=== PATIENT | male | born 1960 | race Caucasian/White ===

== ENCOUNTER 2016-10-07 15:48 | Inpatient (IN) | payer BC ==
[2016-10-07] MEDS ORDERED: METOCLOPRAMIDE 5 MG/ML 2 ML VIAL IVP STA (16:37)
[2016-10-07] MEDS ORDERED: SODIUM CHLORIDE 0.9% 500 ML IV STA (16:38)
[2016-10-07] MEDS ORDERED: PHENYTOIN SODIUM INJ 1,000 MG in SODIUM CHLORIDE 0.9% 100 ML IVPB STA (16:45)
[2016-10-07 16:52] LABS: Basophils # (A) 0.1 k/uL (0-0.2); Basophils % (A) 1 %; CH 36.2; CHCM 33.7; Eosinophils # (A) 0.1 k/uL (0-0.7); Eosinophils % (A) 1 %; HCT 44.4 % (39.0-53.0); HDW 2.35; HGB 14.6 gm/dL (13.0-17.5); Luc # (Auto) 0.15; Luc % (Auto) 2; Lymphocytes % (A) 13 %; MCH 35.4 pg (25.0-35.0); MCHC 32.9 g/dL (31.0-37.0); MCV 107.6 fL (80.0-100.0); Macrocytosis Moderate; Mean Platelet Volume 7.7; Monocytes # (A) 0.6 k/uL (0-1.0); Monocytes % (A) 7 %; Neutrophils # (A) 5.9 k/uL (1.3-7.7); Neutrophils % (A) 77 %; RBC 4.13 m/uL (4.30-5.90); RDW 12.4 % (11.5-15.5); WBC 7.7 k/uL (3.8-10.6); WBC (Perox) 7.94
[2016-10-07] MEDS ORDERED: DILTIAZEM 125 MG in SODIUM CHLORIDE 0.9% 100 ML IV SCH (17:00)
[2016-10-07 17:01] LABS: ALT 160 U/L (21-72); AST 192 U/L (17-59); Alkaline Phosphatase 75 U/L (38-126); Anion Gap 21 mmol/L; Blood Urea Nitrogen 8 mg/dL (9-20); Calcium 10.1 mg/dL (8.4-10.2); Carbon Dioxide 18 mmol/L (22-30); Chloride 105 mmol/L (98-107); Glucose 182 mg/dL (74-99); Non-African American GFR(MDRD) >60 (>60 ml/min/1.73 sqM); Potassium 4.2 mmol/L (3.5-5.1); Sodium 144 mmol/L (137-145); Total Bilirubin 1.2 mg/dL (0.2-1.3); Total Protein 7.5 g/dL (6.3-8.2)
[2016-10-07 17:17] LABS: INR 1.5 (<1.1); Prothrombin Time 14.5 sec (9.0-12.0)
--- NOTE | 2016-10-07 17:35 | ED ---
General Adult HPI - General Chief complaint: Seizure Stated complaint: seizure Time Seen by Provider: 10/07/16 16:23 Source: patient, family, EMS, RN notes reviewed Mode of arrival: EMS Limitations: no limitations - History of Present Illness Initial comments: Chief complaint and history of present illness a 55-year-old male here with his . The patient was brought emergency room by EMS. He this patient had a witnessed seizure last approximate 1 minute tonic-clonic. Followed by 5 minutes of postictal phase. Afterwards she was more alert and back to his normal self. The patient did bite his tongue. The bleeding is under control. The patient was brought emergency room by EMS and was noted that heart rate was fast new diagnosis today aside from his seizure which also occurred 2 years ago would be new-onset A. fib with RVR rate 150. The patient otherwise at this time denying chest pain shortness of breath or headache. He is answering questions appropriately. Past history includes having had 2 seizures while on vacation in [place] 2 years ago. He was transferred back to the Hospital and had a workup for seizure disorder. For the past 2 years she's been on Keppra decreasing dose until last month when it was stopped. He is only taking approximately 60 mg daily. It was decided he should stop. - Related Data Home Medications Medication Instructions Recorded Confirmed Esomeprazole Magnesium [Nexium] 40 mg PO DAILY 05/25/14 10/07/16 Fenofibric Acid (Choline) 135 mg PO DAILY 05/25/14 10/07/16 [Trilipix] Fluticasone Propionate [Flonase] 1 spray EA NOSTRIL DAILY 05/25/14 10/07/16 Lisinopril [Prinivil] 20 mg PO DAILY 05/25/14 10/07/16 Rivaroxaban [Xarelto] 20 mg PO DAILY 05/25/14 10/07/16 Cholecalciferol [Vitamin D3] 1,000 unit PO DAILY 10/07/16 10/07/16 Niacin 1,000 mg PO DAILY 10/07/16 10/07/16 [place]-3 Fatty Acids/Fish Oil [Fish 1 cap PO DAILY 10/07/16 10/07/16 Oil 1,000 mg Softgel] Vitamin B Complex 1 cap PO DAILY 10/07/16 10/07/16 Allergies Allergy/AdvReac Type Severity Reaction Status Date / Time Iodinated Contrast Media - Allergy throat Verified 10/07/16 16:24 Oral and swelling [Iodinated Contrast Media - IV Dye] lorazepam [From Ativan] Allergy Unknown Verified 10/07/16 16:24 shellfish derived Allergy throat Verified 10/07/16 16:24 swelling dimenhydrinate AdvReac SEIZURES Verified 10/07/16 16:24 [From Dramamine] diphenhydramine AdvReac SEIZURES Verified 10/07/16 16:24 [From Benadryl] steri strips AdvReac Rash/Hives Uncoded 05/25/14 08:44 Review of Systems ROS Statement: Those systems with pertinent positive or pertinent negative responses have been documented in the HPI. Review of systems at this time the patient is not complaining of a headache no visual acuity changes she does have a wound to his left side of his tongue where he bit it. Not bleeding now no chest pain shows breath GI/ problems. He does have an intentional tremor which is no worse today than it has been in the past. All systems are otherwise reviewed. Past medical problems significant for prostate cancer. DVT 5 years ago on Xarelto has not missed any doses. GERD, hyperlipidemia, hypertension, seizures disorder as noted in the chief complaint. In the benign hand tremor. The patient's surgeries include prostate surgery, knee surgery. Family history family member had multiple myeloma. The patient has ALLERGIES to iodine, and Ativan, diphenhydramine, Steri-Strips. She reports she smoked a little while in high school but not since then. He does drink several glasses of wine daily. We did discuss the possibility of seizure secondary to not having had any alcohol for the past 24 hours. ROS Other: All systems not noted in ROS Statement are negative. Past Medical History Past Medical History: Cancer, Deep Vein Thrombosis (DVT), GERD/Reflux, Hyperlipidemia, Hypertension, Seizure Disorder Additional Past Medical History / Comment(s): benign hand tremors, DVT leg 18 months ago, hx prostate cancer History of Any Multi-Drug Resistant Organisms: None Reported Past Surgical History: Orthopedic Surgery, Prostate Surgery Additional Past Surgical History / Comment(s): knee surg., robotic prostatectomy Past Anesthesia/Blood Transfusion Reactions: No Reported Reaction Past Psychological History: No Psychological Hx Reported Smoking Status: Never smoker Past Alcohol Use History: Occasional Past Drug Use History: None Reported General Exam - General Exam Comments Initial Comments: General: The patient is awake and alert, in no distress, and does not appear acutely ill. Vital signs show temperature 97.6 pulse 140, new onset A. fib, respiratory rate 18 pulse ox 90% in room air blood pressure 133/72. Mildly elevated systolic noted patient will be admitted to the hospital for further evaluation. Eye: Pupils are equal, round and reactive to light, extra-ocular movements are intact ; there is normal conjunctiva bilaterally. No signs of icterus. Ears, nose, mouth and throat: There are moist mucous membranes , patient bit the left side of his tongue leading control. Neck: The neck is supple, there is no tenderness . Cardiovascular: Lungs are clear to auscultation heart rate 150-160. EKG shows no onset A. fib. No murmur appreciated this time. Respiratory: Lungs are clear to auscultation, respirations are non-labored, breath sounds are equal. No wheezes, stridor, rales, or rhonchi. Gastrointestinal: Soft, non-distended, non-tender abdomen without masses or organomegaly noted. There is no rebound or guarding present. No CVA tenderness. Bowel sounds are unremarkable. Back: There is no tenderness to palpation in the midline. There is no obvious deformity. No rashes noted. Musculoskeletal: Normal ROM, no tenderness, There is no pedal edema. There is no calf tenderness or swelling. Sensation intact. Pulses equal bilaterally 2+. Neurological: CN II-XII intact, There are no obvious motor or sensory deficits. Coordination appears grossly intact. Speech is normal. No focal or lateralizing findings. Skin: Skin is warm and dry and no rashes or lesions are noted. Limitations: no limitations Course Vital Signs 10/07/16 10/07/16 15:56 17:19 Temperature 97.6 F Pulse Rate 89 168 H Respiratory 18 18 Rate Blood Pressure 133/72 115/81 O2 Sat by Pulse 93 L 92 L Oximetry Medical Decision Making - Medical Decision Making Medical decision-making. The patient will be given Dilantin 1 g consultation from neurology. The patient will also be given a banana bag for possibility of alcohol related seizure from withdrawal. The patient is at this time receiving Cardizem drip after 5 mg of Cardizem was administered. New-onset A. fib. The patient is already on Xarelto murmur previous DVT. Labs show white count 7.7 hemoglobin 14 hematocrit 44 with an INR 1.5. AST ALT elevated. Potassium 4.2 BUN 8 creatinine 0.88 GFR greater than 60. Case discussed with Dr. Jo, patient be admitted to his service with cardiac ALLERGY consultation as well as neurology consult. - Lab Data Result diagrams: 10/07/16 16:04 10/07/16 16:04 Lab Results 10/07/16 10/07/16 10/07/16 Range/Units 16:04 16:04 16:04 WBC 7.7 (3.8-10.6) k/uL RBC 4.13 L (4.30-5.90) m/uL Hgb 14.6 (13.0-17.5) gm/dL Hct 44.4 (39.0-53.0) % MCV 107.6 H (80.0-100.0) fL MCH 35.4 H (25.0-35.0) pg MCHC 32.9 (31.0-37.0) g/dL RDW 12.4 (11.5-15.5) % Plt Count 231 (150-450) k/uL Neutrophils % 77 % Lymphocytes % 13 % Monocytes % 7 % Eosinophils % 1 % Basophils % 1 % Neutrophils # 5.9 (1.3-7.7) k/uL Lymphocytes # 1.0 (1.0-4.8) k/uL Monocytes # 0.6 (0-1.0) k/uL Eosinophils # 0.1 (0-0.7) k/uL Basophils # 0.1 (0-0.2) k/uL Macrocytosis Moderate PT 14.5 H (9.0-12.0) sec INR 1.5 (<1.1) Sodium 144 (137-145) mmol/L Potassium 4.2 (3.5-5.1) mmol/L Chloride 105 (98-107) mmol/L Carbon Dioxide 18 L (22-30) mmol/L Anion Gap 21 mmol/L BUN 8 L (9-20) mg/dL Creatinine 0.88 (0.66-1.25) mg/dL Est GFR (MDRD) Af Amer >60 (>60 ml/min/1.73 sqM) Est GFR (MDRD) Non-Af >60 (>60 ml/min/1.73 sqM) Glucose 182 H (74-99) mg/dL Calcium 10.1 (8.4-10.2) mg/dL Total Bilirubin 1.2 (0.2-1.3) mg/dL AST 192 H (17-59) U/L ALT 160 H (21-72) U/L Alkaline Phosphatase 75 (38-126) U/L Total Protein 7.5 (6.3-8.2) g/dL Albumin 4.7 (3.5-5.0) g/dL Disposition Clinical Impression: Seizure disorder, Atrial fibrillation with RVR Disposition: ADMITTED IP TO THIS HOSP Condition: Serious
[2016-10-07] MEDS ORDERED: IBUPROFEN 400 MG TAB PO PRN (17:36)
[2016-10-07] MEDS ORDERED: NALOXONE 0.4 MG/ML 1 ML VIAL IV PRN (17:36)
[2016-10-07] MEDS ORDERED: SODIUM CHLORIDE 0.9% 1,000 ML with MVI, ADULT NO.4 WITH VIT K 10 ML, THIAMINE 100 MG, F... IV ONE ×4 (18:00)
[2016-10-07] MEDS ORDERED: DILTIAZEM 5 MG/ML 5 ML VIAL IVP STA (19:38)
[2016-10-07] MEDS ORDERED: levETIRAcetam IV 1,000 MG in SALINE 1 100ML.BAG IVPB STA (20:56)
[2016-10-07 21:00] LABS: Creatine Kinase 564 U/L (55-170)
[2016-10-07] MEDS ORDERED: AMIODARONE 450 MG in DEXTROSE 5% IN WATER 250 ML IV SCH ×4 (21:00→21:40)
[2016-10-07 21:13] LABS: Creatine Kinase MB 0.7 ng/mL (0.0-2.4); Troponin I <0.012 ng/mL (0.000-0.034)
[2016-10-07] MEDS ORDERED: DIAZEPAM 5 MG/ML 2 ML SYRINGE IVP STA ×2 (21:26→21:27)
[2016-10-07] MEDS ORDERED: DEXTROSE 5% IN WATER 100 ML with AMIODARONE 150 MG IV ONE (21:30)
--- NOTE | 2016-10-07 21:33 | CT ---
EXAMINATION TYPE: CT brain wo con DATE OF EXAM: 10/07/2016 9:25 PM COMPARISON: NONE HISTORY: Seizure today after stopping seizure medications x [address] DLP: 1047.10 mGycm Automated exposure control for dose reduction was used. FINDINGS: There is mild cerebral cortical atrophy. There is no mass effect nor midline shift. There is no sign of intracranial hemorrhage. The calvarium is intact. IMPRESSION: Mild atrophy. Otherwise negative exam.
--- NOTE | 2016-10-07 22:23 | ED ---
Medical Decision Making - Lab Data Result diagrams: 10/07/16 16:04 10/07/16 16:04 Lab Results 10/07/16 10/07/16 10/07/16 Range/Units 16:04 16:04 16:04 WBC 7.7 (3.8-10.6) k/uL RBC 4.13 L (4.30-5.90) m/uL Hgb 14.6 (13.0-17.5) gm/dL Hct 44.4 (39.0-53.0) % MCV 107.6 H (80.0-100.0) fL MCH 35.4 H (25.0-35.0) pg MCHC 32.9 (31.0-37.0) g/dL RDW 12.4 (11.5-15.5) % Plt Count 231 (150-450) k/uL Neutrophils % 77 % Lymphocytes % 13 % Monocytes % 7 % Eosinophils % 1 % Basophils % 1 % Neutrophils # 5.9 (1.3-7.7) k/uL Lymphocytes # 1.0 (1.0-4.8) k/uL Monocytes # 0.6 (0-1.0) k/uL Eosinophils # 0.1 (0-0.7) k/uL Basophils # 0.1 (0-0.2) k/uL Macrocytosis Moderate PT 14.5 H (9.0-12.0) sec INR 1.5 (<1.1) Sodium 144 (137-145) mmol/L Potassium 4.2 (3.5-5.1) mmol/L Chloride 105 (98-107) mmol/L Carbon Dioxide 18 L (22-30) mmol/L Anion Gap 21 mmol/L BUN 8 L (9-20) mg/dL Creatinine 0.88 (0.66-1.25) mg/dL Est GFR (MDRD) Af Amer >60 (>60 ml/min/1.73 sqM) Est GFR (MDRD) Non-Af >60 (>60 ml/min/1.73 sqM) Glucose 182 H (74-99) mg/dL Calcium 10.1 (8.4-10.2) mg/dL Total Bilirubin 1.2 (0.2-1.3) mg/dL AST 192 H (17-59) U/L ALT 160 H (21-72) U/L Alkaline Phosphatase 75 (38-126) U/L Total Creatine Kinase (55-170) U/L CK-MB (CK-2) (0.0-2.4) ng/mL CK-MB (CK-2) Rel Index Troponin I (0.000-0.034) ng/mL Total Protein 7.5 (6.3-8.2) g/dL Albumin 4.7 (3.5-5.0) g/dL Serum Alcohol mg/dL 10/07/16 10/07/16 Range/Units 16:04 16:04 WBC (3.8-10.6) k/uL RBC (4.30-5.90) m/uL Hgb (13.0-17.5) gm/dL Hct (39.0-53.0) % MCV (80.0-100.0) fL MCH (25.0-35.0) pg MCHC (31.0-37.0) g/dL RDW (11.5-15.5) % Plt Count (150-450) k/uL Neutrophils % % Lymphocytes % % Monocytes % % Eosinophils % % Basophils % % Neutrophils # (1.3-7.7) k/uL Lymphocytes # (1.0-4.8) k/uL Monocytes # (0-1.0) k/uL Eosinophils # (0-0.7) k/uL Basophils # (0-0.2) k/uL Macrocytosis PT (9.0-12.0) sec INR (<1.1) Sodium (137-145) mmol/L Potassium (3.5-5.1) mmol/L Chloride (98-107) mmol/L Carbon Dioxide (22-30) mmol/L Anion Gap mmol/L BUN (9-20) mg/dL Creatinine (0.66-1.25) mg/dL Est GFR (MDRD) Af Amer (>60 ml/min/1.73 sqM) Est GFR (MDRD) Non-Af (>60 ml/min/1.73 sqM) Glucose (74-99) mg/dL Calcium (8.4-10.2) mg/dL Total Bilirubin (0.2-1.3) mg/dL AST (17-59) U/L ALT (21-72) U/L Alkaline Phosphatase (38-126) U/L Total Creatine Kinase 564 H (55-170) U/L CK-MB (CK-2) 0.7 (0.0-2.4) ng/mL CK-MB (CK-2) Rel Index 0.1 Troponin I <0.012 (0.000-0.034) ng/mL Total Protein (6.3-8.2) g/dL Albumin (3.5-5.0) g/dL Serum Alcohol <10 mg/dL Critical Care Time Critical Care Time: Yes (Examination multiple reexaminations. The patient presented with various ar) Total Critical Care Time: 50 (As above) Disposition Clinical Impression: Seizure disorder, Atrial fibrillation with RVR Disposition: ADMITTED IP TO THIS [facility] Condition: Serious
[2016-10-07 23:54] VITALS: BMI 26.4
[2016-10-08] MEDS: DIAZEPAM 5 MG TAB PO SCH ×5 (00:08→22:11)
[2016-10-08] MEDS: FAMOTIDINE 20 MG TAB PO SCH ×2 (00:08→09:15)
[2016-10-08] MEDS: METOPROLOL TARTRATE 25 MG TAB PO SCH ×2 (00:12→09:17)
--- NOTE | 2016-10-08 05:25 | HP ---
DATE OF ADMISSION: 10/07/2016 PRESENTING COMPLAINT: Seizure. HISTORY OF PRESENTING COMPLAINT: A pleasant 55-year-old patient of my ( ) Dr. Thompson. Patient 2 years ago was in [place] when he had a seizure activity , was started on Keppra. Patient was [place] the [place] and over a period of time until about a month ago the patient's Keppra was slowly weaned off. Patient had a generalized tonic-clonic seizure activity at home then some small episodes in the ambulance and then one in the ER. Notes that patient has been drinking 2 bottles of alcohol for several years. Patient also on Xarelto for DVT 18 months ago. Patient when came in was found to be in atrial fibrillation with rapid ventricular rate, put on IV Cardizem and IV amiodarone in the ER. Patient's is at the bedside. REVIEW OF SYSTEMS: CONSTITUTIONAL: Tired. HEENT: None. RESPIRATORY: None. CARDIOVASCULAR: Palpitation. GASTROINTESTINAL: None. GENITOURINARY: None. MUSCULOSKELETAL: None. DERMATOLOGICAL: None. HEMATOLOGICAL: None. LYMPHATICS: None. PSYCHIATRY: Anxious. NEUROLOGICAL: Tremors. Past history of left leg DVT 18 months ago, GERD, hyperlipidemia, hypertension, seizure disorder. PAST SURGICAL HISTORY: Prostate surgery, knee surgery, robotic prostatectomy. SOCIAL HISTORY: No smoking. Alcohol 2 bottles of wine a day for many years. ( ) factory with the . FAMILY HISTORY: Reviewed; noncontributory to presentation. HOME MEDICATIONS: 1. Vitamin B complex 1 capsule p.o. daily. 2. Fish oil 1 capsule p.o. daily. 3. Flonase one spray each nostril daily. 4. Choline 135 mg p.o. daily. 5. Vitamin D3, 1000 units p.o. daily. 6. Xarelto 20 mg p.o. daily. 7. Niacin 1000 mg p.o. daily. 8. Prinivil 20 mg daily. 9. Nexium 40 mg daily. Allergies to IV CONTRAST DYE, SHELLFISH, BENADRYL. ON EXAMINATION: VITAL SIGNS ON PRESENTATION: Temperature 98.4, pulse 146, respiration 18, blood pressure 123/85, pulse ox 94% on 2 L. GENERAL APPEARANCE: Average built, lying in bed, jittery. EYES: Pupils are equal. Conjunctiva slightly blood shot. HENT: External appearance of nose and ears normal. Oral cavity normal. NECK: JVD not raised. Mass not palpable. RESPIRATORY: Effort normal. LUNGS: Fair air entry. CARDIOVASCULAR: Heart sounds irregular. No edema. ABDOMEN: Soft, nontender. Liver and spleen not palpable. LYMPHATIC: No lymph nodes palpable in neck or axillae. PSYCHIATRY: Alert and oriented x3. Mood and affect anxious appearing. NEUROLOGICAL: Pupils equal. No facial asymmetry. Fine tremors present. DERMATOLOGIC: Spider nevi in the upper chest and Dupuytren's contracture in both the hands. INVESTIGATIONS: White count 7.7, hemoglobin 14.6, MCV 107.6. Pro time 14.5. Potassium 4.2. BUN 8. AST 192, ALT 160. Troponin negative. Serum alcohol less than 10. EKG atrial fibrillation with rapid ventricular rate. ASSESSMENT: 1. New onset atrial fibrillation with rapid ventricular rate, that could be underlying dilated cardiomyopathy from long-standing use of alcohol or this could be alcohol-induced by itself. 2. Alcohol withdrawal symptoms also manifesting as increased heart rate and tremors. 3. Chronic alcohol dependence. 4. Alcoholic hepatitis. 5. Prolonged pro time from alcoholic liver disease. 6. Probably alcohol related seizures. 7. History of deep venous thrombosis for which patient had been on Xarelto. PLAN: Patient and were counseled extensively against use of alcohol. Currently for alcohol withdrawal will start the patient on Valium 10 mg q.6 to be held for respiration less than 12, to cut back on the sympathetic drive will use beta raffy 25 mg 3 times a day of Lopressor. Given patient's abnormal liver function test, will stop patient's amiodarone. Patient was put on a Cardizem drip in the ER that can be slowly weaned off. Patient also will be put on a Thiamine supplement. Seizure precautions are in place. Additionally, a 2-D echocardiogram is being ordered.
[2016-10-08] MEDS ORDERED: LISINOPRIL 20 MG TAB PO SCH (09:00)
[2016-10-08] MEDS: CHOLECALCIFEROL 1,000 UNIT TAB PO SCH (09:15)
[2016-10-08] MEDS: FENOFIBRATE 160 MG TAB PO SCH (09:15)
[2016-10-08] MEDS: PANTOPRAZOLE 40 MG TABLET PO SCH (09:15)
[2016-10-08] MEDS: RIVAROXABAN 10 MG TAB PO SCH (09:15)
[2016-10-08] MEDS: NIACIN TR 500 MG CAPSULE.ER PO SCH (09:15)
[2016-10-08] MEDS: FLUTICASONE 50MCG/SPRAY NASAL 16GM EA NOSTRIL SCH (09:29)
--- NOTE | 2016-10-08 10:05 | ECHOF ---
Referral Reason:af MEASUREMENTS -------- HEIGHT: 177.8 cm WEIGHT: 89.8 kg BP: 112/67 RVIDd: 3.5 cm (< 3.3) IVSd: 1.1 cm (0.6 - 1.1) LVIDd: 3.9 cm (3.9 - 5.3) LVPWd: 1.1 cm (0.6 - 1.1) IVSs: 1.7 cm LVIDs: 2.6 cm LVPWs: 1.8 cm LA Diam: 3.4 cm (2.7 - 3.8) LAESV Index (A-L): 29.05 ml/m Ao Diam: 3.6 cm (2.0 - 3.7) AV Cusp: 2.8 cm (1.5 - 2.6) MV EXCURSION: 18.048 mm (> 18.000) MV EF SLOPE: 103 mm/s (70 - 150) EPSS: 0.8 cm MV E Tru: 0.71 m/s MV DecT: 235 ms MV A Tru: 0.52 m/s MV E/A Ratio: 1.35 FINDINGS -------- Sinus rhythm. This was a technically good study. The left ventricular size is normal. There is borderline concentric left ventricular hypertrophy. Overall left ventricular systolic function is normal with, an EF between 60 - 65 %. The right ventricle is mildly enlarged. LA is midly dilated 29-33ml/m2. The right atrium is normal in size. The aortic valve is trileaflet and appears structurally normal. The mitral valve is normal. Trace tricuspid regurgitation present. Trace/mild (physiologic) pulmonic regurgitation. The aortic root size is normal. There is no pericardial effusion. CONCLUSIONS -------- 1. Sinus rhythm. 2. The mitral valve is normal. 3. Trace tricuspid regurgitation present. 4. Trace/mild (physiologic) pulmonic regurgitation. 5. The aortic root size is normal. 6. There is no pericardial effusion. 7. This was a technically good study. 8. The left ventricular size is normal. 9. There is borderline concentric left ventricular hypertrophy. 10. Overall left ventricular systolic function is normal with, an EF between 60 - 65 %. 11. The right ventricle is mildly enlarged. 12. LA is midly dilated 29-33ml/m2. 13. The right atrium is normal in size. 14. The aortic valve is trileaflet and appears structurally normal. TRAVEL REGISTERED NURSE PACU: Dary Dumas RDCS
--- NOTE | 2016-10-08 12:03 | CONS ---
DATE OF CONSULTATION: CHIEF COMPLAINT: Atrial fibrillation. Maxx is a 55-year-old gentleman with history of ETOH abuse, who presented to the hospital having had an episode of seizures yesterday. The patient has history of seizure and had an episode of seizure about 2 years ago while he was on [place] with his son. Yesterday this happened while he was sitting and watching TV and was witness by his . There was no bladder or bowel incontinence, no focal neurological deficits. It came on suddenly and gradually subsided on its own. There is history of ETOH abuse. He drinks at least two bottles of wine every day. At the time of his initial presentation, he was in atrial fibrillation with rapid ventricular rate subsequently converted to sinus rhythm on his own. Patient takes Xarelto for DVT in the past. At the time of my evaluation, he is in sinus rhythm and is free of any cardiac symptoms. He had an echocardiogram done today showed normal LV systolic function and there is no significant valvular heart disease. Past medical history is significant for DVT, hypertension, gastroesophageal reflux disease, dyslipidemia. His current medications include: 1. Fish oil. 2. Flonase. 3. ( ). 4. Xarelto. 5. Prinivil. 6. Nexium. THE PATIENT IS ALLERGIC TO BENADRYL, DRAMAMINE, IV DYE AND SHELLFISH. FAMILY HISTORY: Significant for valvular heart disease in his mother. One of the uncles had premature coronary artery disease. SOCIAL HISTORY: Significant for ETOH abuse. Denies smoking. REVIEW OF SYSTEMS: HEENT: Unremarkable. CARDIAC: As described above. RESPIRATORY: Negative. GI: Negative. GENITOURINARY: Negative. Allergy/immunology: Negative. SKIN: Negative. ENDOCRINE: Negative. DERM: Negative. CONSTITUTIONAL: Negative. [employer]: Significant for seizures. The rest of the system review is not relevant. On exam, afebrile. Heart rate is 73, blood pressure 110/57 respiratory rate is 18. There is no jugular venous distention. Carotid upstroke is normal. There is no bruit. Chest exam reveals good air entry bilaterally. Heart exam reveals first and second heart sounds. No gallop. No murmur. Abdomen soft, nontender. Exam of the extremities did not reveal edema. Peripheral pulses are felt. EKG this morning shows sinus rhythm. Initial EKG showed atrial fibrillation with rapid ventricular rate. Echocardiogram shows normal LV function. Labs show a hemoglobin of 14.6, platelet count is 231, INR is elevated at 1.5. Potassium is 4.2. Creatinine is 0.8. Troponin is normal. ASSESSMENT: 1. Paroxysmal atrial fibrillation with rapid ventricular rate. 2. History of ETOH abuse. 3. Seizure disorder. 4. History of deep venous thrombosis. PLAN: I am going to start the patient on Tenormin 25 mg daily. Stop the amiodarone, Cardizem. Reviewed the echo results. From my standpoint he can be discharged home and he will have outpatient follow-up through my office. May need a Holter and stress test down the road.
[2016-10-08] MEDS: THIAMINE 100 MG TAB PO SCH (12:34)
--- NOTE | 2016-10-08 18:17 | PN ---
DATE OF SERVICE: 10/08/2016 PRESENTING COMPLAINT: Alcohol withdrawal seizures, A. fib. INTERVAL HISTORY: This is a patient who presented with A. fib., alcohol withdrawal and seizures. Patient is back in sinus rhythm. No further seizures, has been on Keppra and Valium. is at the bedside. Patient appears to be less jittery. Review of systems done for constitutional cardiovascular, GI, pulmonary; relevant findings as above. Current medications include: 1. Tenormin 25 mg a day. 2. Valium 10 mg every 6 hours. 3. Keppra 750 q.12. On examination, temperature 98.7, pulse 73, respirations 16, blood pressure 110/57, pulse ox 93% on 2L. GENERAL APPEARANCE: Lying in bed, looks more stable. EYES: Pupils equal. Conjunctivae normal. NECK: JVD not raised. Mass not palpable. RESPIRATORY: Effort normal. LUNGS: Fair air entry. CARDIOVASCULAR: First and second sounds normal. No edema. ABDOMEN: Soft. Liver is palpable. PSYCHIATRY: Less anxious. NEUROLOGICAL: Decreased tremors. INVESTIGATIONS: No blood work from today. Telemetry: Sinus rhythm. 1. Paroxysmal atrial fibrillation with rapid ventricular rate, now back in sinus rhythm, probably alcohol induced. 2. Alcohol withdrawal symptoms, doing better with Valium. 3. Chronic alcohol dependence. 4. Alcoholic hepatitis. 5. Prolonged pro time from alcoholic liver disease. 6. Probably alcohol-related seizures. 7. History of deep venous thrombosis for which patient has been on Xarelto. PLAN: Care was again discussed with patient and at the bedside. We will cut back on the Valium to 7.5 every 6 hours. Patient is being switched over to Tenormin. Continue with Keppra. 2-D echo results are noted. vitamin K will not be added. Patient and again discussed about risk of bleeding because of alcohol and blood thinners.
[2016-10-09 00:32] VITALS: RESP 18
[2016-10-09 07:44] VITALS: BP 142/97; PULSE 67; TEMP 96.9
--- NOTE | 2016-10-09 08:28 | CONS ---
DATE OF CONSULTATION: 10/08/16 CHIEF COMPLAINT: Seizures. HISTORY OF PRESENT ILLNESS: Mr. St is a pleasant 55-year-old male who is being evaluated by the neurology service per the request of Dr. Jo for seizures. The patient was brought into [facility] emergency room after he had a generalized tonic seizure at home that was witnessed by his . The seizure lasted approximately one minute and was followed by postictal confusion and drowsiness. No sphincter incontinence occurred, but the patient did bite his tongue. EMS was called and the patient was transferred to the emergency room where he had another tonic seizure witnessed by the emergency room staff. The patient did have 2 previous seizures approximately 2 years ago while he was vacationing with his in [place]. At that time, he was started on Keppra. Over the past few months, he has been weaning off of Keppra due to the side effects. He reports side effects of gait instability and episodes amnesia while on Keppra. He was completely weaned off of Keppra approximately one month ago. At this time, I did restart him on Keppra due to his two witnessed seizures. The patient has an extensive history of daily alcohol use and his liver enzymes are elevated with an AST of 192 and an ALT of 160. A CT scan of the brain was done, which showed mild generalized atrophy with no acute intracranial abnormalities. His CBC was normal. His cardiac enzymes were normal except for mildly elevated CPK at 564. At the time of my evaluation, the patient is sitting up in his bed and appears to be in no acute distress. He is on seizure precautions and he has not had any further seizures since his admission. PAST MEDICAL HISTORY: Seizure disorder, gastroesophageal reflux disease, dyslipidemia, hypertension, history of deep venous thrombosis, history of prostate surgery, knee surgery. SOCIAL HISTORY: The patient drinks approximately 2 bottles of wine per day. He denies any tobacco or drug use. FAMILY HISTORY: Noncontributory. HOME MEDICATIONS: Reviewed in the chart. ALLERGIES: IV DYE, BENADRYL, SHELLFISH. REVIEW OF SYSTEMS: CONSTITUTIONAL: Negative. EYES: Negative. ENT: Negative. CARDIOVASCULAR: Negative. RESPIRATORY: Negative. NEUROLOGICAL: As mentioned above. GASTROINTESTINAL: Positive for occasional heartburn. GENITOURINARY: Negative. PSYCHIATRIC: Negative. Dermatological: Negative. MUSCULOSKELETAL: Negative. ENDOCRINE: Negative. PHYSICAL EXAM: Vital signs show a temperature of 98.4, pulse 70, respirations 12, blood pressure 103/66. GENERAL APPEARANCE: The patient is a well-developed male who appears to be in no acute distress. HEENT: Normocephalic, atraumatic, no facial asymmetry is seen. There is a tongue laceration on the left side. Neck is supple with no masses felt. CARDIOVASCULAR: Regular rate and rhythm. ABDOMEN: Nontender, nondistended. EXTREMITIES: No edema or clubbing. NEUROLOGICAL EXAM: The patient is alert, aware, and oriented x3. Speech and language are normal. Strength is full in all 4 extremities. Sensory exam was normal to light touch in all 4 extremities. No tremors or seizure-like activity is seen. No facial asymmetry is noticed on cranial nerve testing. IMPRESSION: 1. Seizure disorder, generalized tonic-clonic type. 2. Alcohol abuse. 3. Hepatic insufficiency. RECOMMENDATIONS: The patient did have 2 witnessed generalized tonic seizure and he did have 2 previous seizures a couple of years ago. The patient will need to continue on antiepileptic medications. Given his alcohol abuse and hepatic insufficiency, Keppra is only antiepileptic medications recommended. Regarding his previously mentioned side effects on Keppra, I do believe that this was due to the combination of Keppra and alcohol. The patient was counseled extensively on alcohol cessation. I will keep him on Keppra 750 mg b.i.d. An EEG has been ordered. The patient was told that he is not to drive or operate any heavy machinery for a period of 6 months. Continue seizure precautions and neuro checks. I will continue to follow with you. Further recommendations to follow. Thank you for allowing me to participate in the care of your patient. If you have any questions, please feel free to contact me. MARLON
[2016-10-09] MEDS: CHOLECALCIFEROL 1,000 UNIT TAB PO SCH (08:54)
[2016-10-09] MEDS ORDERED: ATENOLOL 25 MG TAB PO SCH (09:00)
[2016-10-09] MEDS: FLUTICASONE 50MCG/SPRAY NASAL 16GM EA NOSTRIL SCH (09:01)
[2016-10-09] MEDS: FENOFIBRATE 160 MG TAB PO SCH (09:04)
[2016-10-09] MEDS: PANTOPRAZOLE 40 MG TABLET PO SCH (09:04)
[2016-10-09] MEDS: NIACIN TR 500 MG CAPSULE.ER PO SCH (09:04)
[2016-10-09] MEDS: RIVAROXABAN 10 MG TAB PO SCH (09:05)
[2016-10-09] MEDS: DIAZEPAM 5 MG TAB PO SCH (09:11)
[2016-10-09 09:18] LABS: ALT 125 U/L (21-72); AST 159 U/L (17-59); Alkaline Phosphatase 59 U/L (38-126); Anion Gap 19 mmol/L; Blood Urea Nitrogen 11 mg/dL (9-20); Calcium 9.4 mg/dL (8.4-10.2); Carbon Dioxide 19 mmol/L (22-30); Chloride 106 mmol/L (98-107); Glucose 97 mg/dL (74-99); Magnesium 1.8 mg/dL (1.6-2.3); Non-African American GFR(MDRD) >60 (>60 ml/min/1.73 sqM); Potassium 3.4 mmol/L (3.5-5.1); Sodium 144 mmol/L (137-145); Total Bilirubin 1.5 mg/dL (0.2-1.3)
[2016-10-09] MEDS: THIAMINE 100 MG TAB PO SCH (11:10)
--- NOTE | 2016-10-09 13:03 | P.PN ---
Progress Note - Text This is a pleasant 55-year-old gentleman with a past medical history significant for hypertension and dyslipidemia who was admitted to the hospital with a seizure. The patient was found to be in A. fib and he was converted to normal sinus mechanism. From the cardiovascular standpoint of view, he denies having any chest pain or discomfort or difficulty breathing or heart racing or fluttering. He continues to be in normal sinus mechanism and he was started on anticoagulation with one of the new or agents. From the cardiovascular standpoint overview, the patient can be discharged home.
--- NOTE | 2016-10-09 14:42 | P.PN ---
Subjective Principal diagnosis: Seizures This 55-year-old male continue be evaluated by the neurology service for seizures. His brought to the emergency room status post generalized tonic- clonic seizure at home. His last seizures were about 2 years ago when he was vacationing in [place]. At that time he was started on Keppra. He had been weaning off Keppra recently due to some side effects. He has been off Keppra for about one month. We have restarted him on Keppra 750 mg twice a day and he denies any significant side effects. There is been no seizure activity since his admission. Computed tomography scan of the brain showed mild generalized atrophy and no acute intracranial abnormalities. At time my evaluation is sitting up at his bedside eating lunch in no acute distress. Objective - Vital Signs Vital signs: Vital Signs Temp 96.9 F L 10/09/16 07:00 Pulse 67 10/09/16 07:00 Resp 18 10/09/16 07:00 BP 142/97 10/09/16 07:00 Pulse Ox 98 10/09/16 07:00 Intake & Output 10/08/16 10/09/16 10/09/16 18:59 06:59 18:59 Intake Total 1167 Balance 1167 Weight 81 kg Intake: Intake, IV Titration 15 Amount Diltiazem 125 mg In 15 Sodium Chloride 0.9% 100 ml @ 5 MG/HR 5 mls/hr IV .Q24H [facility] Rx#:[id number] Oral 1152 Other: Voiding Method Urinal Toilet Urinal # Voids 2 2 - Constitutional General appearance: Present: average body habitus, cooperative, no acute distress - EENT Eyes: Present: EOMI, PERRLA. Absent: abnormal pupil, ptosis ENT: Present: hearing grossly normal - Respiratory Respiratory: negative: prolonged expiration, prolonged inspiration - Cardiovascular Rhythm: regular - Gastrointestinal General gastrointestinal: Absent: distended - Neurologic Neurologic Comment(s): Patient is alert awake and oriented 3. Speech-language are normal. There is no lateralizing weakness. No tremors or seizure-like activities are seen. Strength is full in bilateral upper and lower extremities. - Labs CBC & Chem 7: 10/07/16 16:04 10/09/16 08:23 Labs: Abnormal Lab Results - Last 24 Hours (Table) 10/09/16 Range/Units 08:23 Potassium 3.4 L (3.5-5.1) mmol/L Carbon Dioxide 19 L (22-30) mmol/L Total Bilirubin 1.5 H (0.2-1.3) mg/dL AST 159 H (17-59) U/L ALT 125 H (21-72) U/L Assessment and Plan (1) Atrial fibrillation with RVR Status: Acute (2) Seizure disorder Status: Acute Plan: Patient has had no further seizure activities. Recommending continuation of Keppra 750 mg twice a day. We will follow him up in an outpatient setting. He is again reminded that he is not to drive for a period of 6 months since his last seizure. Otherwise he is cleared from neurological standpoint. I have performed a history and physical on the above patient. I have reviewed the above note, and agree.
--- NOTE | 2016-10-10 10:37 | DS ---
DATE OF ADMISSION: 10/07/2016 DATE OF DISCHARGE: 10/09/2016 FINAL DIAGNOSES: 1. Paroxysmal atrial fibrillation with rapid ventricular rate, probably alcohol-induced. 2. Alcohol withdrawal symptoms, present at admission. 3. Chronic alcohol dependence. 4. Alcoholic hepatitis. 5. Prolonged pro time from alcoholic liver disease. 6. Alcohol-related seizures. 7. History of deep venous thrombosis for which patient has been on Xarelto. HOSPITAL COURSE: This patient drinks a fair amount of alcohol presented with atrial fibrillation with rapid ventricular rate that had converted to sinus rhythm. Also had seizures. Patient's Keppra had just been stopped after having a seizure episode 2 years ago. Patient has also had alcohol withdrawal responded well to beta blockers and Valium. Patient did not want to have an EEG done, wanted to have this as outpatient. A 2-D echocardiogram was unremarkable. On the day of discharge, patient was counseled extensively about cessation of alcohol. On exam, lungs are clear. CARDIOVASCULAR: First and second seconds are normal. Patient counseled against not to drive until further notice. Discharge planning more than 35 minutes. DISCHARGE MEDICATIONS: 1. Nexium 40 mg a day. 2. Choline 135 mg p.o. daily. 3. Xarelto 20 mg p.o. daily. 4. Vitamin D3, 1000 units p.o. daily. 5. Niacin 1000 mg p.o. daily. 6. Fish oil 1 capsule p.o. daily. 7. Vitamin B complex 1 capsule p.o. daily. 8. Tenormin 25 mg p.o. daily. 9. Valium taper. 10. Disulfiram 500 mg a day for 1 week then 250 mg a day. 11. Thiamine 100 mg a day. 12. Keppra 750 mg q.12. Follow up with Dr. Thompson on 10/16/16. Follow up with Dr. Bri Rodriguez on 10/26/16 for alcoholic hepatitis. Follow up with Dr. Yeni Bennett on 10/23/16. No driving until further notice. No alcohol. Discharge planning more than 35 minutes.
== END 2016-10-09 14:14 | disposition home or self-care (01) | DRG 897 ==
LOC: EC 15:48 → 6SEL 17:37 → 4MS4W 10-08 19:22
PROVIDERS: ADMIT Hospitalist; ATTEND Hospitalist
DX: F10.239 Alcohol dependence with withdrawal, unspecified (principal); G40.409 Other generalized epilepsy and epileptic syndromes, not intractable, without status epilepticus; K70.10 Alcoholic hepatitis without ascites; I48.0 Paroxysmal atrial fibrillation; E78.5 Hyperlipidemia, unspecified; I10 Essential (primary) hypertension; K21.9 Gastro-esophageal reflux disease without esophagitis; Y90.0 Blood alcohol level of less than 20 mg/100 ml; Z85.46 Personal history of malignant neoplasm of prostate; Z86.718 Personal history of other venous thrombosis and embolism; Z88.8 Allergy status to other drugs, medicaments and biological substances; Z91.041 Radiographic dye allergy status; Z91.013 Allergy to seafood; Z79.01 Long term (current) use of anticoagulants; Z79.899 Other long term (current) drug therapy
CPT/HCPCS: 36415; 70450; 80053; 80320; 82550; 82553; 83735; 84484; 85025; 85610; 93005; 93306; 96365; 96368; 96375; 96376; 99291

== ENCOUNTER → 2018-02-11 | Outpatient (CLI) | payer BC ==
--- NOTE | 2018-02-11 08:15 | US ---
EXAMINATION TYPE: US abdomen complete DATE OF EXAM: 02/11/2018 COMPARISON: NONE CLINICAL HISTORY: R74.8 Abnormal levels of other serum enzymes. Elevated liver enzymes. EXAM MEASUREMENTS: Liver Length: 20.0 cm Gallbladder Wall: 0.3 cm CBD: 0.4 cm Spleen: 8.6 cm Right Kidney: 11.9 x 4.7 x 4.7 cm Left Kidney: 11.9 x 6.0 x 5.0 cm Technical limitations due to large amount of overlying bowel content. Patient not NPO, ate breakfas t Pancreas: Obscured by bowel gas Liver: enlarged, attenuating Gallbladder: no evidence of stones Evidence for sonographic Dunham's sign: no CBD: limited evaluation Spleen: appears wnl as visualized Right Kidney: no evidence of hydronephrosis Left Kidney: no evidence of hydronephrosis Upper IVC: appears wnl Abd Aorta: visualized portions show no evidence of AAA, limited evaluation IMPRESSION: 1. Hepatomegaly with mild fatty infiltration.
== END | disposition home or self-care (01) ==
LOC: RADUSWWP 07:18
PROVIDERS: ATTEND Family Medicine
DX: K76.0 Fatty (change of) liver, not elsewhere classified (principal); R16.0 Hepatomegaly, not elsewhere classified
CPT/HCPCS: 76700

== ENCOUNTER → 2019-05-02 | Outpatient (CLI) | payer BC | END | disposition home or self-care (01) | LOC: LABWHC1 07:59 | PROVIDERS: ATTEND Otolaryngology | DX: J30.89 Other allergic rhinitis (principal) | CPT/HCPCS: 36415 ==

== ENCOUNTER → 2019-06-08 | Outpatient (CLI) | payer BC ==
--- NOTE | 2019-06-08 10:04 | XR ---
EXAMINATION TYPE: XR Hip RT and AP Pelvis DATE OF EXAM: 06/08/2019 COMPARISON: NONE HISTORY: Right hip pain TECHNIQUE: A single AP view of the pelvis is obtained. Two views of the right hip are obtained. FINDINGS: There is no acute fracture/dislocation evident in the pelvis. Hypertrophic change and narr owing of the joint space noted. Correlate for femoral acetabular impingement. Calcifications the pelv is appear to be vascular. SI joints symmetric. IMPRESSION: 1. No acute fracture. 2. Arthropathy correlate for femoral acetabular impingement. 3. There is some heterogeneity to the proximal diaphysis of the right femur. Bone scan is recommended to assess for bone lesion.
== END | disposition home or self-care (01) ==
LOC: RADXRMAIN 09:42
PROVIDERS: ATTEND Physician Assistant
DX: M16.11 Unilateral primary osteoarthritis, right hip (principal); R93.7 Abnormal findings on diagnostic imaging of other parts of musculoskeletal system
CPT/HCPCS: 73502

== ENCOUNTER → 2019-06-19 | Outpatient (CLI) | payer BC ==
--- NOTE | 2019-06-19 15:52 | NM ---
EXAMINATION TYPE: NM bone/joint limited DATE OF EXAM: 06/19/2019 COMPARISON: Pelvis dated 06/08/2019 HISTORY: Pain in right hip, history of prostate cancer TECHNIQUE: After the intravenous administration of 24.3 mCi Tc 99m MDP. Images acquired 3 hours pos t injection. Multiple views of the pelvis, lower chest are submitted. Result mildly increased uptake in the posterior proximal femur which corresponds to the abnormality s een on plain film. Mild uptake within the knees, shoulders, sternoclavicular joints is likely degener ative as well as costophrenic angles at the left 10th rib, right ninth rib proximally. Soft tissue up take is normal. Mild uptake noted lumbar lumbar spine. IMPRESSION: Mild heterogeneity on plain film show some mild uptake on bone scan. Right hip MRI may be of benefit. Additional probable degenerative changes.
== END | disposition home or self-care (01) ==
LOC: RADNMMAIN 10:16
PROVIDERS: ATTEND Family Medicine
DX: R93.7 Abnormal findings on diagnostic imaging of other parts of musculoskeletal system (principal); M25.551 Pain in right hip
CPT/HCPCS: 78300; A9503

== ENCOUNTER 2020-05-09 13:24 | Inpatient (IN) | payer BC ==
[2020-05-09 14:50] LABS: Lactic Acid, Venous 1.8 mmol/L (0.7-2.0)
[2020-05-09 14:51] LABS: Albumin 3.4 g/dL (3.5-5.0); Bilirubin, Conjugated 18.4 mg/dL (0.0-0.3); Bilirubin,Unconjugated 2.9 mg/dL (0.0-1.1); Calcium 8.7 mg/dL (8.4-10.2); Potassium 4.3 mmol/L (3.5-5.1); Total Protein 6.3 g/dL (6.3-8.2)
[2020-05-09 15:13] LABS: INR 1.6 (<1.2); Partial Thromboplastin Time 27.4 sec (22.0-30.0); Prothrombin Time 15.9 sec (9.0-12.0)
[2020-05-09 15:16] LABS: Basophils % (A) 0 %; Eosinophils # (A) 0.1 k/uL (0-0.7); Eosinophils % (A) 0 %; HGB 11.3 gm/dL (13.0-17.5); Lymphocytes % (A) 9 %; MCH 37.7 pg (25.0-35.0); MCHC 32.3 g/dL (31.0-37.0); MCV 116.7 fL (80.0-100.0); Macrocytosis Marked; Mean Platelet Volume 8.4; Monocytes # (A) 0.9 k/uL (0-1.0); Monocytes % (A) 7 %; Neutrophils # (A) 9.5 k/uL (1.3-7.7); Neutrophils % (A) 83 %; Platelet Count 162 k/uL (150-450); RDW 13.9 % (11.5-15.5); WBC 11.4 k/uL (3.8-10.6)
[2020-05-09 15:22] LABS: Hypochromasia (M) Present; Target Cells Present
[2020-05-09 15:23] LABS: Polychromasia Present
--- NOTE | 2020-05-09 16:01 | ED ---
General Adult HPI - General Chief complaint: Recheck/Abnormal Lab/Rx Stated complaint: Sent by PCP - liver issues/fall Time Seen by Provider: 05/09/20 13:59 Source: patient Mode of arrival: wheelchair Limitations: no limitations - History of Present Illness Initial comments: 59-year-old male who presents to the emergency department from Dr. Thompson's of [facility]. states the patient has appeared jaundice for the past week and a half. On Wednesday he began having hematuria. He does take Sarot, therefore he stopped taking this medication. On Wednesday he was hanging out with a friend attempting to look at bowl when he fell through the [place]. He fell and twisted his right knee and has been having some pain. Reports that he woke up at 3 AM on Wednesday with pain in the right knee. He attempted to go down the basement stairs to get some Tylenol and ended up falling down 13 [address]ed steps. He did hit his head. Unsure if he lost consciousness. reports that he was immediately responsive so she does not think that he lost consciousness. had an appointment yesterday with Dr. Thompson. Patient went with her and Dr. Thompson was concerned about his jaundice. He did order laboratory studies. He followed up today for his laboratory studies. They noted that his bilirubins were 25 and had an increase in his AST. He has a history of alcohol abuse. Patient reports to drinking 2 glasses of wine per day. Dr. Thompson is concerned about abdominal trauma with this fall. He has a large ecchymotic area across his anterior abdomen. He then recommended that he come into the emergency department for evaluation. - Related Data Home Medications Medication Instructions Recorded Confirmed Fenofibric Acid (Choline) 135 mg PO DAILY 05/25/14 05/09/20 [Trilipix] Rivaroxaban [Xarelto] 20 mg PO DAILY 05/25/14 05/09/20 Cholecalciferol [Vitamin D3 (25 2,000 unit PO DAILY 10/07/16 05/09/20 Mcg = 1000 Iu)] Vitamin B Complex 1 cap PO DAILY 10/07/16 05/09/20 Fish Oil/Dha/Epa [Fish Oil 1,200 1 cap PO DAILY 05/09/20 05/09/20 mg Fish Oil] Niacin [Niacin ER] 1,000 mg PO DAILY 05/09/20 05/09/20 Omeprazole 40 mg PO DAILY 05/09/20 05/09/20 levETIRAcetam [Keppra] 250 mg PO TID 05/09/20 05/09/20 Previous Rx's Medication Instructions Recorded atenoloL [Tenormin] 25 mg PO DAILY #30 tab 10/09/16 Allergies Allergy/AdvReac Type Severity Reaction Status Date / Time Iodinated Contrast Media Allergy throat Verified 05/09/20 14:13 [Iodinated Contrast Media - swelling IV Dye] Milk Containing Products Allergy Unknown Verified 05/10/20 20:06 [Dairy] shellfish derived Allergy throat Verified 05/09/20 14:13 swelling dimenhydrinate AdvReac SEIZURES Verified 05/09/20 14:13 [From Dramamine] diphenhydramine AdvReac SEIZURES Verified 05/09/20 14:13 [From Benadryl] lorazepam [From Ativan] AdvReac Unknown Verified 05/09/20 14:13 steri strips Allergy Rash/Hives Uncoded 05/09/20 14:13 Review of Systems ROS Statement: Those systems with pertinent positive or pertinent negative responses have been documented in the HPI. ROS Other: All systems not noted in ROS Statement are negative. Past Medical History Past Medical History: Cancer, Deep Vein Thrombosis (DVT), GERD/Reflux, Hyperlipidemia, Hypertension, Seizure Disorder Additional Past Medical History / Comment(s): benign hand tremors, DVT leg 18 months ago, hx prostate cancer History of Any Multi-Drug Resistant Organisms: None Reported Past Surgical History: Orthopedic Surgery, Prostate Surgery Additional Past Surgical History / Comment(s): knee surg., robotic prostatectomy Past Anesthesia/Blood Transfusion Reactions: No Reported Reaction Past Psychological History: No Psychological Hx Reported Smoking Status: Never smoker Past Alcohol Use History: Daily Past Drug Use History: None Reported General Exam Limitations: no limitations General appearance: alert Eye exam: Present: scleral icterus ENT exam: Present: normal exam, mucous membranes moist Respiratory exam: Present: normal lung sounds bilaterally. Absent: respiratory distress, wheezes, rales, rhonchi, stridor Cardiovascular Exam: Present: regular rate, normal rhythm, normal heart sounds. Absent: systolic murmur, diastolic murmur, rubs, gallop, clicks GI/Abdominal exam: Present: soft, distended, other (positive fluid wave) Psychiatric exam: Present: normal affect, normal mood Skin exam: Present: other (ecchymosis lower abdomen, abrasions posterior b/l shoulders. severly jaundiced) Course Vital Signs 05/09/20 05/09/20 05/09/20 13:28 14:24 14:30 Temperature 98 F Pulse Rate 87 81 Respiratory 18 Rate Blood Pressure 114/75 127/90 O2 Sat by Pulse 99 98 98 Oximetry 05/09/20 05/09/20 05/09/20 14:40 14:50 15:00 Temperature Pulse Rate 77 79 78 Respiratory Rate Blood Pressure 99/72 104/68 104/68 O2 Sat by Pulse 98 98 97 Oximetry 05/09/20 05/09/20 05/09/20 15:10 15:20 15:30 Temperature Pulse Rate 76 75 74 Respiratory Rate Blood Pressure 98/68 103/64 103/64 O2 Sat by Pulse 99 97 97 Oximetry 05/09/20 05/09/20 05/09/20 15:40 15:50 16:00 Temperature Pulse Rate 82 Respiratory Rate Blood Pressure 101/64 111/77 111/77 O2 Sat by Pulse 98 98 98 Oximetry 05/09/20 05/09/20 05/09/20 16:10 16:20 16:30 Temperature Pulse Rate 81 80 82 Respiratory Rate Blood Pressure 109/70 106/68 106/68 O2 Sat by Pulse 97 98 98 Oximetry 05/09/20 05/09/20 05/09/20 16:40 16:50 17:00 Temperature Pulse Rate 86 Respiratory Rate Blood Pressure 102/66 102/66 102/66 O2 Sat by Pulse 98 Oximetry 05/09/20 05/09/20 17:10 19:02 Temperature 98.0 F Pulse Rate 90 97 Respiratory 16 Rate Blood Pressure 115/70 115/87 O2 Sat by Pulse 98 Oximetry EKG Findings - EKG Comments: EKG Findings:: EKG demonstrates normal sinus rhythm with a ventricular rate of 77. MA interval 152. QRS 96. QTC of 475. No acute ST segment elevations or depressions concerning for ischemic changes Medical Decision Making - Medical Decision Making Upon arrival the patient was placed into room 15. A thorough history and physical exam was performed. 12-lead EKG was obtained. PIV is established. Laboratory studies were conducted. They do demonstrates an INR 1.6. Creatinine 2.4. Total bilirubin 25.6. Conjugated bilirubin 18.4. Lipase 667. Urinalysis is positive for rare bacteria and few white blood cell clumps. Patient was sent for a CT was done and pelvis because of his multiple repetitive traumas dem onstrate no signs of dramatic injury. Moderate abdominal ascites fluid. Gallbladder ultrasound is performed which demonstrated no dilated ducts. Gallbladder was not seen. Some fluid in the right upper quadrant. CT of the patient's head demonstrates mild cerebral atrophy with no acute intracranial abnormality. The patient has no traumatic injuries he will be admitted to Dr. Yañez. Discussed the case with Dr. yañez who accepted admission. GI will be consulted. Patient was transferred to floor in stable condition - Lab Data Result diagrams: 05/10/20 05:27 05/10/20 11:44 Lab Results 05/09/20 05/09/20 05/09/20 Range/Units 14:28 14:28 14:28 WBC 11.4 H (3.8-10.6) k/uL RBC 3.00 L (4.30-5.90) m/uL Hgb 11.3 L (13.0-17.5) gm/dL Hct 35.0 L (39.0-53.0) % MCV 116.7 H (80.0-100.0) fL MCH 37.7 H (25.0-35.0) pg MCHC 32.3 (31.0-37.0) g/dL RDW 13.9 (11.5-15.5) % Plt Count 162 (150-450) k/uL Neutrophils % 83 % Lymphocytes % 9 % Monocytes % 7 % Eosinophils % 0 % Basophils % 0 % Neutrophils # 9.5 H (1.3-7.7) k/uL Lymphocytes # 1.0 (1.0-4.8) k/uL Monocytes # 0.9 (0-1.0) k/uL Eosinophils # 0.1 (0-0.7) k/uL Basophils # 0.0 (0-0.2) k/uL Manual Slide Review Performed Polychromasia Present Hypochromasia (manual) Present Macrocytosis Marked A Target Cells Present PT 15.9 H (9.0-12.0) sec INR 1.6 H (<1.2) APTT 27.4 (22.0-30.0) sec Sodium 136 L (137-145) mmol/L Potassium 4.3 (3.5-5.1) mmol/L Chloride 102 (98-107) mmol/L Carbon Dioxide 16 L (22-30) mmol/L Anion Gap 18 mmol/L BUN 18 (9-20) mg/dL Creatinine 2.40 H (0.66-1.25) mg/dL Est GFR (CKD-EPI)AfAm 33 (>60 ml/min/1.73 sqM) Est GFR (CKD-EPI)NonAf 29 (>60 ml/min/1.73 sqM) Glucose 100 H (74-99) mg/dL Plasma Lactic Acid Horace (0.7-2.0) mmol/L Calcium 8.7 (8.4-10.2) mg/dL Total Bilirubin 25.6 H* (0.2-1.3) mg/dL Conjugated Bilirubin 18.4 H (0.0-0.3) mg/dL Unconjugated Bilirubin 2.9 H (0.0-1.1) mg/dL Delta Bilirubin 4.3 H (0.0-0.2) mg/dL AST 123 H (17-59) U/L ALT 49 (4-49) U/L Alkaline Phosphatase 267 H (38-126) U/L Ammonia (<30) umol/L Creatine Kinase 131 (55-170) U/L Total Protein 6.3 (6.3-8.2) g/dL Albumin 3.4 L (3.5-5.0) g/dL Lipase 667 H (23-300) U/L Urine Color Urine Appearance (Clear) Urine pH (5.0-8.0) Ur Specific [place] (1.001-1.035) Urine Protein (Negative) Urine Glucose (UA) (Negative) Urine Ketones (Negative) Urine Blood (Negative) Urine Nitrite (Negative) Urine Bilirubin (Negative) Urine Urobilinogen (<2.0) mg/dL Ur Leukocyte Esterase (Negative) Urine RBC (0-5) /hpf Urine WBC (0-5) /hpf Urine WBC Clumps (None) /hpf Ur Squamous Epith Cells (0-4) /hpf Urine Bacteria (None) /hpf Hyaline Casts (0-2) /lpf Urine Mucus (None) /hpf Acetaminophen ug/mL 05/09/20 05/09/2020 Range/Units 14:28 14:28 17:10 WBC (3.8-10.6) k/uL RBC (4.30-5.90) m/uL Hgb (13.0-17.5) gm/dL Hct (39.0-53.0) % MCV (80.0-100.0) fL MCH (25.0-35.0) pg MCHC (31.0-37.0) g/dL RDW (11.5-15.5) % Plt Count (150-450) k/uL Neutrophils % % Lymphocytes % % Monocytes % % Eosinophils % % Basophils % % Neutrophils # (1.3-7.7) k/uL Lymphocytes # (1.0-4.8) k/uL Monocytes # (0-1.0) k/uL Eosinophils # (0-0.7) k/uL Basophils # (0-0.2) k/uL Manual Slide Review Polychromasia Hypochromasia (manual) Macrocytosis Target Cells PT (9.0-12.0) sec INR (<1.2) APTT (22.0-30.0) sec Sodium (137-145) mmol/L Potassium (3.5-5.1) mmol/L Chloride (98-107) mmol/L Carbon Dioxide (22-30) mmol/L Anion Gap mmol/L BUN (9-20) mg/dL Creatinine (0.66-1.25) mg/dL Est GFR (CKD-EPI)AfAm (>60 ml/min/1.73 sqM) Est GFR (CKD-EPI)NonAf (>60 ml/min/1.73 sqM) Glucose (74-99) mg/dL Plasma Lactic Acid Horace 1.8 (0.7-2.0) mmol/L Calcium (8.4-10.2) mg/dL Total Bilirubin (0.2-1.3) mg/dL Conjugated Bilirubin (0.0-0.3) mg/dL Unconjugated Bilirubin (0.0-1.1) mg/dL Delta Bilirubin (0.0-0.2) mg/dL AST (17-59) U/L ALT (4-49) U/L Alkaline Phosphatase (38-126) U/L Ammonia 17 (<30) umol/L Creatine Kinase (55-170) U/L Total Protein (6.3-8.2) g/dL Albumin (3.5-5.0) g/dL Lipase (23-300) U/L Urine Color Dark Brown Urine Appearance Cloudy (Clear) Urine pH 5.0 (5.0-8.0) Ur Specific [place] 1.019 (1.001-1.035) Urine Protein Trace H (Negative) Urine Glucose (UA) Trace H (Negative) Urine Ketones 1+ H (Negative) Urine Blood Trace H (Negative) Urine Nitrite Negative (Negative) Urine Bilirubin 4+ H (Negative) Urine Urobilinogen 3.0 (<2.0) mg/dL Ur Leukocyte Esterase Negative (Negative) Urine RBC 1 (0-5) /hpf Urine WBC 28 H (0-5) /hpf Urine WBC Clumps Few H (None) /hpf Ur Squamous Epith Cells 2 (0-4) /hpf Urine Bacteria Rare H (None) /hpf Hyaline Casts 44 H (0-2) /lpf Urine Mucus Rare H (None) /hpf Acetaminophen 12.7 ug/mL Disposition Clinical Impression: Jaundice, Fall, Hyperbilirubinemia Disposition: ADMITTED IP TO THIS [facility] Condition: Serious Is patient prescribed a controlled substance at d/c from ED?: No Decision to Admit Reason: Admit from EC Decision Date: 05/09/20 Decision Time: 18:01
[2020-05-09 16:05] LABS: Bilirubin, Delta 4.3 mg/dL (0.0-0.2); Total Bilirubin 25.6 mg/dL (0.2-1.3)
--- NOTE | 2020-05-09 17:14 | CT ---
EXAMINATION TYPE: CT brain cathryn camargo con DATE OF EXAM: 05/09/2020 COMPARISON: CT brain 10/07/2016 HISTORY: Multiple falls in the past week with possible injuries CT DLP: 1342.8 mGycm Automated exposure control for dose reduction was used. There is some cerebral cortical atrophy. There is no mass effect nor midline shift. There is no sign of intracranial hemorrhage. The calvarium is intact. Skull base is intact. There is normal aeration o f the mastoid sinuses. Cervical vertebra have normal alignment. Posterior elements are intact. There is spurring of the endp lates at C5-6 and C6-7. Facet joints are intact. There is no sign of any significant spinal stenosis. There is multilevel uncovertebral spurring and mild neural foraminal impingement. IMPRESSION: Spondylotic changes and uncovertebral spurring in the mid and lower cervical spine. No fracture. Mild cerebral atrophy. No acute intracranial abnormality. No change.
[2020-05-09 17:23] LABS: Appearance,Urine Cloudy (Clear); Bacteria,Urine Rare /hpf; Bilirubin,Urine 4+ (Negative); Blood,Urine Trace (Negative); Color,Urine Dark Brown; Glucose,Urine (UA) Trace (Negative); Hyaline Casts,Urine 44 /lpf (0-2); Ketones,Urine 1+ (Negative); Leukocyte Esterase,Urine Negative (Negative); Mucus,Urine Rare /hpf; Nitrite,Urine Negative (Negative); Protein,Urine Trace (Negative); RBC,Urine 1 /hpf (0-5); Specific Gravity,Urine 1.019 (1.001-1.035); Squamous Epithelial Cell,Urine 2 /hpf (0-4); WBC,Urine 28 /hpf (0-5)
--- NOTE | 2020-05-09 17:29 | CT ---
EXAMINATION TYPE: CT ChestAbdPelvis wo con DATE OF EXAM: 05/09/2020 COMPARISON: None HISTORY: Multiple falls in the past week with possible injuries CT DLP: 635.1 mGycm Automated exposure control for dose reduction was used. Images were obtained from the thoracic inlet to the floor the pelvis without contrast. There is some mild subsegmental atelectasis in the right lower lobe. Heart size is normal. There is c oronary artery calcification. There are no hilar masses. There is no mediastinal adenopathy. Thoracic aorta is intact. There is no evidence of aneurysm. There is fatty infiltration of the liver. Spleen is intact. Stomach is intact. There is no evidence o f pancreatic mass. There is mild to moderate abdominal ascites. Bladder distends smoothly. Kidneys chen ve normal size and contour. There is no hydronephrosis. There is no adrenal mass. There is no retrope ritoneal adenopathy. There is no evidence of free air. There is no inguinal hernia. I see no sign of a pelvic mass. There is no evidence of a bowel obstruction. Thoracic and lumbar vertebra have normal alignment. Posterior elements are intact. The bony pelvis is intact. Hip joints are intact. There is no evidence of hip dysplasia. Sternum is intact. The ribs ap pear intact. Shoulder joints appear intact. IMPRESSION: Fatty infiltration of the liver. Moderate abdominal ascites fluid. Fluid has density of 9 consistent with nonhemorrhagic ascites fluid. I do not see evidence for traumatic injury of the chest abdomen pe lvis.
[2020-05-09] MEDS ORDERED: cefTRIAXone IN SWFI 1,000 MG/10 ML SYRINGE IVP STA (17:46)
[2020-05-09] MEDS ORDERED: NALOXONE 0.4 MG/ML 1 ML VIAL IV PRN (18:01)
--- NOTE | 2020-05-09 18:17 | US ---
EXAMINATION TYPE: US gallbladder DATE OF EXAM: 05/09/2020 COMPARISON: CT, US CLINICAL HISTORY: elevated bili. Elevated bilirubin. EXAM MEASUREMENTS: Liver Length: 20.0 cm Gallbladder Wall: 0.46 cm CBD: Not seen Right Kidney: 13.1 x 6.1 x 6.2 cm Limited due to body habitus and gas. Pancreas: Not well seen. Liver: Limited. Increased attenuation. Appears coarse and to have an increased echogenicity. Measure s enlarged. Gallbladder: Limited visibility. Appears to be partially contracted, unable to clearly evaluate. Pos sible internal echoes. Wall measures thick, although gallbladder does appear to be contracted. Evidence for sonographic Dunham's sign: No CBD: Not seen. Right Kidney: Measures enlarged. Anechoic areas seen anterior to the liver measuring 7.0 x 3.5 x 1.2 cm and within the RUQ measuring : 3.1 x 2.1 x 1.9 cm. IMPRESSION: No dilated ducts. Gallbladder is not clearly seen. There is some fluid in the right upper quadrant. Could be ascites fluid. Gallbladder may be absent and should be correlated with the surgic al history. ascites fluid. Fatty infiltration of the liver.
[2020-05-09] MEDS: PANTOPRAZOLE 40 MG TABLET PO SCH (19:51)
[2020-05-09] MEDS: atenoloL 25 MG TAB PO SCH (19:51)
[2020-05-09] MEDS: levETIRAcetam 250 MG TAB PO SCH (19:52)
[2020-05-09] MEDS: SODIUM CHLORIDE 0.9% 1,000 ML IV SCH (19:52)
[2020-05-09] MEDS: RIVAROXABAN 20 MG TAB PO SCH (19:52)
[2020-05-10] MEDS: levETIRAcetam 250 MG TAB PO SCH ×4 (01:28→22:02)
[2020-05-10 06:22] LABS: Basophils % (A) 0 %; Eosinophils % (A) 0 %; HGB 9.5 gm/dL (13.0-17.5); Lymphocytes # (A) 0.9 k/uL (1.0-4.8); Lymphocytes % (A) 7 %; MCH 37.9 pg (25.0-35.0); MCHC 31.8 g/dL (31.0-37.0); Macrocytosis Marked; Mean Platelet Volume 8.8; Monocytes # (A) 0.8 k/uL (0-1.0); Monocytes % (A) 6 %; Neutrophils # (A) 11.5 k/uL (1.3-7.7); Neutrophils % (A) 87 %; Platelet Count 167 k/uL (150-450); RBC 2.52 m/uL (4.30-5.90); RDW 14.7 % (11.5-15.5); WBC 13.3 k/uL (3.8-10.6)
[2020-05-10 07:04] LABS: Target Cells Present
[2020-05-10 07:05] LABS: Anisocytosis (M) Present
[2020-05-10 07:06] LABS: Large Platelets Present
[2020-05-10] MEDS: PANTOPRAZOLE 40 MG TABLET PO SCH (09:00)
[2020-05-10] MEDS: atenoloL 25 MG TAB PO SCH (09:00)
[2020-05-10] MEDS: RIVAROXABAN 20 MG TAB PO SCH (09:00)
[2020-05-10] MEDS: SODIUM CHLORIDE 0.9% 1,000 ML IV SCH (09:01)
[2020-05-10 09:06] LABS: African American GFR (CKD) 33.5 (60.0-200.0); BUN/Creat Ratio 9.58 Ratio (12.00-20.00); Calcium 7.8 mg/dL (8.7-10.3); Non-African American GFR(CKD) 28.9 (60.0-200.0); Potassium 4.3 mmol/L (3.5-5.5)
[2020-05-10] MEDS ORDERED: SPIRONOLACTONE 25 MG TAB PO SCH (10:15)
[2020-05-10] MEDS: PRIMIDONE 25 MG TAB PO SCH ×3 (11:04→22:03)
[2020-05-10] MEDS: NIACIN TR 500 MG CAPLET PO SCH (11:04)
[2020-05-10] MEDS: diazePAM 5 MG TAB PO SCH ×3 (11:04→23:54)
[2020-05-10] MEDS: FENOFIBRATE 160 MG TAB PO SCH (11:04)
[2020-05-10 12:40] LABS: ALT 39 U/L (4-49); AST 100 U/L (17-59); African American GFR (CKD) 35 (>60 ml/min/1.73 sqM); Albumin 2.7 g/dL (3.5-5.0); Alkaline Phosphatase 221 U/L (38-126); Amylase 61 U/L (30-110); Anion Gap 16 mmol/L; Blood Urea Nitrogen 23 mg/dL (9-20); Calcium 8.3 mg/dL (8.4-10.2); Carbon Dioxide 15 mmol/L (22-30); Chloride 104 mmol/L (98-107); Globulin 2.7 g/dL; Glucose 88 mg/dL (74-99); Lipase 1119 U/L (23-300); Non-African American GFR(CKD) 30 (>60 ml/min/1.73 sqM); Potassium 4.1 mmol/L (3.5-5.1); Sodium 135 mmol/L (137-145); Total Protein 5.4 g/dL (6.3-8.2)
[2020-05-10 12:57] LABS: Total Bilirubin 26.5 mg/dL (0.2-1.3)
[2020-05-10 19:42] LABS: Hepatitis A Antibody IgM Non-Reactive (Non-Reactive); Hepatitis B Core IgM Non-Reactive (Non-Reactive); Hepatitis B Surface Antigen Non-Reactive (Non-Reactive); Hepatitis C IgG Antibody Non-Reactive (Non-Reactive)
--- NOTE | 2020-05-10 21:03 | CONS ---
CONSULTATION DATE OF DICTATION: 05/10/2020 The patient is a 59-year-old pleasant white male admitted to the hospital because of progressive jaundice and yellowish discoloration of skin for the last 2 weeks' duration. He also developed abdominal distention, was feeling weak and tired, then noticed some dark-colored urine. He was worried that he had some hematuria. While at home he was having some weakness and had a fall, injuring his right knee. He went to see Dr. Thompson yesterday, and because of the jaundice he was advised to go to the emergency room. Subsequently he was admitted to the hospital for further evaluation. In the hospital, labs revealed a bilirubin of 25 with mild elevation of ALT and AST. The patient has been drinking wine on a regular basis for several years; usually drinks one bottle of wine every day for the last several years. However, recently he has cut it down to 2 or 3 glasses on a daily basis. He does complain of some abdominal distention. He reports no nausea or vomiting. No rectal bleeding or melena. No recent weight loss. However, he continues to have some nausea and poor appetite. He denies any fever, chills or night sweats. PAST MEDICAL HISTORY: Past medical history is significant for alcohol abuse, gastroesophageal reflux disease, hypertension, hyperlipidemia, seizure disorder, DVT in the past, atrial fibrillation. PAST SURGICAL HISTORY: Prostate surgery, knee surgery. MEDICATIONS: Medications at home include Xarelto, vitamin B complex, niacin, omeprazole, Keppra, fish oil, vitamin D3. ALLERGIES: IV DYE, SHELLFISH, BENADRYL, ATIVAN. REVIEW OF SYSTEMS: CARDIOPULMONARY: No chest pain or shortness of breath. GENITOURINARY: No dysuria or hematuria. MUSCULOSKELETAL: Left knee pain after he sustained a fall. NEUROLOGY: Unremarkable. PSYCHIATRY: Unremarkable. ENT/VISION: Unremarkable. CONSTITUTIONAL: No recent weight loss. No fever, chills, night sweats. HEMATOLOGY: Unremarkable. PHYSICAL EXAMINATION: He appears comfortable. No apparent distress. Vital signs are stable. Blood pressure is 114/75, pulse rate 87, temperature 98. HEENT examination unremarkable. Conjunctivae pink. Sclerae deeply icteric. Oral cavity no lesions. NECK: No JVD or lymph node enlargement. CHEST: Clear to auscultation. HEART: Regular rate and rhythm. ABDOMEN: Slightly distended. Liver was palpable 3 cm below the right costal margin. Spleen was not palpable. There was some free fluid noted in the abdomen. EXTREMITIES: No pedal edema. There was injury to the left knee noted. NEUROLOGIC: Alert and oriented x3. No focal deficits. LABS: Labs done at the time of admission to the hospital showed WBC 11.4, hemoglobin 11.3, platelets 162. PT/INR 1.6. BUN 18, creatinine 2.40. T-bilirubin 25.6. AST and ALT are 123 and 49, respectively, alkaline phosphatase 267. Ammonia level was 17. Lipase 667. Today lipase is 1119. Bilirubin went up to 26.5. He did have a CT of the chest, abdomen and pelvis done that showed evidence of moderate amount of ascites, enlarged liver with fatty infiltration; no evidence of biliary ductal dilation. IMPRESSION: 1. This is a patient with history of moderate to heavy alcohol abuse for several years' duration who presented to the hospital with progressive jaundice, weakness, abdominal distention for the last 2 weeks' duration. Liver enzymes show bilirubin of 25 with mild elevation of AST over ALT, all of this consistent with acute alcoholic hepatitis superimposed on possible underlying chronic liver cirrhosis. 2. Mild ascites. 3. Moderate to heavy alcohol use of 20 years' duration. RECOMMENDATIONS: 1. Obtain hepatitis serologies for A, B and C. 2. Gentle diuresis. 3. Monitor BUN and creatinine closely. 4. Nephrology consultation. 5. Abstinence from alcohol. 6. I had a lengthy discussion with the patient as well as his regarding acute alcoholic hepatitis and guarded prognosis. He understands the importance of being abstinent from alcohol at this time. Will follow with you closely. Thank you for this consultation. MMODL / IJN: [id number] /
--- NOTE | 2020-05-10 21:09 | P.HPIM ---
History of Present Illness H&P Date: 05/10/20 Chief Complaint: Bloody urine History of presenting complaint: This is a pleasant 59-year-old patient who follows with Dr. Benjamin Thompson. Chronic stable medical conditions include prostate cancer with surgery, DVT 18 months ago which patient is on xarelto, seizure disorder, hypertension, hyperlipidemia, GERD. Patient's had tremors since the age of 42 and is predominantly present more when he is cautious about the same. On in the presence of other people. Several family members including his father grandfather uncle have had the same. Patient has history of alcoholism in the past. Has not been drinking close to three quarter bottle of wine per day. Over 2 weeks ago he was helping a friend in the boathouse and they couldn't open the dorsum the target into the window and he fell down hurting his knee at that time. 5 days ago he was started coming down the stairs awaiting some broken glass and fell down about 13 [address] He got some bruising in the suprapubic area. And has been noticing some blood in the urine. Decided to go down to his family doctor. Who decided to send him down to the ER. Denied any loss of consciousness with these episodes. Computed tomography scan workup in the ER did not show any trauma. Patient also notices basically jaundiced with a bilirubin about 25. Patient also been noticing abdominal distention. For last few weeks. No edema. Appetite has been okay. 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 . Drinks about three quarter bottle of wine a day. No smoking Physical examination: VITAL SIGNS: 98, 87, 18, 114/75, 99% room air GENERAL: [27.8, laying in bed, awake. EYES: Pupils equal. Conjunctiva pink tendernessl. HEENT: External appearance of nose and ears normal, oral cavity grossly normal. NECK: JVD not raised; masses not palpable. HEART: First and second heart sounds are normal; no edema. LUNGS: Respiratory rate normal; clear to auscultation. ABDOMEN: Soft, distended, with some bruising of the suprapubic area nontender, liver spleen not palpable, dullness to percussion in the flanks, no masses palpable. PSYCH: Alert and oriented x3; mood and affect anxious. NEUROLOGICAL: Cranial nerves grossly intact; no facial asymmetry, power and sensation grossly intact tremors noted. LYMPHATICS: No lymph nodes palpable in the axilla and neck INVESTIGATIONS, reviewed in the clinical context: White count 13.3 hemoglobin 9.5 platelets 167 potassium 4.3 bun 23 creatinine 2.4 total bilirubin 26.5 AST 100 ALT 39 albumin 2.7 lipase 1119 Hepatitis A IgM antibody negative, hepatitis B surface antigen, or IgM antibody, hepatitis C IgG antibody all nonreactive EKG tracing personally reviewed by me-normal sinus rhythm Gallbladder ultrasound-gallbladder not clearly seen. Acetic fluid. Fatty infiltration of liver. Computed tomography scan of the chest abdomen pelvis-some coronary artery calcification, fatty infiltration of the liver, moderate abdominal ascites, kidneys of normal size and contour, nonhemorrhagic ascites suspected. Assessment: And plan -Severe hyperbilirubinemia. Patient seems to underlying alcoholic liver disease. This extreme degree of hyperbilirubinemia not explained the present time. It is predominantly conjugated bilirubin. Suggestive of intrahepatic cholestasis. Hepatitis screen is negative. For A, B, and C. -Familiar tremor given that several family members have had the same.. Has had since age of 42. We'll start the patient on primidone. -Alcohol use disorder -Chronic DVT for which patient is on xarelto -GERD -Hyperlipidemia -Essential hypertension -Seizure disorder -Hematuria in the setting of liver disorder and patient being on xarelto. Stop xarelto probably is enough for this patient who is probably order anticoagulant because of liver disease. -Renal failure-acute versus chronic. Patient renal size appears to be non-of the computed tomography scan. Urine is showing some protein. Nephrology consulted. -Ascites likely from portal hypertension Additionally: Care was discussed with the patient. Questions answered. Past Medical History Past Medical History: Cancer, Deep Vein Thrombosis (DVT), GERD/Reflux, Hyperlipidemia, Hypertension, Seizure Disorder Additional Past Medical History / Comment(s): benign hand tremors, DVT leg 18 months ago, hx prostate cancer History of Any Multi-Drug Resistant Organisms: None Reported Past Surgical History: Orthopedic Surgery, Prostate Surgery Additional Past Surgical History / Comment(s): knee surg., robotic prostatectomy Past Anesthesia/Blood Transfusion Reactions: No Reported Reaction Past Psychological History: No Psychological Hx Reported Smoking Status: Never smoker Past Alcohol Use History: Daily Past Drug Use History: None Reported Medications and Allergies Home Medications Medication Instructions Recorded Confirmed Type Fenofibric Acid (Choline) 135 mg PO DAILY 05/25/14 05/09/20 History [Trilipix] Rivaroxaban [Xarelto] 20 mg PO DAILY 05/25/14 05/09/20 History Cholecalciferol [Vitamin D3 (25 2,000 unit PO DAILY 10/07/16 05/09/20 History Mcg = 1000 Iu)] Vitamin B Complex 1 cap PO DAILY 10/07/16 05/09/20 History atenoloL [Tenormin] 25 mg PO DAILY #30 tab 10/09/16 05/09/20 Rx Fish Oil/Dha/Epa [Fish Oil 1,200 1 cap PO DAILY 05/09/20 05/09/20 History mg Fish Oil] Niacin [Niacin ER] 1,000 mg PO DAILY 05/09/20 05/09/20 History Omeprazole 40 mg PO DAILY 05/09/20 05/09/20 History levETIRAcetam [Keppra] 250 mg PO TID 05/09/20 05/09/20 History Allergies Allergy/AdvReac Type Severity Reaction Status Date / Time Iodinated Contrast Media Allergy throat Verified 05/09/20 14:13 [Iodinated Contrast Media - swelling IV Dye] Milk Containing Products Allergy Unknown Verified 05/10/20 20:06 [Dairy] shellfish derived Allergy throat Verified 05/09/20 14:13 swelling dimenhydrinate AdvReac SEIZURES Verified 05/09/20 14:13 [From Dramamine] diphenhydramine AdvReac SEIZURES Verified 05/09/20 14:13 [From Benadryl] lorazepam [From Ativan] AdvReac Unknown Verified 05/09/20 14:13 steri strips Allergy Rash/Hives Uncoded 05/09/20 14:13 Physical Exam Vitals: Vital Signs Temp Pulse Pulse Resp BP BP Pulse Ox 05/10/20 04:53 98.9 F 87 16 102/66 96 05/10/20 00:00 96 18 05/09/20 19:40 98.4 F 98 18 102/63 98 05/09/20 19:02 98.0 F 97 16 115/87 98 05/09/20 17:10 90 115/70 05/09/20 17:00 86 102/66 98 05/09/20 16:50 102/66 05/09/20 16:40 102/66 05/09/20 16:30 82 106/68 98 05/09/20 16:20 80 106/68 98 05/09/20 16:10 81 109/70 97 05/09/20 16:00 111/77 98 05/09/20 15:50 82 111/77 98 05/09/20 15:40 101/64 98 05/09/20 15:30 74 103/64 97 05/09/20 15:20 75 103/64 97 05/09/20 15:10 76 98/68 99 05/09/20 15:00 78 104/68 97 05/09/20 14:50 79 104/68 98 05/09/20 14:40 77 99/72 98 05/09/20 14:30 81 127/90 98 05/09/20 14:24 98 05/09/20 13:28 98 F 87 18 114/75 99 Intake and Output 05/09/20 05/10/20 05/10/20 22:59 06:59 14:59 Intake Total 1020 Output Total 2 2 Balance 1020 -2 -2 Intake: Intake, IV Titration 300 Amount Sodium Chloride 0.9% 1, 300 000 ml @ 75 mls/hr IV . [id number] [facility] Rx#:[id number] Oral 720 Output: Stool 2 2 Other: Voiding Method Toilet # Voids 1 2 Weight 85.275 kg Results CBC & Chem 7: 05/10/20 05:27 05/10/20 11:44 Labs: Abnormal Lab Results - Last 24 Hours (Table) 05/09/20 05/09/20 05/09/20 Range/Units 14:28 14:28 14:28 WBC 11.4 H (3.8-10.6) k/uL RBC 3.00 L (4.30-5.90) m/uL Hgb 11.3 L (13.0-17.5) gm/dL Hct 35.0 L (39.0-53.0) % MCV 116.7 H (80.0-100.0) fL MCH 37.7 H (25.0-35.0) pg Neutrophils # 9.5 H (1.3-7.7) k/uL Lymphocytes # (1.0-4.8) k/uL Macrocytosis Marked A PT 15.9 H (9.0-12.0) sec INR 1.6 H (<1.2) Sodium 136 L (137-145) mmol/L Carbon Dioxide 16 L (22-30) mmol/L Anion Gap (4.00-12.00) mmol/L Creatinine 2.40 H (0.66-1.25) mg/dL Est GFR (CKD-EPI)AfAm (60.0-200.0) Est GFR (CKD-EPI)NonAf (60.0-200.0) BUN/Creatinine Ratio (12.00-20.00) Ratio Glucose 100 H (74-99) mg/dL Calcium (8.7-10.3) mg/dL Total Bilirubin 25.6 H* (0.2-1.3) mg/dL Conjugated Bilirubin 18.4 H (0.0-0.3) mg/dL Unconjugated Bilirubin 2.9 H (0.0-1.1) mg/dL Delta Bilirubin 4.3 H (0.0-0.2) mg/dL AST 123 H (17-59) U/L Alkaline Phosphatase 267 H (38-126) U/L Albumin 3.4 L (3.5-5.0) g/dL Lipase 667 H (23-300) U/L Urine Protein (Negative) Urine Glucose (UA) (Negative) Urine Ketones (Negative) Urine Blood (Negative) Urine Bilirubin (Negative) Urine WBC (0-5) /hpf Urine WBC Clumps (None) /hpf Urine Bacteria (None) /hpf Hyaline Casts (0-2) /lpf Urine Mucus (None) /hpf 05/09/20 05/10/20 05/10/20 Range/Units 17:10 05:27 05:27 WBC 13.3 H (3.8-10.6) k/uL RBC 2.52 L (4.30-5.90) m/uL Hgb 9.5 L D (13.0-17.5) gm/dL Hct 30.0 L (39.0-53.0) % MCV 119.0 H (80.0-100.0) fL MCH 37.9 H (25.0-35.0) pg Neutrophils # 11.5 H (1.3-7.7) k/uL Lymphocytes # 0.9 L (1.0-4.8) k/uL Macrocytosis Marked A PT (9.0-12.0) sec INR (<1.2) Sodium (137-145) mmol/L Carbon Dioxide 14.0 L (22-30) mmol/L Anion Gap 21.00 H (4.00-12.00) mmol/L Creatinine 2.4 H (0.66-1.25) mg/dL Est GFR (CKD-EPI)AfAm 33.5 L (60.0-200.0) Est GFR (CKD-EPI)NonAf 28.9 L (60.0-200.0) BUN/Creatinine Ratio 9.58 L (12.00-20.00) Ratio Glucose (74-99) mg/dL Calcium 7.8 L (8.7-10.3) mg/dL Total Bilirubin (0.2-1.3) mg/dL Conjugated Bilirubin (0.0-0.3) mg/dL Unconjugated Bilirubin (0.0-1.1) mg/dL Delta Bilirubin (0.0-0.2) mg/dL AST (17-59) U/L Alkaline Phosphatase (38-126) U/L Albumin (3.5-5.0) g/dL Lipase (23-300) U/L Urine Protein Trace H (Negative) Urine Glucose (UA) Trace H (Negative) Urine Ketones 1+ H (Negative) Urine Blood Trace H (Negative) Urine Bilirubin 4+ H (Negative) Urine WBC 28 H (0-5) /hpf Urine WBC Clumps Few H (None) /hpf Urine Bacteria Rare H (None) /hpf Hyaline Casts 44 H (0-2) /lpf Urine Mucus Rare H (None) /hpf Microbiology - Last 24 Hours (Table) 05/09/20 17:10 Urine Culture - Preliminary Urine,Voided Thrombosis Risk Factor Assmnt - Choose All That Apply Any of the Below Risk Factors Present?: Yes Each Factor Represents 1 point: Age 41-60 years, Obesity (BMI >25) Each Risk Factor Represents 3 Points: History of DVT/PE Thrombosis Risk Factor Assessment Total Risk Factor Score: 5 Thrombosis Risk Factor Assessment Level: High Risk
[2020-05-10] MEDS: METOPROLOL TARTRATE 25 MG TAB PO SCH (22:02)
[2020-05-11 05:00] LABS: Basophils % (A) 0 %; Eosinophils # (A) 0.2 k/uL (0-0.7); Eosinophils % (A) 1 %; HCT 32.7 % (39.0-53.0); HGB 10.7 gm/dL (13.0-17.5); Lymphocytes # (A) 0.9 k/uL (1.0-4.8); Lymphocytes % (A) 7 %; MCH 39.3 pg (25.0-35.0); MCHC 32.8 g/dL (31.0-37.0); Macrocytosis Marked; Mean Platelet Volume 8.6; Monocytes # (A) 0.7 k/uL (0-1.0); Monocytes % (A) 5 %; Neutrophils # (A) 10.7 k/uL (1.3-7.7); Neutrophils % (A) 85 %; Platelet Count 183 k/uL (150-450); RBC 2.73 m/uL (4.30-5.90); RDW 14.9 % (11.5-15.5); WBC 12.6 k/uL (3.8-10.6)
[2020-05-11 05:29] LABS: MCV 119.7 fL (80.0-100.0)
[2020-05-11] MEDS: diazePAM 5 MG TAB PO SCH ×2 (08:23→17:53)
[2020-05-11] MEDS: METOPROLOL TARTRATE 25 MG TAB PO SCH ×2 (08:24→21:55)
[2020-05-11] MEDS: levETIRAcetam 250 MG TAB PO SCH ×3 (08:24→21:55)
[2020-05-11] MEDS: NIACIN TR 500 MG CAPLET PO SCH (08:24)
[2020-05-11] MEDS: FENOFIBRATE 160 MG TAB PO SCH (08:24)
[2020-05-11] MEDS: PANTOPRAZOLE 40 MG TABLET PO SCH (08:25)
[2020-05-11] MEDS: PRIMIDONE 25 MG TAB PO SCH ×3 (08:25→21:55)
[2020-05-11 09:33] LABS: Alpha Fetoprotein, Tumor Mkr 4.6 ng/mL (0.0-7.9)
[2020-05-11 09:59] LABS: Ceruloplasmin 23.9 mg/dL (20.0-60.0)
[2020-05-11 10:01] LABS: Protein, Total 4.8 g/dL (6.2-8.2)
[2020-05-11 10:13] LABS: % Iron Saturation 56.61 (15.00-50.00); African American GFR (CKD) 50.8 (60.0-200.0); Albumin 2.9 g/dL (3.80-4.90); Albumin/Globulin Ratio 1.53 (1.60-3.17); Anion Gap 16.7 mmol/L (4.00-12.00); BUN/Creat Ratio 18.24 Ratio (12.00-20.00); Calcium 8.6 mg/dL (8.7-10.3); Carbon Dioxide 16.3 mmol/L (21.6-31.8); Globulin 1.9 g/dL (1.6-3.3); Potassium 3.8 mmol/L (3.5-5.5); Total Protein 4.8 g/dL (6.2-8.2)
[2020-05-11 11:08] LABS: Non-African American GFR(CKD) 43.8 (60.0-200.0)
--- NOTE | 2020-05-11 11:46 | CONS ---
CONSULTATION DATE OF DICTATION: May 11, 2020 Patient is a 59-year-old pleasant white male admitted to the hospital with acute alcoholic hepatitis superimposed on alcoholic cirrhosis of the liver and mild ascites. He is feeling better today. No abdominal pain. Appetite is still poor. No nausea, no vomiting. No rectal bleeding or melena. PHYSICAL EXAMINATION: Blood pressure 107/69, pulse is 78, temperature 97.9. HEENT examination unremarkable. Conjunctivae pink. Sclerae deeply icteric. Oral cavity no lesions. NECK: No JVD. No lymph node enlargement. CHEST: Clear to auscultation. HEART: Regular rate and rhythm. ABDOMEN: Soft, slightly distended. It was tympanic. Free fluid noted. EXTREMITIES: No pedal edema. NEURO: He is alert and oriented x3. No focal deficits. LABS: From today WBC 12.6, hemoglobin 10.7, platelets normal. Basic metabolic panel is within normal limits. BUN is 31, creatinine 1.7. Total bilirubin is 31.8, AST 102, ALT 43, alkaline phosphatase 240. Hepatitis serologies for A, B and C are negative. TATO is negative. IMPRESSION: 1. Severe acute alcoholic hepatitis superimposed on alcoholic cirrhosis of the liver with portal hypertension. Bilirubin today is 31. 2. Macrocytic anemia secondary to underlying liver disease. 3. Mild coagulopathy from underlying liver disease. 4. Mild ascites. 5. Elevated BUN and creatinine, probably acute kidney injury, rule out Hepatorenal syndrome. RECOMMENDATIONS: 1. Continue with symptomatic and supportive care. 2. Gentle diuresis. 3. Monitor LFTs closely. 4. Avoid hepatotoxic medications. 5. Abstinence from alcohol. 6. Await recommendations from Nephrology. 7. We will continue to follow him closely. Thank you for this consultation. MMODL / IJN: [id number] /
--- NOTE | 2020-05-11 16:38 | P.GSCN ---
History of Present Illness Consult date: 05/11/20 Reason for Consult: Gross Hematuria History of present illness: Mr St is a 59-year-old male admitted to the hospital for jaundice and g ross hematuria. Urology is counsulted for gross hematuria. He indicated his hematuria has resolved since admission. Denies any previous hx of gross hematuria. Denies any hx of dysuria or kidney stones. He underwent a CT abdomen and pelvis that showed no upper tract pathology. Denies any voiding issues at baseline, no family hx of malignancy He does take [place], therefore he stopped taking this medication. On Wednesday he was hanging out with a friend attempting to look at bowl when he fell through the [place]. He fell and twisted his right knee and has been having some pain. Reports that he woke up at 3 AM on Wednesday with pain in the right knee. He attempted to go down the basement stairs to get some Tylenol and ended up falling down 13 [address]ed steps. He did hit his head. Unsure if he lost consciousness. reports that he was immediately responsive so she does not think that he lost consciousness. had an appointment yesterday with Dr. Thompson. Patient went with her and Dr. Thompson was concerned about his jaundice. He did order laboratory studies. He followed up today for his laboratory studies. They noted that his bilirubins were 25 and had an increase in his AST. He has a history of alcohol abuse. Patient reports to drinking 2 glasses of wine per day. Dr. Thompson is concerned about abdominal trauma with this fall. He has a large ecchymotic area across his anterior abdomen. He then recommended that he come into the emergency department for evaluatio Review of Systems - Constitutional Denies chills, Denies fever - Respiratory Denies cough - Genitourinary Reports hematuria, Denies dysuria, Denies flank pain, Denies kidney stones - Neurological Denies headaches, Denies syncope Past Medical History Past Medical History: Cancer, Deep Vein Thrombosis (DVT), GERD/Reflux, Hyperlipidemia, Hypertension, Seizure Disorder Additional Past Medical History / Comment(s): benign hand tremors, DVT leg 18 months ago, hx prostate cancer History of Any Multi-Drug Resistant Organisms: None Reported Past Surgical History: Orthopedic Surgery, Prostate Surgery Additional Past Surgical History / Comment(s): knee surg., robotic prostatectomy Past Anesthesia/Blood Transfusion Reactions: No Reported Reaction Past Psychological History: No Psychological Hx Reported Smoking Status: Never smoker Past Alcohol Use History: Daily Past Drug Use History: None Reported Medications and Allergies Home Medications Medication Instructions Recorded Confirmed Type Fenofibric Acid (Choline) 135 mg PO DAILY 05/25/14 05/09/20 History [Trilipix] Rivaroxaban [Xarelto] 20 mg PO DAILY 05/25/14 05/09/20 History Cholecalciferol [Vitamin D3 (25 2,000 unit PO DAILY 10/07/16 05/09/20 History Mcg = 1000 Iu)] Vitamin B Complex 1 cap PO DAILY 10/07/16 05/09/20 History atenoloL [Tenormin] 25 mg PO DAILY #30 tab 10/09/16 05/09/20 Rx Fish Oil/Dha/Epa [Fish Oil 1,200 1 cap PO DAILY 05/09/20 05/09/20 History mg Fish Oil] Niacin [Niacin ER] 1,000 mg PO DAILY 05/09/20 05/09/20 History Omeprazole 40 mg PO DAILY 05/09/20 05/09/20 History levETIRAcetam [Keppra] 250 mg PO TID 05/09/20 05/09/20 History Allergies Allergy/AdvReac Type Severity Reaction Status Date / Time Iodinated Contrast Media Allergy throat Verified 05/09/20 14:13 [Iodinated Contrast Media - swelling IV Dye] Milk Containing Products Allergy Unknown Verified 05/10/20 20:06 [Dairy] shellfish derived Allergy throat Verified 05/09/20 14:13 swelling dimenhydrinate AdvReac SEIZURES Verified 05/09/20 14:13 [From Dramamine] diphenhydramine AdvReac SEIZURES Verified 05/09/20 14:13 [From Benadryl] lorazepam [From Ativan] AdvReac Unknown Verified 05/09/20 14:13 steri strips Allergy Rash/Hives Uncoded 05/09/20 14:13 Surgical - Exam Vital Signs Temp Pulse Resp BP Pulse Ox 98 F 87 18 114/75 99 05/09/20 13:28 05/09/20 13:28 05/09/20 13:28 05/09/20 13:28 05/09/20 13:28 - General no distress, no pain - Respiratory normal expansion, normal respiratory effort - Abdomen Abdomen: soft, non tender - Neurologic normal sensation, no confused - Psychiatric oriented to time, oriented to person, oriented to place Results - Labs 05/11/20 04:28 05/11/20 04:28 Abnormal Lab Results - Last 24 Hours (Table) 05/11/20 05/11/20 05/11/20 Range/Units 04:28 04:28 04:28 WBC 12.6 H (3.8-10.6) k/uL RBC 2.73 L (4.30-5.90) m/uL Hgb 10.7 L (13.0-17.5) gm/dL Hct 32.7 L (39.0-53.0) % MCV 119.7 H (80.0-100.0) fL MCH 39.3 H (25.0-35.0) pg Neutrophils # 10.7 H (1.3-7.7) k/uL Lymphocytes # 0.9 L (1.0-4.8) k/uL Macrocytosis Marked A Carbon Dioxide 16.3 L (21.6-31.8) mmol/L Anion Gap 16.70 H (4.00-12.00) mmol/L BUN 31.0 H (9.0-27.0) mg/dL Creatinine 1.7 H (0.6-1.5) mg/dL Est GFR (CKD-EPI)AfAm 50.8 L (60.0-200.0) Est GFR (CKD-EPI)NonAf 43.8 L (60.0-200.0) Calcium 8.6 L (8.7-10.3) mg/dL TIBC 189 L (228-460) ug/dL % Saturation 56.61 H (15.00-50.00) Ferritin 1740.0 H (22.0-322.0) ng/mL Total Bilirubin 31.8 H* (0.2-1.2) mg/dL AST 102 H (14-35) U/L Alkaline Phosphatase 240 H (41-126) U/L Ammonia (<30) umol/L Total Protein 4.8 L (6.2-8.2) g/dL Total Protein (PEP) 4.8 L (6.2-8.2) g/dL Albumin 2.90 L (3.80-4.90) g/dL Albumin/Globulin Ratio 1.53 L (1.60-3.17) g/dL Lipase 238 H (14-60) U/L 05/11/20 Range/Units 04:28 WBC (3.8-10.6) k/uL RBC (4.30-5.90) m/uL Hgb (13.0-17.5) gm/dL Hct (39.0-53.0) % MCV (80.0-100.0) fL MCH (25.0-35.0) pg Neutrophils # (1.3-7.7) k/uL Lymphocytes # (1.0-4.8) k/uL Macrocytosis Carbon Dioxide (21.6-31.8) mmol/L Anion Gap (4.00-12.00) mmol/L BUN (9.0-27.0) mg/dL Creatinine (0.6-1.5) mg/dL Est GFR (CKD-EPI)AfAm (60.0-200.0) Est GFR (CKD-EPI)NonAf (60.0-200.0) Calcium (8.7-10.3) mg/dL TIBC (228-460) ug/dL % Saturation (15.00-50.00) Ferritin (22.0-322.0) ng/mL Total Bilirubin (0.2-1.2) mg/dL AST (14-35) U/L Alkaline Phosphatase (41-126) U/L Ammonia 33 H (<30) umol/L Total Protein (6.2-8.2) g/dL Total Protein (PEP) (6.2-8.2) g/dL Albumin (3.80-4.90) g/dL Albumin/Globulin Ratio (1.60-3.17) g/dL Lipase (14-60) U/L Microbiology - Last 24 Hours (Table) 05/09/20 17:10 Urine Culture - Final Urine,Voided Diabetes panel 05/11/20 Range/Units 04:28 Sodium 135 (135-145) mmol/L Potassium 3.8 (3.5-5.5) mmol/L Chloride 102 (96-109) mmol/L Carbon Dioxide 16.3 L (21.6-31.8) mmol/L BUN 31.0 H (9.0-27.0) mg/dL Creatinine 1.7 H (0.6-1.5) mg/dL Glucose 95 (70-110) mg/dL Calcium 8.6 L (8.7-10.3) mg/dL AST 102 H (14-35) U/L ALT 43 (10-49) U/L Alkaline Phosphatase 240 H (41-126) U/L Total Protein 4.8 L (6.2-8.2) g/dL Albumin 2.90 L (3.80-4.90) g/dL Calcium panel 05/11/20 Range/Units 04:28 Calcium 8.6 L (8.7-10.3) mg/dL Albumin 2.90 L (3.80-4.90) g/dL Pituitary panel 05/11/20 Range/Units 04:28 Sodium 135 (135-145) mmol/L Potassium 3.8 (3.5-5.5) mmol/L Chloride 102 (96-109) mmol/L Carbon Dioxide 16.3 L (21.6-31.8) mmol/L BUN 31.0 H (9.0-27.0) mg/dL Creatinine 1.7 H (0.6-1.5) mg/dL Glucose 95 (70-110) mg/dL Calcium 8.6 L (8.7-10.3) mg/dL Adrenal panel 05/11/20 Range/Units 04:28 Sodium 135 (135-145) mmol/L Potassium 3.8 (3.5-5.5) mmol/L Chloride 102 (96-109) mmol/L Carbon Dioxide 16.3 L (21.6-31.8) mmol/L BUN 31.0 H (9.0-27.0) mg/dL Creatinine 1.7 H (0.6-1.5) mg/dL Glucose 95 (70-110) mg/dL Calcium 8.6 L (8.7-10.3) mg/dL Total Bilirubin 31.8 H* (0.2-1.2) mg/dL AST 102 H (14-35) U/L ALT 43 (10-49) U/L Alkaline Phosphatase 240 H (41-126) U/L Total Protein 4.8 L (6.2-8.2) g/dL Albumin 2.90 L (3.80-4.90) g/dL Assessment and Plan Assessment: 59 yo male admitted to the hospital with Jaundice and gross hematuria. Hematuria resolved now. CT abdomen and pelvis showed no upper tract pathology -Will need cystoscopy as an outpatient to complete hemturia workup
--- NOTE | 2020-05-11 17:13 | XR ---
EXAMINATION TYPE: XR chest 1V DATE OF EXAM: 05/11/2020 CLINICAL HISTORY: Difficulty breathing, possible CHF. TECHNIQUE: Single AP portable upright view of the chest is obtained. COMPARISON: Chest x-ray from November 11, 2012. CT chest 2 days ago. FINDINGS: Persistent low lung volumes. Lungs remain clear without new focal airspace opacity or pleu ral effusion. Cardiac silhouette size stable and within normal limits. Osseous structures are intact. IMPRESSION: Overall stable findings, low lung volumes without new suspicious acute pulmonary proces s.
--- NOTE | 2020-05-11 19:46 | CONS ---
CONSULTATION REASON FOR CONSULT: Renal failure. HISTORY OF PRESENT ILLNESS: Patient is a 59-year-old male who was admitted to the hospital with complaints of increasing abdominal distention, increased weakness and he was told that his urine was quite dark and the patient was also told that his skin was discolored. The patient had recently sustained a fall as well on admission. Patient was noted to have a bilirubin of 25. He denies any prior history of kidney disease. The patient's serum creatinine was 2.4 and it is down to 1.7 today. Previous creatinine on in September of 2016 was 0.79. Blood pressure is on the lower side with systolic around 107-104 mmHg. The patient is voiding on his own. He is currently not on any IV fluids, although patient did receive IV fluids after initial admission. PAST MEDICAL HISTORY: History of DVT, gastroesophageal reflux disease, hyperlipidemia, seizure disorder, hypertension, history of prostatic cancer status post prostatectomy. SOCIAL HISTORY: Negative for smoking, drug abuse or alcohol abuse. MEDICATIONS: Medications prior to admission included Trilipix, Xarelto, Tenormin, fish oil, niacin, Keppra. ALLERGIES: IV DYE, SHELLFISH DRAMAMINE, BENADRYL, ATIVAN, STERI-STRIPS CAUSE RASH AND HIVES. EXAMINATION: Patient is comfortable, awake. He is not in any acute distress. He is deeply jaundiced. Blood pressure is 104/70, heart rate 81 per minute, he is afebrile. Examination of the heart S1, S2. Examination of the lungs, bilateral breath sounds are heard. Abdomen is soft, nontender. Examination of lower extremities shows no significant edema. FUR DRUMMER exam grossly intact. LAB: Show sodium of 135, potassium 3.8, chloride 102, BUN 31, creatinine 1.7, CO2 is 16.3, calcium 8.6, iron saturation about 56, total bilirubin 31.8. UA shows 4+ bilirubin, 1+ ketones, protein, trace blood, trace WBCs 28. ASSESSMENT: 1. Acute kidney injury, appears to be prerenal, improved post IV fluids which were given on initial admission. There is also a component of acute tubular necrosis from the severe hyperbilirubinemia. The patient is currently nonoliguric. CT scan done on admission does not show any evidence of hydronephrosis. 2. Severe hyperbilirubinemia associated with chronic liver disease, being followed by GI. Tumor markers are negative. 3. Metabolic acidosis associated with renal failure. No diarrhea noted at this time, mostly anion gap. PLAN: Continue off IV fluids. Add oral sodium bicarb. Encourage increased oral intake. Avoid use of NSAIDs. Repeat labs in a.m. Monitor urine output to rule out urine retention. We can check a bladder scan, however, this may be inaccurate secondary to ascites. Add oral sodium bicarb. Close followup with GI. Thank you for this consultation. We will continue to follow the patient with you during his hospitalization. MMODL / IJN: [id number] /
[2020-05-11] MEDS ORDERED: diazePAM 5 MG TAB PO STA (21:47)
--- NOTE | 2020-05-11 21:53 | P.PN ---
Progress Note - Text Progress Note Date: 05/11/20 Chief Complaint: Bloody urine History of presenting complaint: This is a pleasant 59-year-old patient who follows with Dr. Benjamin Thompson. Chronic stable medical conditions include prostate cancer with surgery, DVT 18 months ago which patient is on xarelto, seizure disorder, hypertension, hyperlipidemia, GERD. Patient's had tremors since the age of 42 and is predominantly present more when he is cautious about the same. On in the presence of other people. Several family members including his father grandfather uncle have had the same. Patient has history of alcoholism in the past. Has not been drinking close to three quarter bottle of wine per day. Over 2 weeks ago he was helping a friend in the boathouse and they couldn't open the dorsum the target into the window and he fell down hurting his knee at that time. 5 days ago he was started coming down the stairs awaiting some broken glass and fell down about 13 [address]. He got some bruising in the suprapubic area. And has been noticing some blood in the urine. Decided to go down to his family doctor. Who decided to send him down to the ER. Denied any loss of consciousness with these episodes. Computed tomography scan workup in the ER did not show any trauma. Patient also notices basically jaundiced with a bilirubin about 25. Patient also been noticing abdominal distention. For last few weeks. No edema. Appetite has been okay. Patient admitted with severe hyperbilirubinemia, acute kidney injury versus chronic, uncontrolled familiar tremors. Started on primidone. [place] to have acute alcoholic hepatitis on alcoholic cirrhosis. Today-tremors are much improved. Feeling better. Late in the evening patient started having hallucinations. Extra dose of Valium was given. Patient's is present in the morning. Review of systems: Was done for constitutional, cardiovascular, GI, pulmonary. relevant finding as above Active Medications Diazepam (Diazepam 5 Mg Tab) 2.[address] [facility] Last Admin: 05/11/20 17:53 Dose: 2.5 mg Documented by: Diazepam (Diazepam 5 Mg Tab) 5 mg PO ONCE STA Stop: 05/11/20 21:48 Fenofibrate (Fenofibrate 160 Mg Tab) [address] [facility] Last Admin: 05/11/20 08:24 Dose: 160 mg Documented by: Levetiracetam (Levetiracetam 250 Mg Tab) [address] [facility] Last Admin: 05/11/20 17:53 Dose: 250 mg Documented by: Metoprolol Tartrate (Metoprolol Tartrate 25 Mg Tab) [address] [facility] Last Admin: 05/11/20 08:24 Dose: 25 mg Documented by: Naloxone HCl (Naloxone 0.4 Mg/Ml 1 Ml Vial) 0.2 mg IV Q2M PRN PRN Reason: Opioid Reversal Niacin (Niacin Tr 500 Mg Caplet) 1,[address] [facility] Last Admin: 05/11/20 08:24 Dose: 1,000 mg Documented by: Pantoprazole Sodium (Pantoprazole 40 Mg Tablet) [address] [facility] Last Admin: 05/11/20 08:25 Dose: 40 mg Documented by: Primidone (Primidone 25 Mg Tab) [address] [facility] Last Admin: 05/11/20 17:54 Dose: 25 mg Documented by: Sodium Bicarbonate (Sodium Bicarbonate Tab 650 Mg Tab) [address] [facility] Physical examination: VITAL SIGNS: 98.1, 81, 18, 104/70, 97% room air GENERAL: Sitting up, comfortable EYES: Pupils equal. Conjunctiva pink tendernessl. HEENT: External appearance of nose and ears normal, oral cavity grossly normal. NECK: JVD not raised; masses not palpable. HEART: First and second heart sounds are normal; no edema. LUNGS: Respiratory rate normal; clear to auscultation. ABDOMEN: Soft, distended, with some bruising of the suprapubic area nontender, liver spleen not palpable, dullness to percussion in the flanks, no masses palpable. PSYCH: Alert and oriented x3; mood and affect anxious. NEUROLOGICAL: Cranial nerves grossly intact; no facial asymmetry, power and sensation grossly intact-tremors improved. INVESTIGATIONS, reviewed in the clinical context: White count 12.6 hemoglobin 10.7 potassium 3.8 creatinine 1.7 White count 13.3 hemoglobin 9.5 platelets 167 potassium 4.3 bun 23 creatinine 2.4 total bilirubin 26.5 AST 100 ALT 39 albumin 2.7 lipase 1119 Hepatitis A IgM antibody negative, hepatitis B surface antigen, or IgM antibody, hepatitis C IgG antibody all nonreactive EKG tracing personally reviewed by me-normal sinus rhythm Gallbladder ultrasound-gallbladder not clearly seen. Acetic fluid. Fatty infiltration of liver. Computed tomography scan of the chest abdomen pelvis-some coronary artery calcification, fatty infiltration of the liver, moderate abdominal ascites, kidneys of normal size and contour, nonhemorrhagic ascites suspected. Assessment: And plan -Severe hyperbilirubinemia. Patient seems to underlying alcoholic liver disease. This extreme degree of hyperbilirubinemia not explained the present time. It is predominantly conjugated bilirubin. Suggestive of intrahepatic cholestasis. Hepatitis screen is negative. For A, B, and C. -Delirium tremors patient started hallucinating this evening. -Alcoholic cirrhosis -Familiar tremor given that several family members have had the same.. Has had since age of 42. Responded well to primidone. -Alcohol use disorder -Chronic DVT for which patient is on xarelto -GERD -Hyperlipidemia -Essential hypertension -Seizure disorder -Hematuria in the setting of liver disorder and patient being on xarelto. Stop xarelto probably is enough for this patient who is probably order anticoagulant because of liver disease. -Renal failure-acute versus chronic. Patient renal size appears to be non-of the computed tomography scan. Urine is showing some protein. Nephrology consulted. -Ascites likely from portal hypertension Plan: Patient this evening given an extra dose of Valium 5 mg. Increase to 7.5 every 8. Continue with primidone. It was discussed at length with the patient and . Alcohol abstinence was again discussed. Aldactone be started when liver function is better.
[2020-05-11] MEDS: SODIUM BICARBONATE TAB 650 MG TAB PO SCH (21:55)
[2020-05-12] MEDS ORDERED: diazePAM 5 MG TAB PO SCH ×2 (06:00→14:00)
[2020-05-12] MEDS: PANTOPRAZOLE 40 MG TABLET PO SCH (08:21)
[2020-05-12] MEDS: FENOFIBRATE 160 MG TAB PO SCH (08:21)
[2020-05-12] MEDS: SODIUM BICARBONATE TAB 650 MG TAB PO SCH ×2 (08:21→21:12)
[2020-05-12] MEDS: METOPROLOL TARTRATE 25 MG TAB PO SCH ×2 (08:21→21:11)
[2020-05-12] MEDS: levETIRAcetam 250 MG TAB PO SCH ×3 (08:22→21:12)
[2020-05-12] MEDS: NIACIN TR 500 MG CAPLET PO SCH (08:22)
[2020-05-12] MEDS: PRIMIDONE 25 MG TAB PO SCH ×3 (08:22→21:12)
[2020-05-12 10:14] LABS: African American GFR (CKD) 54.6 (60.0-200.0); Albumin 3.3 g/dL (3.80-4.90); Albumin/Globulin Ratio 1.65 (1.60-3.17); Anion Gap 13.6 mmol/L (4.00-12.00); BUN/Creat Ratio 21.25 Ratio (12.00-20.00); Carbon Dioxide 19.4 mmol/L (21.6-31.8); Potassium 3.4 mmol/L (3.5-5.5); Total Protein 5.3 g/dL (6.2-8.2)
[2020-05-12 10:57] LABS: Non-African American GFR(CKD) 47.1 (60.0-200.0)
--- NOTE | 2020-05-12 12:19 | PN ---
PROGRESS NOTE DATE OF SERVICE: May 12, 2020 The patient is a 59-year-old pleasant white male admitted to hospital with severe acute alcoholic hepatitis. He apparently became extremely agitated last night with possible alcohol withdrawal and was given some Valium and this morning he is sleeping. His is at the bedside. According to his , no acute events this morning. He has been quite sleepy. He had breakfast this morning and tolerated well. He was not complaining of any abdominal pain. No nausea, no vomiting. PHYSICAL EXAMINATION: He is sleeping. Vital signs show blood pressure of 132/66, pulse rate is 78. Temperature 99. HEENT examination unremarkable. Conjunctivae pink. Sclerae deeply icteric. Oral cavity no lesions. NECK no JVD or lymph node enlargement. CHEST was clear to auscultation. HEART: Regular rate and rhythm. ABDOMEN is slightly distended but it was nontender. Some free fluid noted. EXTREMITIES: No pedal edema. NEURO: He is very sleepy. LABS: From today are still pending at the time of this dictation. IMPRESSION: 1. Severe acute alcoholic hepatitis superimposed on alcoholic cirrhosis of the liver with gradually worsening total bilirubin. Bilirubin yesterday was 31 and today is still pending. Serum transaminases are slightly elevated. is more than 32 indicating guarded prognosis. 2. Mild ascites. 3. Alcohol withdrawal for which patient has received Valium this morning and quite sedated. 4. History of heavy alcohol use. 5. Mild elevation of BUN, creatinine, possible acute kidney injury, rule out hepatorenal syndrome. RECOMMENDATIONS: 1. Monitor labs closely. 2. Continue treatment for acute alcohol withdrawal. 3. Abstinence from alcohol. 4. Avoid hepatotoxic medications. 5. Monitor electrolytes closely. 6. I had a lengthy discussion with the patient's who is at the bedside regarding guarded prognosis and at this time we will continue with symptomatic and supportive care and monitor labs on a close basis. 7. Obtain ammonia level tomorrow morning. Thank you for this consultation. MMODL / IJN: [id number] /
--- NOTE | 2020-05-12 13:04 | PN ---
PROGRESS NOTE Patient is seen for followup for acute kidney injury mostly ATN associated with some degree of hypoperfusion hypotension. The patient's renal function has improved. He is currently not on any IV fluids. He was started on sodium bicarb yesterday for metabolic acidosis. Blood pressure remains around 105-106 mmHg systolic. Serum creatinine is down to 1.6 from peak of 2.4 on initial admission. Previous creatinine 0.79 in 2017. The patient's bilirubin has been significantly elevated. Today it is at 40.1. Therefore there is definitely a component of acute tubular necrosis from hyperbilirubinemia. EXAMINATION: Today patient is comfortable, awake. He is sitting out of bed. He is eating. Blood pressure is 107/69, heart rate 80 per minute. He is afebrile. Examination of the heart S1, S2. Examination of the lungs, bilateral breath sounds are heard. ABDOMEN: Soft, distended with ascites. Exam of lower extremities shows edema 2+ bilaterally. CATTLE FARMER exam grossly intact. LABS: Show sodium 134, potassium 3.4, chloride 101. CO2 is 19.4, BUN 34, serum creatinine 1.6. Bilirubin is 40.1. ASSESSMENT: 1. Acute kidney injury, nonoliguric secondary to hypotension hypoperfusion as well as component of acute tubular necrosis from severe hyperbilirubinemia. Renal function is improving. Continue off IV fluids. We can add Aldactone and if renal function continues to improve, we can add low-dose loop diuretics down the road. 2. Anion gap metabolic acidosis associated with renal failure, maintained on sodium bicarb. No significant diarrhea noted as GI fluid loss will also contribute to the metabolic acidosis. 3. Chronic liver disease with severe hyperbilirubinemia, portal hypertension, recurrent ascites, being followed by GI. PLAN: Continue off IV fluids. Add Aldactone. If renal function continues to improve, we can add low-dose loop diuretics. Increase oral intake. MMODL / IJN: [id number] /
[2020-05-12] MEDS: diazePAM 5 MG TAB PO SCH ×2 (15:51→23:46)
--- NOTE | 2020-05-12 20:38 | P.PN ---
Progress Note - Text Progress Note Date: 05/12/20 Chief Complaint: Bloody urine History of presenting complaint: This is a pleasant 59-year-old patient who follows with Dr. Benjamin Thompson. Chronic stable medical conditions include prostate cancer with surgery, DVT 18 months ago which patient is on xarelto, seizure disorder, hypertension, hyperlipidemia, GERD. Patient's had tremors since the age of 42 and is predominantly present more when he is cautious about the same. On in the presence of other people. Several family members including his father grandfather uncle have had the same. Patient has history of alcoholism in the past. Has not been drinking close to three quarter bottle of wine per day. Over 2 weeks ago he was helping a friend in the boathouse and they couldn't open the dorsum the target into the window and he fell down hurting his knee at that time. 5 days ago he was started coming down the stairs awaiting some broken glass and fell down about 13 [address] He got some bruising in the suprapubic area. And has been noticing some blood in the urine. Decided to go down to his family doctor. Who decided to send him down to the ER. Denied any loss of consciousness with these episodes. Computed tomography scan workup in the ER did not show any trauma. Patient also notices basically jaundiced with a bilirubin about 25. Patient also been noticing abdominal distention. For last few weeks. No edema. Appetite has been okay. Patient admitted with severe hyperbilirubinemia, acute kidney injury versus chronic, uncontrolled familiar tremors. Started on primidone. [place] to have acute alcoholic hepatitis on alcoholic cirrhosis. Tremors did respond well to primidone. Patient developed DTs with hallucinations. Dose of Valium increased. Today-hallucinations improved this morning. Though tired. On Valium. Review of systems: Was done for constitutional, cardiovascular, GI, pulmonary. relevant finding as above Active Medications Diazepam (Diazepam 5 Mg Tab) 5 mg PO Q8HR [facility] Last Admin: 05/12/20 15:51 Dose: 5 mg Documented by: Fenofibrate (Fenofibrate 160 Mg Tab) 160 mg PO DAILY [facility] Last Admin: 05/12/20 08:21 Dose: 160 mg Documented by: Levetiracetam (Levetiracetam 250 Mg Tab) 250 mg PO TID [facility] Last Admin: 05/12/20 15:51 Dose: 250 mg Documented by: Metoprolol Tartrate (Metoprolol Tartrate 25 Mg Tab) 25 mg PO BID [facility] Last Admin: 05/12/20 08:21 Dose: 25 mg Documented by: Naloxone HCl (Naloxone 0.4 Mg/Ml 1 Ml Vial) 0.2 mg IV Q2M PRN PRN Reason: Opioid Reversal Niacin (Niacin Tr 500 Mg Caplet) 1,000 mg PO DAILY [facility] Last Admin: 05/12/20 08:22 Dose: 1,000 mg Documented by: Pantoprazole Sodium (Pantoprazole 40 Mg Tablet) 40 mg PO DAILY [facility] Last Admin: 05/12/20 08:21 Dose: 40 mg Documented by: Primidone (Primidone 25 Mg Tab) 25 mg PO TID [facility] Last Admin: 05/12/20 15:51 Dose: 25 mg Documented by: Sodium Bicarbonate (Sodium Bicarbonate Tab 650 Mg Tab) 650 mg PO BID [facility] Last Admin: 05/12/20 08:21 Dose: 650 mg Documented by: Spironolactone (Spironolactone 25 Mg Tab) 25 mg PO DAILY [facility] Physical examination: VITAL SIGNS: 98.3, 80, 18, 100 [id number], 99% room air GENERAL: Laying in bed, sleepy but arousable EYES: Pupils equal. Conjunctiva yellow HEENT: External appearance of nose and ears normal, oral cavity grossly normal. NECK: JVD not raised; masses not palpable. HEART: First and second heart sounds are normal; no edema. LUNGS: Respiratory rate normal; clear to auscultation. ABDOMEN: Soft, distended, with some bruising of the suprapubic area nontender, liver spleen not palpable, dullness to percussion in the flanks, no masses palpable. PSYCH: Sleepy but arousable. NEUROLOGICAL: Cranial nerves grossly intact; no facial asymmetry, power and sensation grossly intact-tremors improved. INVESTIGATIONS, reviewed in the clinical context: Potassium 3.4 creatinine 1.6 Previous testing White count 13.3 hemoglobin 9.5 platelets 167 potassium 4.3 bun 23 creatinine 2.4 total bilirubin 26.5 AST 100 ALT 39 albumin 2.7 lipase 1119 Hepatitis A IgM antibody negative, hepatitis B surface antigen, or IgM antibody, hepatitis C IgG antibody all nonreactive EKG tracing personally reviewed by me-normal sinus rhythm Gallbladder ultrasound-gallbladder not clearly seen. Acetic fluid. Fatty infiltration of liver. Computed tomography scan of the chest abdomen pelvis-some coronary artery calcification, fatty infiltration of the liver, moderate abdominal ascites, kidneys of normal size and contour, nonhemorrhagic ascites suspected. Assessment: And plan -Severe hyperbilirubinemia. Patient seems to underlying alcoholic liver disease. This extreme degree of hyperbilirubinemia not explained the present time. It is predominantly conjugated bilirubin. Suggestive of intrahepatic cholestasis. Hepatitis screen is negative. For A, B, and C. 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 Has had since age of 42. Responded well to primidone. -Alcohol use disorder -Chronic DVT for which patient is on xarelto -GERD -Hyperlipidemia -Essential hypertension -Seizure disorder -Hematuria in the setting of liver disorder and patient being on xarelto. Stop xarelto probably is enough for this patient who is probably order anticoagulant because of liver disease. Outpatient cystoscopy by Dr. lombardo -Acute kidney injury likely hepatorenal with ATN from hypotension. Patient renal size appears to be non-of the computed tomography scan. Urine is showing some protein. -Ascites likely from portal hypertension Plan: We'll cut back the dose of Valium to 5 mg every 8. Aldactone is being started by nephrology. SHAI freeman
[2020-05-13 03:56] LABS: Basophils # (A) 0.1 k/uL (0-0.2); Basophils % (A) 0 %; Eosinophils # (A) 0.5 k/uL (0-0.7); Eosinophils % (A) 3 %; HCT 35.5 % (39.0-53.0); HGB 11.4 gm/dL (13.0-17.5); Lymphocytes # (A) 1.2 k/uL (1.0-4.8); Lymphocytes % (A) 7 %; MCH 38.4 pg (25.0-35.0); MCHC 32.2 g/dL (31.0-37.0); Macrocytosis Marked; Mean Platelet Volume 8.7; Monocytes # (A) 1.2 k/uL (0-1.0); Monocytes % (A) 6 %; Neutrophils # (A) 15.5 k/uL (1.3-7.7); Neutrophils % (A) 84 %; Platelet Count 203 k/uL (150-450); RBC 2.97 m/uL (4.30-5.90); RDW 15.4 % (11.5-15.5); WBC 18.6 k/uL (3.8-10.6)
[2020-05-13 04:03] LABS: MCV 119.4 fL (80.0-100.0)
[2020-05-13 04:18] LABS: INR 2.1 (<1.2); Prothrombin Time 20.5 sec (9.0-12.0)
[2020-05-13] MEDS: METOPROLOL TARTRATE 25 MG TAB PO SCH ×2 (07:37→20:26)
[2020-05-13] MEDS: NIACIN TR 500 MG CAPLET PO SCH (07:37)
[2020-05-13] MEDS: SODIUM BICARBONATE TAB 650 MG TAB PO SCH ×2 (07:38→20:26)
[2020-05-13] MEDS: levETIRAcetam 250 MG TAB PO SCH ×3 (07:38→20:26)
[2020-05-13] MEDS: diazePAM 5 MG TAB PO SCH ×3 (07:38→23:26)
[2020-05-13] MEDS: PANTOPRAZOLE 40 MG TABLET PO SCH (07:38)
[2020-05-13] MEDS ORDERED: SPIRONOLACTONE 25 MG TAB PO SCH (09:00)
[2020-05-13] MEDS: PRIMIDONE 25 MG TAB PO SCH ×3 (09:46→20:26)
[2020-05-13] MEDS ORDERED: PHYTONADIONE ORAL 5 MG/5 ML ORAL.SYRG PO STA (09:51)
[2020-05-13 10:13] LABS: African American GFR (CKD) 54.6 (60.0-200.0); Albumin/Globulin Ratio 1.5 (1.60-3.17); Anion Gap 14.1 mmol/L (4.00-12.00); Calcium 8.7 mg/dL (8.7-10.3); Carbon Dioxide 18.9 mmol/L (21.6-31.8); Non-African American GFR(CKD) 47.1 (60.0-200.0); Potassium 3.3 mmol/L (3.5-5.5)
[2020-05-13] MEDS ORDERED: POTASSIUM CHLORIDE ER 20 MEQ TAB.ER PO STA (10:36)
[2020-05-13] MEDS: LACTULOSE 20 GM/30 ML CUP PO SCH ×3 (10:37→20:27)
[2020-05-13 10:43] LABS: Total Bilirubin 31.8 mg/dL (0.2-1.2)
--- NOTE | 2020-05-13 10:52 | US ---
EXAMINATION TYPE: US abdomen limited DATE OF EXAM: 05/13/2020 COMPARISON: US 05/09/2020 CLINICAL HISTORY: 59-year-old male assess for fluid pocket please. Ascites TECHNIQUE: Ultrasound examination of the 4 abdominal quadrants for assessment of ascites fluid. FINDINGS: Plastic Surgery Assistant notes: Mild amount of ascites visualized IMPRESSION: Mild abdominal ascites, similar to 05/09/2020.
[2020-05-13 11:06] LABS: Total Bilirubin 40.1 mg/dL (0.2-1.2)
--- NOTE | 2020-05-13 13:30 | P.PN ---
Subjective patient is seen in follow-up for acute kidney injury. Renal function stable. Good urine output. Oral intake fair. No vomiting or diarrhea. Vital signs are stable. General: The patient appeared well nourished and normally developed. HEENT: Head exam is unremarkable. Neck is without jugular venous distension. LUNGS: Lungs are clear to auscultation and percussion. Breath sounds decreased. HEART: Rate and Rhythm are regular. ABDOMEN: soft, nontender. Mildly distended. EXTREMITITES: trace edema. Objective - Vital Signs Vital signs: Vital Signs Temp 97.8 F 05/13/20 11:52 Pulse 67 05/13/20 11:52 Resp 16 05/13/20 11:52 BP 110/71 05/13/20 11:52 Pulse Ox 99 05/13/20 11:52 Intake & Output 05/12/20 05/13/20 05/13/20 18:59 06:59 18:59 Intake Total 360 Output Total 3 Balance 357 Intake: Oral 360 Output: Stool 3 Other: Voiding Method Toilet Toilet # Voids 3 2 # Bowel Movements 1 - Labs CBC & Chem 7: 05/13/20 03:13 05/13/20 03:13 Labs: Abnormal Lab Results - Last 24 Hours (Table) 05/11/20 05/12/20 05/13/20 Range/Units 04:28 03:49 03:13 WBC 18.6 H (3.8-10.6) k/uL RBC 2.97 L (4.30-5.90) m/uL Hgb 11.4 L (13.0-17.5) gm/dL Hct 35.5 L (39.0-53.0) % MCV 119.4 H (80.0-100.0) fL MCH 38.4 H (25.0-35.0) pg Neutrophils # 15.5 H (1.3-7.7) k/uL Monocytes # 1.2 H (0-1.0) k/uL Macrocytosis Marked A PT (9.0-12.0) sec INR (<1.2) Potassium (3.5-5.5) mmol/L Carbon Dioxide (21.6-31.8) mmol/L Anion Gap (4.00-12.00) mmol/L BUN (9.0-27.0) mg/dL Creatinine (0.6-1.5) mg/dL Est GFR (CKD-EPI)AfAm (60.0-200.0) Est GFR (CKD-EPI)NonAf (60.0-200.0) Total Bilirubin 31.8 H* 40.1 H* (0.2-1.2) mg/dL AST (14-35) U/L Alkaline Phosphatase (41-126) U/L Ammonia (<30) umol/L Total Protein (6.2-8.2) g/dL Albumin (3.80-4.90) g/dL Albumin/Globulin Ratio (1.60-3.17) g/dL 05/13/20 05/13/20 05/13/20 Range/Units 03:13 03:13 03:13 WBC (3.8-10.6) k/uL RBC (4.30-5.90) m/uL Hgb (13.0-17.5) gm/dL Hct (39.0-53.0) % MCV (80.0-100.0) fL MCH (25.0-35.0) pg Neutrophils # (1.3-7.7) k/uL Monocytes # (0-1.0) k/uL Macrocytosis PT 20.5 H (9.0-12.0) sec INR 2.1 H (<1.2) Potassium 3.3 L (3.5-5.5) mmol/L Carbon Dioxide 18.9 L (21.6-31.8) mmol/L Anion Gap 14.10 H (4.00-12.00) mmol/L BUN 32.0 H (9.0-27.0) mg/dL Creatinine 1.6 H (0.6-1.5) mg/dL Est GFR (CKD-EPI)AfAm 54.6 L (60.0-200.0) Est GFR (CKD-EPI)NonAf 47.1 L (60.0-200.0) Total Bilirubin 38.7 H* (0.2-1.2) mg/dL AST 76 H (14-35) U/L Alkaline Phosphatase 224 H (41-126) U/L Ammonia 39 H (<30) umol/L Total Protein 5.0 L (6.2-8.2) g/dL Albumin 3.00 L (3.80-4.90) g/dL Albumin/Globulin Ratio 1.50 L (1.60-3.17) g/dL Assessment and Plan Plan: assessment: 1. 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 renal function stable. 2. Hypokalemia secondary to diuresis. 3. metabolic acidosis secondary to acute kidney injury. 4. Chronic liver disease with severe hyperbilirubinemia. GI following. plan: Increase Aldactone to 25 mg twice daily. Replace potassium. 40 mg once today. avoid nephrotoxins. Repeat electrolytes in the morning.
[2020-05-13 13:49] LABS: Liver/Kidney Microsome Antibod 1.1 UNITS (<=20)
[2020-05-13 15:11] LABS: Total Bilirubin 38.7 mg/dL (0.2-1.2)
--- NOTE | 2020-05-13 15:28 | P.PN ---
Subjective Progress Note Date: 05/13/20 Principal diagnosis: Jaundice This is a 52-year-old male admitted to the hospital with severe acute alcoholic hepatitis. Over the weekend he became very agitated going through alcohol withdrawals requiring Valium. He had no acute changes through the night. He is on a low-sodium diet, tolerating well. He states he is feeling his best today. He denies any abdominal pain, nausea, or vomiting. He states he had 5-6 loose bowel movements yesterday. He is alert and oriented 3. Objective - Vital Signs Vital signs: Vital Signs Temp 97.8 F 05/13/20 11:52 Pulse 67 05/13/20 11:52 Resp 16 05/13/20 11:52 BP 110/71 05/13/20 11:52 Pulse Ox 99 05/13/20 11:52 Intake & Output 05/12/20 05/13/20 05/13/20 18:59 06:59 18:59 Intake Total 360 Output Total 3 Balance 357 Intake: Oral 360 Output: Stool 3 Other: Voiding Method Toilet Toilet # Voids 3 2 # Bowel Movements 1 2 - Exam General appearance: The patient is alert, oriented, in no acute distress. HET: Head is normocephalic and atraumatic. Conjunctiva pink. Sclera icteric. Neck: Supple without lymphadenopathy. Trachea midline. Heart: S1 S2. Regular rate and rhythm. Lungs: No crackles or wheezes are heard. Abdomen: Soft, nontender, mild distention with bowel sounds. No palpable organomegaly. Extremities: No pedal edema. Skin: Very jaundiced. Neurological: No focal deficits. Sluggish. Alert and oriented 3. - Labs CBC & Chem 7: 05/13/20 03:13 05/13/20 03:13 Labs: Abnormal Lab Results - Last 24 Hours (Table) 05/11/20 05/12/20 05/13/20 Range/Units 04:28 03:49 03:13 WBC 18.6 H (3.8-10.6) k/uL RBC 2.97 L (4.30-5.90) m/uL Hgb 11.4 L (13.0-17.5) gm/dL Hct 35.5 L (39.0-53.0) % MCV 119.4 H (80.0-100.0) fL MCH 38.4 H (25.0-35.0) pg Neutrophils # 15.5 H (1.3-7.7) k/uL Monocytes # 1.2 H (0-1.0) k/uL Macrocytosis Marked A PT (9.0-12.0) sec INR (<1.2) Potassium (3.5-5.5) mmol/L Carbon Dioxide (21.6-31.8) mmol/L Anion Gap (4.00-12.00) mmol/L BUN (9.0-27.0) mg/dL Creatinine (0.6-1.5) mg/dL Est GFR (CKD-EPI)AfAm (60.0-200.0) Est GFR (CKD-EPI)NonAf (60.0-200.0) Total Bilirubin 31.8 H* 40.1 H* (0.2-1.2) mg/dL AST (14-35) U/L Alkaline Phosphatase (41-126) U/L Ammonia (<30) umol/L Total Protein (6.2-8.2) g/dL Albumin (3.80-4.90) g/dL Albumin/Globulin Ratio (1.60-3.17) g/dL 05/13/20 05/13/20 05/13/20 Range/Units 03:13 03:13 03:13 WBC (3.8-10.6) k/uL RBC (4.30-5.90) m/uL Hgb (13.0-17.5) gm/dL Hct (39.0-53.0) % MCV (80.0-100.0) fL MCH (25.0-35.0) pg Neutrophils # (1.3-7.7) k/uL Monocytes # (0-1.0) k/uL Macrocytosis PT 20.5 H (9.0-12.0) sec INR 2.1 H (<1.2) Potassium 3.3 L (3.5-5.5) mmol/L Carbon Dioxide 18.9 L (21.6-31.8) mmol/L Anion Gap 14.10 H (4.00-12.00) mmol/L BUN 32.0 H (9.0-27.0) mg/dL Creatinine 1.6 H (0.6-1.5) mg/dL Est GFR (CKD-EPI)AfAm 54.6 L (60.0-200.0) Est GFR (CKD-EPI)NonAf 47.1 L (60.0-200.0) Total Bilirubin 38.7 H* (0.2-1.2) mg/dL AST 76 H (14-35) U/L Alkaline Phosphatase 224 H (41-126) U/L Ammonia 39 H (<30) umol/L Total Protein 5.0 L (6.2-8.2) g/dL Albumin 3.00 L (3.80-4.90) g/dL Albumin/Globulin Ratio 1.50 L (1.60-3.17) g/dL Assessment and Plan (1) Hepatitis, alcoholic, acute Narrative/Plan: Severe acute alcoholic hepatitis superimposed on alcoholic cirrhosis of the liver with gradual worsening of total bilirubin. Today's total bilirubin is slightly better and 38.7. Serum transaminases are mildly elevated. Current Visit: Yes Status: Acute Code(s): K70.10 - ALCOHOLIC HEPATITIS WITHOUT ASCITES SNOMED Code(s): 2065823 (2) Jaundice Current Visit: Yes Status: Acute Code(s): R17 - UNSPECIFIED JAUNDICE SNOMED Code(s): 09416283 (3) Ascites of liver Current Visit: Yes Status: Acute Code(s): R18.8 - OTHER ASCITES SNOMED Code(s): 844612219 Plan: 1. Monitor labs closely, daily ammonia 2. Continue treatment for acute alcohol withdrawal 3. Abstinence from alcohol 4. Avoid hepatotoxic medications 5. Monitor electrolytes closely 6. Ultrasound for paracentesis ordered, scant amount of fluid unable obtain fluid studies 7. Start lactulose 30 g TID, Xifaxan 550 mg BID 8. Aldactone increased to 25 mg twice a day 9. Low sodium restricted diet 10. Appreciate recommendations from nephrology Thank you for this consultation we'll continue to follow you closely. The impression and plan of care has been dictated as directed. I performed a history and examination of this patient, discussed the same with the dictator. I agree with the dictator's note ,documented as a scribe. Any additional findings or plans will be noted.
--- NOTE | 2020-05-13 16:57 | P.PN ---
Progress Note - Text Progress Note Date: 05/13/20 Chief Complaint: Bloody urine History of presenting complaint: This is a pleasant 59-year-old patient who follows with Dr. Benjamin Thompson. Chronic stable medical conditions include prostate cancer with surgery, DVT 18 months ago which patient is on xarelto, seizure disorder, hypertension, hyperlipidemia, GERD. Patient's had tremors since the age of 42 and is predominantly present more when he is cautious about the same. On in the presence of other people. Several family members including his father grandfather uncle have had the same. Patient has history of alcoholism in the past. Has not been drinking close to three quarter bottle of wine per day. Over 2 weeks ago he was helping a friend in the boathouse and they couldn't open the dorsum the target into the window and he fell down hurting his knee at that time. 5 days ago he was started coming down the stairs awaiting some broken glass and fell down about [address] He got some bruising in the suprapubic area. And has been noticing some blood in the urine. Decided to go down to his family doctor. Who decided to send him down to the ER. Denied any loss of consciousness with these episodes. Computed tomography scan workup in the ER did not show any trauma. Patient also notices basically jaundiced with a bilirubin about 25. Patient also been noticing abdominal distention. For last few weeks. No edema. Appetite has been okay. Patient admitted with severe hyperbilirubinemia, acute kidney injury versus chronic, uncontrolled familiar tremors. Started on primidone. [place] to have acute alcoholic hepatitis on alcoholic cirrhosis. Tremors did respond well to primidone. Patient developed DTs with hallucinations. Dose of Valium increased. Responded well. Because of Valium cutback. Today-patient doing better. DTs improving. Because of Valium cutback. Lactulose started by GI. Review of systems: Was done for constitutional, cardiovascular, GI, pulmonary. relevant finding as above Active Medications Diazepam (Diazepam 5 Mg Tab) 2.5 mg PO Q8H [facility] Last Admin: 05/13/20 16:04 Dose: 2.5 mg Documented by: Lactulose (Lactulose 20 Gm/30 Ml Cup) 30 gm PO TID [facility] Last Admin: 05/13/20 16:04 Dose: 30 gm Documented by: Levetiracetam (Levetiracetam 250 Mg Tab) 250 mg PO TID [facility] Last Admin: 05/13/20 16:04 Dose: 250 mg Documented by: Metoprolol Tartrate (Metoprolol Tartrate 25 Mg Tab) 25 mg PO BID [facility] Last Admin: 05/13/20 07:37 Dose: 25 mg Documented by: Naloxone HCl (Naloxone 0.4 Mg/Ml 1 Ml Vial) 0.2 mg IV Q2M PRN PRN Reason: Opioid Reversal Niacin (Niacin Tr 500 Mg Caplet) 1,000 mg PO DAILY [facility] Last Admin: 05/13/20 07:37 Dose: 1,000 mg Documented by: Pantoprazole Sodium (Pantoprazole 40 Mg Tablet) 40 mg PO DAILY [facility] Last Admin: 05/13/20 07:38 Dose: 40 mg Documented by: Primidone (Primidone 25 Mg Tab) 25 mg PO TID [facility] Last Admin: 05/13/20 16:06 Dose: 25 mg Documented by: Rifaximin (Rifaximin 550 Mg Tablet) 550 mg PO BID [facility] Stop: 06/12/20 21:01 Sodium Bicarbonate (Sodium Bicarbonate Tab 650 Mg Tab) 650 mg PO BID [facility] Last Admin: 05/13/20 07:38 Dose: 650 mg Documented by: Spironolactone (Spironolactone 25 Mg Tab) 25 mg PO BID [facility] Physical examination: VITAL SIGNS: 97.8, 67, 16, 110/71, 99% room air GENERAL: Laying in bed, sleepy but arousable EYES: Pupils equal. Conjunctiva yellow HEENT: External appearance of nose and ears normal, oral cavity grossly normal. NECK: JVD not raised; masses not palpable. HEART: First and second heart sounds are normal; no edema. LUNGS: Respiratory rate normal; clear to auscultation. ABDOMEN: Soft, distended, with some bruising of the suprapubic area nontender, liver spleen not palpable, dullness to percussion in the flanks, no masses palpable. PSYCH: Answering questions NEUROLOGICAL: Cranial nerves grossly intact; no facial asymmetry, power and sensation grossly intact-tremors improved. INVESTIGATIONS, reviewed in the clinical context: White count 8.6 hemoglobin 11.4 platelets 203 INR 2.1 potassium 3.3 creatinine 1.6 Previous testing White count 13.3 hemoglobin 9.5 platelets 167 potassium 4.3 bun 23 creatinine 2.4 total bilirubin 26.5 AST 100 ALT 39 albumin 2.7 lipase 1119 Hepatitis A IgM antibody negative, hepatitis B surface antigen, or IgM antibody, hepatitis C IgG antibody all nonreactive EKG tracing personally reviewed by me-normal sinus rhythm Gallbladder ultrasound-gallbladder not clearly seen. Acetic fluid. Fatty infiltration of liver. Computed tomography scan of the chest abdomen pelvis-some coronary artery calcification, fatty infiltration of the liver, moderate abdominal ascites, kidneys of normal size and contour, nonhemorrhagic ascites suspected. Assessment: And plan -Severe hyperbilirubinemia. Suggestive of intrahepatic cholestasis. Hepatitis screen is negative. For A, B, and C. 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 Has had since age of 42. Responded well to primidone. -Alcohol use disorder -Chronic DVT for which patient is on xarelto -GERD -Hyperlipidemia -Essential hypertension -Seizure disorder -Hematuria in the setting of liver disorder and patient being on xarelto. Stop xarelto probably is enough for this patient who is probably order anticoagulant because of liver disease. Outpatient cystoscopy by Dr. lombardo -Acute kidney injury likely hepatorenal with ATN from hypotension. Patient renal size appears to be non-of the computed tomography scan. Urine is showing some protein. -Ascites likely from portal hypertension Plan: Cutback dose of Valium to 2.5 every 8. Lactulose added by GI. Follow labs closely. Also started on Xifaxan. Fall precautions to continue.
[2020-05-13] MEDS: RIFAXIMIN 550 MG TABLET PO SCH (20:26)
[2020-05-13] MEDS: SPIRONOLACTONE 25 MG TAB PO SCH (20:27)
[2020-05-14 05:10] LABS: Basophils # (A) 0.1 k/uL (0-0.2); Basophils % (A) 1 %; Eosinophils # (A) 0.5 k/uL (0-0.7); Eosinophils % (A) 3 %; HCT 34.2 % (39.0-53.0); HGB 11.2 gm/dL (13.0-17.5); Lymphocytes % (A) 6 %; MCH 38.8 pg (25.0-35.0); MCHC 32.8 g/dL (31.0-37.0); Macrocytosis Marked; Mean Platelet Volume 9.1; Monocytes # (A) 1.2 k/uL (0-1.0); Monocytes % (A) 7 %; Neutrophils # (A) 13.7 k/uL (1.3-7.7); Neutrophils % (A) 82 %; Platelet Count 196 k/uL (150-450); RBC 2.89 m/uL (4.30-5.90); WBC 16.7 k/uL (3.8-10.6)
[2020-05-14 05:32] LABS: MCV 118.4 fL (80.0-100.0)
[2020-05-14] MEDS: METOPROLOL TARTRATE 25 MG TAB PO SCH ×2 (07:23→22:04)
[2020-05-14] MEDS: diazePAM 5 MG TAB PO SCH (07:23)
[2020-05-14] MEDS: PANTOPRAZOLE 40 MG TABLET PO SCH (07:23)
[2020-05-14] MEDS: SODIUM BICARBONATE TAB 650 MG TAB PO SCH ×2 (07:24→21:29)
[2020-05-14] MEDS: PRIMIDONE 25 MG TAB PO SCH ×3 (07:24→21:28)
[2020-05-14] MEDS: levETIRAcetam 250 MG TAB PO SCH ×3 (07:24→21:26)
[2020-05-14] MEDS: SPIRONOLACTONE 25 MG TAB PO SCH ×2 (07:24→21:29)
[2020-05-14] MEDS: RIFAXIMIN 550 MG TABLET PO SCH ×2 (07:25→21:28)
[2020-05-14] MEDS: LACTULOSE 20 GM/30 ML CUP PO SCH ×3 (07:25→21:29)
[2020-05-14] MEDS: NIACIN TR 500 MG CAPLET PO SCH (07:25)
[2020-05-14 09:09] LABS: INR 1.84 (0.90-1.11); Prothrombin Time 19.2 sec (9.9-11.9)
[2020-05-14 09:30] LABS: Albumin 2.84 g/dL (3.80-4.90); Gamma Globulin 0.62 g/dL (0.70-1.50)
--- NOTE | 2020-05-14 10:29 | P.PN ---
Subjective patient is seen in follow-up for acute kidney injury. Renal function stable assessment yesterday. Good urine output. Oral intake fair. No vomiting or diarrhea. Vital signs are stable. General: The patient appeared well nourished and normally developed. HEENT: Head exam is unremarkable. Neck is without jugular venous distension. LUNGS: Lungs are clear to auscultation and percussion. Breath sounds decreased. HEART: Rate and Rhythm are regular. ABDOMEN: soft, nontender. Mildly distended. EXTREMITITES: trace edema. Objective - Vital Signs Vital signs: Vital Signs Temp 98.1 F 05/14/20 05:00 Pulse 70 05/14/20 05:00 Resp 16 05/14/20 05:00 BP 102/64 05/14/20 05:00 Pulse Ox 98 05/14/20 05:00 Intake & Output 05/13/20 05/14/20 05/14/20 18:59 06:59 18:59 Intake Total 0 Output Total 2 1 Balance -2 -1 Intake: Oral 0 Output: Stool 2 1 Other: Voiding Method Toilet Toilet # Voids 2 # Bowel Movements 2 0 - Labs CBC & Chem 7: 05/14/20 04:55 05/13/20 03:13 Labs: Abnormal Lab Results - Last 24 Hours (Table) 05/11/20 05/11/20 05/12/20 Range/Units 04:28 04:28 03:49 WBC (3.8-10.6) k/uL RBC (4.30-5.90) m/uL Hgb (13.0-17.5) gm/dL Hct (39.0-53.0) % MCV (80.0-100.0) fL MCH (25.0-35.0) pg Neutrophils # (1.3-7.7) k/uL Monocytes # (0-1.0) k/uL Macrocytosis PT (9.9-11.9) sec INR (0.90-1.11) Total Bilirubin 31.8 H* 40.1 H* (0.2-1.2) mg/dL Albumin (PEP) 2.84 L (3.80-4.90) g/dL [id number] 0.51 L (0.60-1.00) g/dL Beta Globulins 0.50 L (0.60-1.30) g/dL Gamma Globulins 0.62 L (0.70-1.50) g/dL 05/13/20 05/14/20 05/14/20 Range/Units 03:13 04:55 04:55 WBC 16.7 H (3.8-10.6) k/uL RBC 2.89 L (4.30-5.90) m/uL Hgb 11.2 L (13.0-17.5) gm/dL Hct 34.2 L (39.0-53.0) % MCV 118.4 H (80.0-100.0) fL MCH 38.8 H (25.0-35.0) pg Neutrophils # 13.7 H (1.3-7.7) k/uL Monocytes # 1.2 H (0-1.0) k/uL Macrocytosis Marked A PT 19.2 H (9.9-11.9) sec INR 1.84 H (0.90-1.11) Total Bilirubin 38.7 H* (0.2-1.2) mg/dL Albumin (PEP) (3.80-4.90) g/dL Slrxq-5-Sznhmvbea (0.60-1.00) g/dL Beta Globulins (0.60-1.30) g/dL Gamma Globulins (0.70-1.50) g/dL Assessment and Plan Plan: assessment: 1. 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 renal function stable. creatinine 1.6 as of yesterday. 2. Hypokalemia secondary to diuresis. replaced. 3. metabolic acidosis secondary to acute kidney injury. 4. Chronic liver disease with severe hyperbilirubinemia. GI following. plan: continue Aldactone 25 mg twice daily. add Lasix 20 mg once daily. avoid nephrotoxins. morning labs pending.
[2020-05-14] MEDS: FUROSEMIDE 20 MG TAB PO SCH (10:41)
[2020-05-14 10:49] LABS: African American GFR (CKD) 47.4 (60.0-200.0); Albumin 2.8 g/dL (3.80-4.90); Albumin/Globulin Ratio 1.47 (1.60-3.17); Anion Gap 11.9 mmol/L (4.00-12.00); BUN/Creat Ratio 16.11 Ratio (12.00-20.00); Calcium 8.9 mg/dL (8.7-10.3); Carbon Dioxide 23.1 mmol/L (21.6-31.8); Globulin 1.9 g/dL (1.6-3.3); Magnesium 1.7 mg/dL (1.5-2.4); Potassium 3.2 mmol/L (3.5-5.5); Total Protein 4.7 g/dL (6.2-8.2)
[2020-05-14 10:53] LABS: Non-African American GFR(CKD) 40.9 (60.0-200.0)
[2020-05-14] MEDS ORDERED: Potassium Replacement Protocol 1 EACH MISC MISCELLANE PRN (10:55)
[2020-05-14 11:03] LABS: Total Bilirubin 40.7 mg/dL (0.2-1.2)
[2020-05-14] MEDS: POTASSIUM CHLORIDE ER 20 MEQ TAB.ER PO SCH ×2 (11:23→13:03)
--- NOTE | 2020-05-14 13:51 | P.PN ---
Subjective Progress Note Date: 05/14/20 Principal diagnosis: Jaundice This is a 52-year-old male admitted to the hospital with severe acute alcoholic hepatitis. He denies any acute changes through the night. Can he states he is feeling better today, more alert. States he had several bowel movements yesterday. He states he's had 2 already this morning. Denies any nausea or vomiting. Ammonia level dropped to 13 from 39, total bili 40.7. Patient seems more alert and awake this morning. Objective - Vital Signs Vital signs: Vital Signs Temp 97.8 F 05/14/20 11:30 Pulse 70 05/14/20 11:30 Resp 16 05/14/20 11:30 BP 113/70 05/14/20 11:30 Pulse Ox 98 05/14/20 05:00 Intake & Output 05/13/20 05/14/20 05/14/20 18:59 06:59 18:59 Intake Total 0 Output Total 2 1 Balance -2 -1 Intake: Oral 0 Output: Stool 2 1 Other: Voiding Method Toilet Toilet # Voids 2 1 # Bowel Movements 2 0 - Exam General appearance: The patient is alert, oriented, in no acute distress. HET: Head is normocephalic and atraumatic. Conjunctiva pink. Sclera icteric. Neck: Supple without lymphadenopathy. Trachea midline. Heart: S1 S2. Regular rate and rhythm. Lungs: No crackles or wheezes are heard. Abdomen: Soft, nontender, mild distention with bowel sounds. No palpable organomegaly. Extremities: No pedal edema. Skin: Very jaundiced. Neurological: No focal deficits. Alert and oriented 3. - Labs CBC & Chem 7: 05/14/20 04:55 05/14/20 04:55 Labs: Abnormal Lab Results - Last 24 Hours (Table) 05/11/20 05/13/20 05/14/20 Range/Units 04:28 03:13 04:55 WBC 16.7 H (3.8-10.6) k/uL RBC 2.89 L (4.30-5.90) m/uL Hgb 11.2 L (13.0-17.5) gm/dL Hct 34.2 L (39.0-53.0) % MCV 118.4 H (80.0-100.0) fL MCH 38.8 H (25.0-35.0) pg Neutrophils # 13.7 H (1.3-7.7) k/uL Monocytes # 1.2 H (0-1.0) k/uL Macrocytosis Marked A PT (9.9-11.9) sec INR (0.90-1.11) Potassium (3.5-5.5) mmol/L BUN (9.0-27.0) mg/dL Creatinine (0.6-1.5) mg/dL Est GFR (CKD-EPI)AfAm (60.0-200.0) Est GFR (CKD-EPI)NonAf (60.0-200.0) Total Bilirubin 38.7 H* (0.2-1.2) mg/dL AST (14-35) U/L Alkaline Phosphatase (41-126) U/L Total Protein (6.2-8.2) g/dL Albumin (3.80-4.90) g/dL Albumin (PEP) 2.84 L (3.80-4.90) g/dL Albumin/Globulin Ratio (1.60-3.17) g/dL Iecyy-2-Odozkajoh 0.51 L (0.60-1.00) g/dL Beta Globulins 0.50 L (0.60-1.30) g/dL Gamma Globulins 0.62 L (0.70-1.50) g/dL Lipase (14-60) U/L 05/14/05/14/20 Range/Units 04:55 04:55 WBC (3.8-10.6) k/uL RBC (4.30-5.90) m/uL Hgb (13.0-17.5) gm/dL Hct (39.0-53.0) % MCV (80.0-100.0) fL MCH (25.0-35.0) pg Neutrophils # (1.3-7.7) k/uL Monocytes # (0-1.0) k/uL Macrocytosis PT 19.2 H (9.9-11.9) sec INR 1.84 H (0.90-1.11) Potassium 3.2 L (3.5-5.5) mmol/L BUN 29.0 H (9.0-27.0) mg/dL Creatinine 1.8 H (0.6-1.5) mg/dL Est GFR (CKD-EPI)AfAm 47.4 L (60.0-200.0) Est GFR (CKD-EPI)NonAf 40.9 L (60.0-200.0) Total Bilirubin 40.7 H* (0.2-1.2) mg/dL AST 77 H (14-35) U/L Alkaline Phosphatase 188 H (41-126) U/L Total Protein 4.7 L (6.2-8.2) g/dL Albumin 2.80 L (3.80-4.90) g/dL Albumin (PEP) (3.80-4.90) g/dL Albumin/Globulin Ratio 1.47 L (1.60-3.17) g/dL Bzlry-0-Cvcrtnqwt (0.60-1.00) g/dL Beta Globulins (0.60-1.30) g/dL Gamma Globulins (0.70-1.50) g/dL Lipase 268 H (14-60) U/L Assessment and Plan (1) Hepatitis, alcoholic, acute Narrative/Plan: Severe acute alcoholic hepatitis superimposed on alcoholic cirrhosis of the liver with gradual worsening of total bilirubin. Today's total bilirubin is electively stable at 40.7. Serum transaminases are mildly elevated. Current Visit: Yes Status: Acute Code(s): K70.10 - ALCOHOLIC HEPATITIS WITHOUT ASCITES SNOMED Code(s): 9447045 (2) Jaundice Current Visit: Yes Status: Acute Code(s): R17 - UNSPECIFIED JAUNDICE SNOMED Code(s): 49814412 (3) Ascites of liver Current Visit: Yes Status: Acute Code(s): R18.8 - OTHER ASCITES SNOMED Code(s): 225339481 Plan: 1. Monitor labs closely, daily ammonia 2. Continue treatment for acute alcohol withdrawal 3. Abstinence from alcohol 4. Avoid hepatotoxic medications 5. Monitor electrolytes closely 6. Ultrasound for paracentesis ordered, scant amount of fluid unable obtain fluid studies 7. Start lactulose 30 g TID titrate to only 3-4 BM per day, Xifaxan 550 mg BID 8. Aldactone increased to 25 mg twice a day 9. Lasix 20 mg once daily for recommendations from nephrology 10. Low sodium restricted diet 11. Appreciate recommendations from nephrology Thank you for this consultation we'll continue to follow you closely. The impression and plan of care has been dictated as directed. I performed a history and examination of this patient, discussed the same with the dictator. I agree with the dictator's note ,documented as a scribe. Any additional findings or plans will be noted.
[2020-05-14] MEDS: diazePAM 2 MG TAB PO SCH ×2 (15:56→21:27)
--- NOTE | 2020-05-14 22:18 | P.PN ---
Progress Note - Text Progress Note Date: 05/14/20 Chief Complaint: Bloody urine History of presenting complaint: This is a pleasant 59-year-old patient who follows with Dr. Benjamin Thompson. Chronic stable medical conditions include prostate cancer with surgery, DVT 18 months ago which patient is on xarelto, seizure disorder, hypertension, hyperlipidemia, GERD. Patient's had tremors since the age of 42 and is predominantly present more when he is cautious about the same. On in the presence of other people. Several family members including his father grandfather uncle have had the same. Patient has history of alcoholism in the past. Has not been drinking close to three quarter bottle of wine per day. Over 2 weeks ago he was helping a friend in the boathouse and they couldn't open the dorsum the target into the window and he fell down hurting his knee at that time. 5 days ago he was started coming down the stairs awaiting some broken glass and fell down about 13 [address] He got some bruising in the suprapubic area. And has been noticing some blood in the urine. Decided to go down to his family doctor. Who decided to send him down to the ER. Denied any loss of consciousness with these episodes. Computed tomography scan workup in the ER did not show any trauma. Patient also notices basically jaundiced with a bilirubin about 25. Patient also been noticing abdominal distention. For last few weeks. No edema. Appetite has been okay. Patient admitted with severe hyperbilirubinemia, acute kidney injury versus chronic, uncontrolled familiar tremors. Started on primidone. Harbinger to have acute alcoholic hepatitis on alcoholic cirrhosis. Tremors did respond well to primidone. Patient developed DTs with hallucinations. Dose of Valium increased. Responded well. Because of Valium cutback. Today-less diet. Did tolerate some diet. On lactulose. Because of Valium cutback. Review of systems: Was done for constitutional, cardiovascular, GI, pulmonary. relevant finding as above Active Medications Diazepam (Diazepam 2 Mg Tab) 1 mg PO TID [facility] Stop: 05/15/20 09:01 Last Admin: 05/14/20 21:27 Dose: 1 mg Documented by: Furosemide (Furosemide 20 Mg Tab) 20 mg PO DAILY [facility] Last Admin: 05/14/20 10:41 Dose: 20 mg Documented by: Lactulose (Lactulose 20 Gm/30 Ml Cup) 30 gm PO TID [facility] Last Admin: 05/14/20 21:29 Dose: 30 gm Documented by: Levetiracetam (Levetiracetam 250 Mg Tab) 250 mg PO TID [facility] Last Admin: 05/14/20 21:26 Dose: 250 mg Documented by: Metoprolol Tartrate (Metoprolol Tartrate 25 Mg Tab) 25 mg PO BID [facility] Last Admin: 05/14/20 22:04 Dose: Not Given Documented by: Miscellaneous Information (Potassium Replacement Protocol 1 Each Misc) 1 each MISCELLANE DAILY PRN; Protocol PRN Reason: Per Protocol Naloxone HCl (Naloxone 0.4 Mg/Ml 1 Ml Vial) 0.2 mg IV Q2M PRN PRN Reason: Opioid Reversal Niacin (Niacin Tr 500 Mg Caplet) 1,000 mg PO DAILY [facility] Last Admin: 05/14/20 07:25 Dose: 1,000 mg Documented by: Pantoprazole Sodium (Pantoprazole 40 Mg Tablet) 40 mg PO DAILY [facility] Last Admin: 05/14/20 07:23 Dose: 40 mg Documented by: Primidone (Primidone 25 Mg Tab) 25 mg PO TID [facility] Last Admin: 05/14/20 21:28 Dose: 25 mg Documented by: Rifaximin (Rifaximin 550 Mg Tablet) 550 mg PO BID [facility] Stop: 06/12/20 21:01 Last Admin: 05/14/20 21:28 Dose: 550 mg Documented by: Sodium Bicarbonate (Sodium Bicarbonate Tab 650 Mg Tab) 650 mg PO BID [facility] Last Admin: 05/14/20 21:29 Dose: 650 mg Documented by: Spironolactone (Spironolactone 25 Mg Tab) 25 mg PO BID [facility] Last Admin: 05/14/20 21:29 Dose: 25 mg Documented by: Physical examination: VITAL SIGNS: 97.8, 70, 16, 113/70, 99% room air GENERAL: Laying in bed, tired EYES: Pupils equal. Conjunctiva yellow HEENT: External appearance of nose and ears normal, oral cavity grossly normal. NECK: JVD not raised; masses not palpable. HEART: First and second heart sounds are normal; no edema. LUNGS: Respiratory rate normal; clear to auscultation. ABDOMEN: Soft, distended, with some bruising of the suprapubic area nontender, liver spleen not palpable, dullness to percussion in the flanks, no masses palpable. PSYCH: Answering questions NEUROLOGICAL: Cranial nerves grossly intact; no facial asymmetry, power and sensation grossly intact-tremors improved. INVESTIGATIONS, reviewed in the clinical context: White count 16.7 hemoglobin 11.2 potassium 3.2 creatinine 1.8 Previous testing White count 13.3 hemoglobin 9.5 platelets 167 potassium 4.3 bun 23 creatinine 2.4 total bilirubin 26.5 AST 100 ALT 39 albumin 2.7 lipase 1119 Hepatitis A IgM antibody negative, hepatitis B surface antigen, or IgM antibody, hepatitis C IgG antibody all nonreactive EKG tracing personally reviewed by me-normal sinus rhythm Gallbladder ultrasound-gallbladder not clearly seen. Acetic fluid. Fatty infiltration of liver. Computed tomography scan of the chest abdomen pelvis-some coronary artery calcification, fatty infiltration of the liver, moderate abdominal ascites, kidneys of normal size and contour, nonhemorrhagic ascites suspected. Assessment: And plan -Severe hyperbilirubinemia. Suggestive of intrahepatic cholestasis. Hepatitis screen is negative. For A, B, and C. 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 Has had since age of 42. Responded well to primidone. -Alcohol use disorder -Chronic DVT for which patient is on xarelto -GERD -Hyperlipidemia -Essential hypertension -Seizure disorder -Hematuria in the setting of liver disorder and patient being on xarelto. Stop xarelto probably is enough for this patient who is probably order anticoagulant because of liver disease. Outpatient cystoscopy by Dr. lombardo -Acute kidney injury likely hepatorenal with ATN from hypotension. Patient renal size appears to be non-of the computed tomography scan. Urine is showing some protein. -Ascites likely from portal hypertension Plan: Decreased Valium 21 mg every 8. Continue with rifaximin, lactulose. Lactulose to be titrated to 2-4 bowel movements a day. Spoke to the nurse increase activity supervised.
[2020-05-15 04:24] LABS: Basophils % (A) 0 %; Eosinophils # (A) 0.4 k/uL (0-0.7); Eosinophils % (A) 2 %; HGB 10.7 gm/dL (13.0-17.5); Lymphocytes # (A) 0.8 k/uL (1.0-4.8); Lymphocytes % (A) 5 %; MCH 38.5 pg (25.0-35.0); MCHC 32.4 g/dL (31.0-37.0); MCV 118.7 fL (80.0-100.0); Mean Platelet Volume 8.4; Monocytes # (A) 1.5 k/uL (0-1.0); Monocytes % (A) 8 %; Neutrophils % (A) 84 %; Platelet Count 211 k/uL (150-450); RBC 2.78 m/uL (4.30-5.90); RDW 15.7 % (11.5-15.5); WBC 17.9 k/uL (3.8-10.6)
[2020-05-15 04:26] LABS: Macrocytosis Marked
[2020-05-15] MEDS: FUROSEMIDE 20 MG TAB PO SCH (08:34)
[2020-05-15 09:10] LABS: Anion Gap 11.3 mmol/L (4.00-12.00); BUN/Creat Ratio 16.11 Ratio (12.00-20.00); Carbon Dioxide 20.7 mmol/L (21.6-31.8); Potassium 3.2 mmol/L (3.5-5.5)
[2020-05-15 09:11] LABS: African American GFR (CKD) 47.4 (60.0-200.0); Albumin 2.6 g/dL (3.80-4.90); Albumin/Globulin Ratio 1.63 (1.60-3.17); Calcium 8.5 mg/dL (8.7-10.3); Globulin 1.6 g/dL (1.6-3.3); Magnesium 1.6 mg/dL (1.5-2.4); Non-African American GFR(CKD) 40.9 (60.0-200.0); Total Protein 4.2 g/dL (6.2-8.2)
[2020-05-15] MEDS ORDERED: POTASSIUM CHLORIDE ER 20 MEQ TAB.ER PO STA (09:25)
--- NOTE | 2020-05-15 09:26 | P.PN ---
Subjective patient is seen in follow-up for acute kidney injury. Renal function stable. Good urine output. Oral intake fair. No vomiting. admits to loose bowel movements from the lactulose. Vital signs are stable. General: The patient appeared well nourished and normally developed. HEENT: Head exam is unremarkable. Neck is without jugular venous distension. LUNGS: Lungs are clear to auscultation and percussion. Breath sounds decreased. HEART: Rate and Rhythm are regular. ABDOMEN: soft, nontender. Mildly distended. EXTREMITITES: trace edema. Objective - Vital Signs Vital signs: Vital Signs Temp 97.7 F 05/15/20 04:57 Pulse 72 05/15/20 04:57 Resp 16 05/15/20 04:57 BP 114/71 05/15/20 04:57 Pulse Ox 98 05/15/20 04:57 Intake & Output 05/14/20 05/15/20 05/15/20 18:59 06:59 18:59 Output Total 1 1 Balance -1 -1 Output: Stool 1 1 Other: Voiding Method Toilet Toilet # Voids 4 2 # Bowel Movements 4 0 - Labs CBC & Chem 7: 05/15/20 04:01 05/15/20 04:01 Labs: Abnormal Lab Results - Last 24 Hours (Table) 05/11/20 05/14/20 05/15/20 Range/Units 04:28 04:55 04:01 WBC 17.9 H (3.8-10.6) k/uL RBC 2.78 L (4.30-5.90) m/uL Hgb 10.7 L (13.0-17.5) gm/dL Hct 33.0 L (39.0-53.0) % MCV 118.7 H (80.0-100.0) fL MCH 38.5 H (25.0-35.0) pg RDW 15.7 H (11.5-15.5) % Neutrophils # 15.0 H (1.3-7.7) k/uL Lymphocytes # 0.8 L (1.0-4.8) k/uL Monocytes # 1.5 H (0-1.0) k/uL Macrocytosis Marked A Potassium 3.2 L (3.5-5.5) mmol/L Carbon Dioxide (21.6-31.8) mmol/L BUN 29.0 H (9.0-27.0) mg/dL Creatinine 1.8 H (0.6-1.5) mg/dL Est GFR (CKD-EPI)AfAm 47.4 L (60.0-200.0) Est GFR (CKD-EPI)NonAf 40.9 L (60.0-200.0) Glucose (70-110) mg/dL Calcium (8.7-10.3) mg/dL Total Bilirubin 40.7 H* (0.2-1.2) mg/dL AST 77 H (14-35) U/L Alkaline Phosphatase 188 H (41-126) U/L Total Protein 4.7 L (6.2-8.2) g/dL Albumin 2.80 L (3.80-4.90) g/dL Albumin (PEP) 2.84 L (3.80-4.90) g/dL Albumin/Globulin Ratio 1.47 L (1.60-3.17) g/dL Kqwtt-3-Klvuvhyys 0.51 L (0.60-1.00) g/dL Beta Globulins 0.50 L (0.60-1.30) g/dL Gamma Globulins 0.62 L (0.70-1.50) g/dL Lipase 268 H (14-60) U/L 05/15/20 Range/Units 04:01 WBC (3.8-10.6) k/uL RBC (4.30-5.90) m/uL Hgb (13.0-17.5) gm/dL Hct (39.0-53.0) % MCV (80.0-100.0) fL MCH (25.0-35.0) pg RDW (11.5-15.5) % Neutrophils # (1.3-7.7) k/uL Lymphocytes # (1.0-4.8) k/uL Monocytes # (0-1.0) k/uL Macrocytosis Potassium 3.2 L (3.5-5.5) mmol/L Carbon Dioxide 20.7 L (21.6-31.8) mmol/L BUN 29.0 H (9.0-27.0) mg/dL Creatinine 1.8 H (0.6-1.5) mg/dL Est GFR (CKD-EPI)AfAm 47.4 L (60.0-200.0) Est GFR (CKD-EPI)NonAf 40.9 L (60.0-200.0) Glucose 114 H (70-110) mg/dL Calcium 8.5 L (8.7-10.3) mg/dL Total Bilirubin 38.2 H* (0.2-1.2) mg/dL AST 77 H (14-35) U/L Alkaline Phosphatase 164 H (41-126) U/L Total Protein 4.2 L (6.2-8.2) g/dL Albumin 2.60 L (3.80-4.90) g/dL Albumin (PEP) (3.80-4.90) g/dL Albumin/Globulin Ratio (1.60-3.17) g/dL Wzbvx-2-Ttvcpueou (0.60-1.00) g/dL Beta Globulins (0.60-1.30) g/dL Gamma Globulins (0.70-1.50) g/dL Lipase (14-60) U/L Assessment and Plan Plan: assessment: 1. 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 renal function stable. creatinine 1.8 today. 2. Hypokalemia secondary to diuresis. 3. metabolic acidosis secondary to acute kidney injury maintained on oral bic arbonate. 4. Chronic liver disease with severe hyperbilirubinemia. GI following. plan: continue Aldactone 25 mg twice daily. hold Lasix today. Replace potassium. 40 mEq today. Replace magnesium. 2 g IV today. avoid nephrotoxins. continue to monitor renal function and urine output.
[2020-05-15 09:48] LABS: Total Bilirubin 38.2 mg/dL (0.2-1.2)
[2020-05-15] MEDS: METOPROLOL TARTRATE 25 MG TAB PO SCH ×2 (10:04→20:50)
[2020-05-15] MEDS: PANTOPRAZOLE 40 MG TABLET PO SCH (10:04)
[2020-05-15] MEDS: SPIRONOLACTONE 25 MG TAB PO SCH ×2 (10:04→20:51)
[2020-05-15] MEDS: LACTULOSE 20 GM/30 ML CUP PO SCH ×3 (10:05→20:51)
[2020-05-15] MEDS: diazePAM 2 MG TAB PO SCH (10:05)
[2020-05-15] MEDS: NIACIN TR 500 MG CAPLET PO SCH (10:06)
[2020-05-15] MEDS: levETIRAcetam 250 MG TAB PO SCH ×3 (10:06→20:50)
[2020-05-15] MEDS: SODIUM BICARBONATE TAB 650 MG TAB PO SCH ×2 (10:09→20:51)
[2020-05-15] MEDS: PRIMIDONE 25 MG TAB PO SCH ×3 (10:09→20:51)
[2020-05-15] MEDS: RIFAXIMIN 550 MG TABLET PO SCH ×2 (10:09→20:50)
[2020-05-15] MEDS: MAGNESIUM SULFATE-D5W PMX 1 GM in DEXTROSE/WATER 1 100ML.BAG IVPB SCH ×2 (10:16→12:12)
--- NOTE | 2020-05-15 12:18 | P.PN ---
Subjective Progress Note Date: 05/15/20 Principal diagnosis: Jaundice This is a 52-year-old male admitted to the hospital with severe acute alcoholic hepatitis. He denies any acute changes through the night. States he had six bowel movements yesterday. He denies any abdominal pain, nausea, or vomiting. He will get his last dose of Valium today for withdrawal symptoms that he experienced over the weekend. Objective - Vital Signs Vital signs: Vital Signs Temp 98.0 F 05/15/20 11:07 Pulse 71 05/15/20 11:07 Resp 16 05/15/20 11:07 BP 100/61 05/15/20 11:07 Pulse Ox 99 05/15/20 11:07 Intake & Output 05/14/20 05/15/20 05/15/20 18:59 06:59 18:59 Output Total 1 1 0 Balance -1 -1 0 Output: Stool 1 1 0 Other: Voiding Method Toilet Toilet Toilet # Voids 4 2 # Bowel Movements 4 0 - Exam General appearance: The patient is alert, oriented, in no acute distress. HET: Head is normocephalic and atraumatic. Conjunctiva pink. Sclera icteric. Neck: Supple without lymphadenopathy. Trachea midline. Heart: S1 S2. Regular rate and rhythm. Lungs: No crackles or wheezes are heard. Abdomen: Soft, nontender, mild distention with bowel sounds. No palpable organomegaly. Extremities: No pedal edema. Skin: Very jaundiced. Neurological: No focal deficits. Alert and oriented 3. - Labs CBC & Chem 7: 05/15/20 04:01 05/15/20 04:01 Labs: Abnormal Lab Results - Last 24 Hours (Table) 05/15/20 05/15/20 Range/Units 04:01 04:01 WBC 17.9 H (3.8-10.6) k/uL RBC 2.78 L (4.30-5.90) m/uL Hgb 10.7 L (13.0-17.5) gm/dL Hct 33.0 L (39.0-53.0) % MCV 118.7 H (80.0-100.0) fL MCH 38.5 H (25.0-35.0) pg RDW 15.7 H (11.5-15.5) % Neutrophils # 15.0 H (1.3-7.7) k/uL Lymphocytes # 0.8 L (1.0-4.8) k/uL Monocytes # 1.5 H (0-1.0) k/uL Macrocytosis Marked A Potassium 3.2 L (3.5-5.5) mmol/L Carbon Dioxide 20.7 L (21.6-31.8) mmol/L BUN 29.0 H (9.0-27.0) mg/dL Creatinine 1.8 H (0.6-1.5) mg/dL Est GFR (CKD-EPI)AfAm 47.4 L (60.0-200.0) Est GFR (CKD-EPI)NonAf 40.9 L (60.0-200.0) Glucose 114 H (70-110) mg/dL Calcium 8.5 L (8.7-10.3) mg/dL Total Bilirubin 38.2 H* (0.2-1.2) mg/dL AST 77 H (14-35) U/L Alkaline Phosphatase 164 H (41-126) U/L Total Protein 4.2 L (6.2-8.2) g/dL Albumin 2.60 L (3.80-4.90) g/dL Assessment and Plan (1) Hepatitis, alcoholic, acute Narrative/Plan: Severe acute alcoholic hepatitis superimposed on alcoholic cirrhosis of the liver with gradual worsening of total bilirubin. Today's total bilirubin is electively stable at 40.7. Serum transaminases are mildly elevated. Current Visit: Yes Status: Acute Code(s): K70.10 - ALCOHOLIC HEPATITIS WITHOUT ASCITES SNOMED Code(s): 5358122 (2) Jaundice Current Visit: Yes Status: Acute Code(s): R17 - UNSPECIFIED JAUNDICE SNOMED Code(s): 62728196 (3) Ascites of liver Current Visit: Yes Status: Acute Code(s): R18.8 - OTHER ASCITES SNOMED Code(s): 256169907 Plan: 1. Monitor labs closely, daily ammonia 2. Continue treatment for acute alcohol withdrawal 3. Abstinence from alcohol 4. Avoid hepatotoxic medications 5. Monitor electrolytes closely 6. Ultrasound for paracentesis ordered, scant amount of fluid unable obtain fluid studies 7. Start lactulose 30 g TID titrate to only 3-4 BM per day, Xifaxan 550 mg BID 8. Aldactone increased to 25 mg twice a day 9. Lasix 20 mg once daily for recommendations from nephrology 10. Low sodium restricted diet 11. Appreciate recommendations from nephrology Thank you for this consultation we'll continue to follow you closely. The impression and plan of care has been dictated as directed. I performed a history and examination of this patient, discussed the same with the dictator. I agree with the dictator's note ,documented as a scribe. Any additional findings or plans will be noted.
--- NOTE | 2020-05-15 20:54 | P.PN ---
Progress Note - Text Progress Note Date: 05/15/20 Chief Complaint: Bloody urine History of presenting complaint: This is a pleasant 59-year-old patient who follows with Dr. Benjamin Thompson. Chronic stable medical conditions include prostate cancer with surgery, DVT 18 months ago which patient is on xarelto, seizure disorder, hypertension, hyperlipidemia, GERD. Patient's had tremors since the age of 42 and is predominantly present more when he is cautious about the same. On in the presence of other people. Several family members including his father grandfather uncle have had the same. Patient has history of alcoholism in the past. Has not been drinking close to three quarter bottle of wine per day. Over 2 weeks ago he was helping a friend in the boathouse and they couldn't open the dorsum the target into the window and he fell down hurting his knee at that time. 5 days ago he was started coming down the stairs awaiting some broken glass and fell down about 13 [address] He got some bruising in the suprapubic area. And has been noticing some blood in the urine. Decided to go down to his family doctor. Who decided to send him down to the ER. Denied any loss of consciousness with these episodes. Computed tomography scan workup in the ER did not show any trauma. Patient also notices basically jaundiced with a bilirubin about 25. Patient also been noticing abdominal distention. For last few weeks. No edema. Appetite has been okay. Patient admitted with severe hyperbilirubinemia, acute kidney injury versus chronic, uncontrolled familiar tremors. Started on primidone. [place] to have acute alcoholic hepatitis on alcoholic cirrhosis. Tremors did respond well to primidone. Patient developed DTs with hallucinations. Dose of Valium increased. Responded well. Valium dose tapered off Today-patient is received last dose of 1 mg of Valium this morning. On Xifaxan and lactulose. Tired. Awake. Oral intake improving Review of systems: Was done for constitutional, cardiovascular, GI, pulmonary. relevant finding as above Active Medications Furosemide (Furosemide 20 Mg Tab) 20 mg PO DAILY [facility] Last Admin: 05/15/20 08:34 Dose: Not Given Documented by: Lactulose (Lactulose 20 Gm/30 Ml Cup) 30 gm PO TID [facility] Last Admin: 05/15/20 16:51 Dose: Not Given Documented by: Levetiracetam (Levetiracetam 250 Mg Tab) 250 mg PO TID [facility] Last Admin: 05/15/20 16:52 Dose: 250 mg Documented by: Magnesium Oxide (Magnesium Oxide 400 Mg Tab) 400 mg PO DAILY [facility] Metoprolol Tartrate (Metoprolol Tartrate 25 Mg Tab) 25 mg PO BID [facility] Last Admin: 05/15/20 10:04 Dose: 25 mg Documented by: Miscellaneous Information (Potassium Replacement Protocol 1 Each Misc) 1 each MISCELLANE DAILY PRN; Protocol PRN Reason: Per Protocol Naloxone HCl (Naloxone 0.4 Mg/Ml 1 Ml Vial) 0.2 mg IV Q2M PRN PRN Reason: Opioid Reversal Niacin (Niacin Tr 500 Mg Caplet) 1,000 mg PO DAILY [facility] Last Admin: 05/15/20 10:06 Dose: 1,000 mg Documented by: Pantoprazole Sodium (Pantoprazole 40 Mg Tablet) 40 mg PO DAILY [facility] Last Admin: 05/15/20 10:04 Dose: 40 mg Documented by: Primidone (Primidone 25 Mg Tab) 25 mg PO TID [facility] Last Admin: 05/15/20 16:52 Dose: 25 mg Documented by: Rifaximin (Rifaximin 550 Mg Tablet) 550 mg PO BID [facility] Stop: 06/12/20 21:01 Last Admin: 05/15/20 10:09 Dose: 550 mg Documented by: Sodium Bicarbonate (Sodium Bicarbonate Tab 650 Mg Tab) 650 mg PO BID [facility] Last Admin: 05/15/20 10:09 Dose: 650 mg Documented by: Spironolactone (Spironolactone 25 Mg Tab) 25 mg PO BID [facility] Last Admin: 05/15/20 10:04 Dose: 25 mg Documented by: Physical examination: VITAL SIGNS: 98, 71, 16, 100/61, 99% on room air GENERAL: Laying in bed, tired EYES: Pupils equal. Conjunctiva yellow HEENT: External appearance of nose and ears normal, oral cavity grossly normal. NECK: JVD not raised; masses not palpable. HEART: First and second heart sounds are normal; no edema. LUNGS: Respiratory rate normal; clear to auscultation. ABDOMEN: Soft, distended, with some bruising of the suprapubic area nontender, liver spleen not palpable, dullness to percussion in the flanks, no masses palpable. PSYCH: Answering questions NEUROLOGICAL: Cranial nerves grossly intact; no facial asymmetry, power and sensation grossly intact-tremors improved. INVESTIGATIONS, reviewed in the clinical context: White count 7.9 hemoglobin 10.7 potassium 3.2 creatinine 1.8 total bilirubin 38.2 Previous testing White count 13.3 hemoglobin 9.5 platelets 167 potassium 4.3 bun 23 creatinine 2.4 total bilirubin 26.5 AST 100 ALT 39 albumin 2.7 lipase 1119 Hepatitis A IgM antibody negative, hepatitis B surface antigen, or IgM antibody, hepatitis C IgG antibody all nonreactive EKG tracing personally reviewed by me-normal sinus rhythm Gallbladder ultrasound-gallbladder not clearly seen. Acetic fluid. Fatty infiltration of liver. Computed tomography scan of the chest abdomen pelvis-some coronary artery calcification, fatty infiltration of the liver, moderate abdominal ascites, kidneys of normal size and contour, nonhemorrhagic ascites suspected. Assessment: And plan -Severe hyperbilirubinemia. Suggestive of intrahepatic cholestasis. Hepatitis screen is negative. For A, B, and C. 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 Has had since age of 42. Responded well to primidone. -Alcohol use disorder -Chronic DVT for which patient is on xarelto -GERD -Hyperlipidemia -Essential hypertension -Seizure disorder -Hematuria in the setting of liver disorder and patient being on xarelto. Stop xarelto probably is enough for this patient who is probably order anticoagulant because of liver disease. Outpatient cystoscopy by Dr. lombardo -Acute kidney injury likely hepatorenal with ATN from hypotension. Patient renal size appears to be non-of the computed tomography scan. Urine is showing some protein. -Ascites likely from portal hypertension Plan: Valium discontinued Continue with rifaximin, lactulose. Lactulose to be titrated to 2-4 bowel movements a day. Spoke to the GI team. Follow labs.
[2020-05-16 06:54] LABS: HCT 35.6 % (39.0-53.0); HGB 11.6 gm/dL (13.0-17.5); MCH 38.8 pg (25.0-35.0); MCHC 32.7 g/dL (31.0-37.0); MCV 118.7 fL (80.0-100.0); Macrocytosis Marked; Mean Platelet Volume 9.1; Platelet Count 203 k/uL (150-450); WBC 16.3 k/uL (3.8-10.6)
[2020-05-16] MEDS: SPIRONOLACTONE 25 MG TAB PO SCH (08:55)
[2020-05-16] MEDS: PANTOPRAZOLE 40 MG TABLET PO SCH (08:55)
[2020-05-16] MEDS: METOPROLOL TARTRATE 25 MG TAB PO SCH ×2 (08:55→22:10)
[2020-05-16] MEDS: MAGNESIUM OXIDE 400 MG TAB PO SCH (08:56)
[2020-05-16] MEDS: FUROSEMIDE 20 MG TAB PO SCH (08:56)
[2020-05-16] MEDS: LACTULOSE 20 GM/30 ML CUP PO SCH ×3 (08:56→21:04)
[2020-05-16] MEDS: SODIUM BICARBONATE TAB 650 MG TAB PO SCH ×2 (08:56→22:11)
[2020-05-16] MEDS: PRIMIDONE 25 MG TAB PO SCH ×3 (08:57→22:13)
[2020-05-16] MEDS: levETIRAcetam 250 MG TAB PO SCH ×3 (08:57→22:13)
[2020-05-16] MEDS: RIFAXIMIN 550 MG TABLET PO SCH ×2 (08:57→22:10)
[2020-05-16] MEDS: NIACIN TR 500 MG CAPLET PO SCH (08:58)
[2020-05-16 09:21] LABS: African American GFR (CKD) 35.2 (60.0-200.0); Albumin 2.7 g/dL (3.80-4.90); Albumin/Globulin Ratio 1.5 (1.60-3.17); Anion Gap 11.5 mmol/L (4.00-12.00); BUN/Creat Ratio 13.48 Ratio (12.00-20.00); Calcium 8.9 mg/dL (8.7-10.3); Carbon Dioxide 19.5 mmol/L (21.6-31.8); Globulin 1.8 g/dL (1.6-3.3); Magnesium 2.1 mg/dL (1.5-2.4); Non-African American GFR(CKD) 30.4 (60.0-200.0); Potassium 3.6 mmol/L (3.5-5.5); Total Protein 4.5 g/dL (6.2-8.2)
--- NOTE | 2020-05-16 11:48 | P.PN ---
Subjective Progress Note Date: 05/16/20 Principal diagnosis: Jaundice This is a 52-year-old male admitted to the hospital with severe acute alcoholic hepatitis. He denies any acute changes through the night, but did not sleep well. He denies any abdominal pain, nausea, or vomiting. He is sitting up in the recliner. Speech is still slow but wasn't. He is alert and oriented 3. Objective - Vital Signs Vital signs: Vital Signs Temp 98.3 F 05/16/20 05:00 Pulse 69 05/16/20 05:00 Resp 20 05/16/20 05:00 BP 104/68 05/16/20 05:00 Pulse Ox 98 05/16/20 05:00 Intake & Output 05/15/20 05/16/20 05/16/20 18:59 06:59 18:59 Intake Total 200 500 Output Total 0 0 0 Balance 200 500 0 Intake: Intake, IV Titration 200 Amount Magnesium Sulfate-D5w Pmx 200 1 gm In Dextrose/Water 1 100ml.bag @ 100 mls/hr IVPB Q1H [facility] Rx#: [id number] Oral 500 Output: Stool 0 0 0 Other: Voiding Method Toilet Toilet Toilet # Voids 1 1 - Exam General appearance: The patient is alert, oriented, in no acute distress. HET: Head is normocephalic and atraumatic. Conjunctiva pink. Sclera icteric. Neck: Supple without lymphadenopathy. Trachea midline. Heart: S1 S2. Regular rate and rhythm. Lungs: No crackles or wheezes are heard. Abdomen: Soft, nontender, mild distention with bowel sounds. No palpable organomegaly. Extremities: No pedal edema. Skin: Very jaundiced. Neurological: No focal deficits. Alert and oriented 3. - Labs CBC & Chem 7: 05/16/20 06:04 05/16/20 06:04 Labs: Abnormal Lab Results - Last 24 Hours (Table) 05/16/20 05/16/20 Range/Units 06:04 06:04 WBC 16.3 H (3.8-10.6) k/uL RBC 3.00 L (4.30-5.90) m/uL Hgb 11.6 L (13.0-17.5) gm/dL Hct 35.6 L (39.0-53.0) % MCV 118.7 H (80.0-100.0) fL MCH 38.8 H (25.0-35.0) pg Macrocytosis Marked A Carbon Dioxide 19.5 L (21.6-31.8) mmol/L BUN 31.0 H (9.0-27.0) mg/dL Creatinine 2.3 H (0.6-1.5) mg/dL Est GFR (CKD-EPI)AfAm 35.2 L (60.0-200.0) Est GFR (CKD-EPI)NonAf 30.4 L (60.0-200.0) Glucose 117 H (70-110) mg/dL Total Bilirubin 42.0 H* (0.2-1.2) mg/dL AST 92 H (14-35) U/L ALT 57 H (10-49) U/L Alkaline Phosphatase 172 H (41-126) U/L Total Protein 4.5 L (6.2-8.2) g/dL Albumin 2.70 L (3.80-4.90) g/dL Albumin/Globulin Ratio 1.50 L (1.60-3.17) g/dL Assessment and Plan (1) Hepatitis, alcoholic, acute Narrative/Plan: Severe acute alcoholic hepatitis superimposed on alcoholic cirrhosis of the liver with gradual worsening of total bilirubin. Today's total bilirubin is electively stable at 40.7. Serum transaminases are mildly elevated. Current Visit: Yes Status: Acute Code(s): K70.10 - ALCOHOLIC HEPATITIS WITHOUT ASCITES SNOMED Code(s): 6860966 (2) Jaundice Current Visit: Yes Status: Acute Code(s): R17 - UNSPECIFIED JAUNDICE SNOMED Code(s): 60660550 (3) Ascites of liver Current Visit: Yes Status: Acute Code(s): R18.8 - OTHER ASCITES SNOMED Code(s): 885639664 Plan: 1. Monitor labs closely, daily ammonia 2. Continue treatment for acute alcohol withdrawal 3. Abstinence from alcohol 4. Avoid hepatotoxic medications 5. Monitor electrolytes closely 6. Ultrasound for paracentesis ordered, scant amount of fluid unable obtain fluid studies 7. Start lactulose 30 g TID titrate to only 3-4 BM per day, Xifaxan 550 mg BID 8. Aldactone increased to 25 mg twice a day 9. Lasix 20 mg once daily for recommendations from nephrology 10. Low sodium restricted diet 11. Appreciate recommendations from nephrology 12. Continue with physical therapy as ordered Thank you for this consultation we'll continue to follow you closely. The impression and plan of care has been dictated as directed. I performed a history and examination of this patient, discussed the same with the dictator. I agree with the dictator's note ,documented as a scribe. Any additional findings or plans will be noted.
--- NOTE | 2020-05-16 12:36 | P.PN ---
Subjective patient is seen in follow-up for acute kidney injury. Renal function worsening. Good urine output. Oral intake fair. No vomiting. admits to loose bowel movements from the lactulose. blood pressure on the lower side. Vital signs are stable. General: The patient appeared well nourished and normally developed. HEENT: Head exam is unremarkable. Neck is without jugular venous distension. LUNGS: Lungs are clear to auscultation and percussion. Breath sounds decreased. HEART: Rate and Rhythm are regular. ABDOMEN: soft, nontender. Mildly distended. EXTREMITITES: trace edema. Jaundice noted. Objective - Vital Signs Vital signs: Vital Signs Temp 97.9 F 05/16/20 12:05 Pulse 61 05/16/20 12:05 Resp 15 05/16/20 12:05 BP 100/66 05/16/20 12:05 Pulse Ox 99 05/16/20 12:05 Intake & Output 05/15/20 05/16/20 05/16/20 18:59 06:59 18:59 Intake Total 200 500 Output Total 0 0 0 Balance 200 500 0 Intake: Intake, IV Titration 200 Amount Magnesium Sulfate-D5w Pmx 200 1 gm In Dextrose/Water 1 100ml.bag @ 100 mls/hr IVPB Q1H [facility] Rx#: [id number] Oral 500 Output: Stool 0 0 0 Other: Voiding Method Toilet Toilet Toilet # Voids 1 1 - Labs CBC & Chem 7: 05/16/20 06:04 05/16/20 06:04 Labs: Abnormal Lab Results - Last 24 Hours (Table) 05/16/20 05/16/20 Range/Units 06:04 06:04 WBC 16.3 H (3.8-10.6) k/uL RBC 3.00 L (4.30-5.90) m/uL Hgb 11.6 L (13.0-17.5) gm/dL Hct 35.6 L (39.0-53.0) % MCV 118.7 H (80.0-100.0) fL MCH 38.8 H (25.0-35.0) pg Macrocytosis Marked A Carbon Dioxide 19.5 L (21.6-31.8) mmol/L BUN 31.0 H (9.0-27.0) mg/dL Creatinine 2.3 H (0.6-1.5) mg/dL Est GFR (CKD-EPI)AfAm 35.2 L (60.0-200.0) Est GFR (CKD-EPI)NonAf 30.4 L (60.0-200.0) Glucose 117 H (70-110) mg/dL Total Bilirubin 42.0 H* (0.2-1.2) mg/dL AST 92 H (14-35) U/L ALT 57 H (10-49) U/L Alkaline Phosphatase 172 H (41-126) U/L Total Protein 4.5 L (6.2-8.2) g/dL Albumin 2.70 L (3.80-4.90) g/dL Albumin/Globulin Ratio 1.50 L (1.60-3.17) g/dL Assessment and Plan Plan: assessment: 1. 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 renal function worsening. Creatinine 2.3 today. 2. Hypokalemia secondary to diuresis. better post replacement. 3. metabolic acidosis secondary to acute kidney injury maintained on oral bicarbonate. 4. Chronic liver disease with severe hyperbilirubinemia. GI following. plan: continue Aldactone 25 mg twice daily. stop Lasix. add midodrine 5 mg 3 times daily. check urine sodium. avoid nephrotoxins. continue to monitor renal function and urine output.
[2020-05-16 14:11] VITALS: BMI 27.7
[2020-05-16] MEDS: MIDODRINE 5 MG TAB PO SCH (17:40)
--- NOTE | 2020-05-16 21:12 | P.PN ---
Progress Note - Text Progress Note Date: 05/16/20 Chief Complaint: Bloody urine History of presenting complaint: This is a pleasant 59-year-old patient who follows with Dr. Benjamin Thompson. Chronic stable medical conditions include prostate cancer with surgery, DVT 18 months ago which patient is on xarelto, seizure disorder, hypertension, hyperlipidemia, GERD. Patient's had tremors since the age of 42 and is predominantly present more when he is cautious about the same. On in the presence of other people. Several family members including his father grandfather uncle have had the same. Patient has history of alcoholism in the past. Has not been drinking close to three quarter bottle of wine per day. Over 2 weeks ago he was helping a friend in the boathouse and they couldn't open the dorsum the target into the window and he fell down hurting his knee at that time. 5 days ago he was started coming down the stairs awaiting some broken glass and fell down about [address]. He got some bruising in the suprapubic area. And has been noticing some blood in the urine. Decided to go down to his family doctor. Who decided to send him down to the ER. Denied any loss of consciousness with these episodes. Computed tomography scan workup in the ER did not show any trauma. Patient also notices basically jaundiced with a bilirubin about 25. Patient also been noticing abdominal distention. For last few weeks. No edema. Appetite has been okay. Patient admitted with severe hyperbilirubinemia, acute kidney injury versus chronic, uncontrolled familiar tremors. Started on primidone. [place] to have acute alcoholic hepatitis on alcoholic cirrhosis. Tremors did respond well to primidone. Patient developed DTs with hallucinations. Dose of Valium increased. Responded well. Valium dose tapered off. She started on Xifaxan and lactulose by GI. Today-patient had several stools yesterday. Lactulose being titrated. Sitting upon a chair. at the bedside. Jaundice. Eating some. He would answer questions. Tired Review of systems: Was done for constitutional, cardiovascular, GI, pulmonary. relevant finding as above Active Medications Lactulose (Lactulose 20 Gm/30 Ml Cup) 30 gm PO TID [facility] Last Admin: 05/16/20 17:13 Dose: Not Given Documented by: Levetiracetam (Levetiracetam 250 Mg Tab) 250 mg PO TID [facility] Last Admin: 05/16/20 17:39 Dose: 250 mg Documented by: Magnesium Oxide (Magnesium Oxide 400 Mg Tab) 400 mg PO DAILY [facility] Last Admin: 05/16/20 08:56 Dose: 400 mg Documented by: Metoprolol Tartrate (Metoprolol Tartrate 25 Mg Tab) 25 mg PO BID [facility] Last Admin: 05/16/20 08:55 Dose: 25 mg Documented by: Midodrine (Midodrine 5 Mg Tab) 5 mg PO AC-TID [facility] Last Admin: 05/16/20 17:40 Dose: 5 mg Documented by: Miscellaneous Information (Potassium Replacement Protocol 1 Each Misc) 1 each MISCELLANE DAILY PRN; Protocol PRN Reason: Per Protocol Naloxone HCl (Naloxone 0.4 Mg/Ml 1 Ml Vial) 0.2 mg IV Q2M PRN PRN Reason: Opioid Reversal Niacin (Niacin Tr 500 Mg Caplet) 1,000 mg PO DAILY [facility] Last Admin: 05/16/20 08:58 Dose: 1,000 mg Documented by: Pantoprazole Sodium (Pantoprazole 40 Mg Tablet) 40 mg PO DAILY [facility] Last Admin: 05/16/20 08:55 Dose: 40 mg Documented by: Primidone (Primidone 25 Mg Tab) 25 mg PO TID [facility] Last Admin: 05/16/20 17:39 Dose: 25 mg Documented by: Rifaximin (Rifaximin 550 Mg Tablet) 550 mg PO BID [facility] Stop: 06/12/20 21:01 Last Admin: 05/16/20 08:57 Dose: 550 mg Documented by: Sodium Bicarbonate (Sodium Bicarbonate Tab 650 Mg Tab) 650 mg PO BID [facility] Last Admin: 05/16/20 08:56 Dose: 650 mg Documented by: Physical examination: VITAL SIGNS: 97.9, 61, 15, 100/66, 99% room air GENERAL: Sitting up in a chair, tired, awake EYES: Pupils equal. Conjunctiva yellow HEENT: External appearance of nose and ears normal, oral cavity grossly normal. NECK: JVD not raised; masses not palpable. HEART: First and second heart sounds are normal; no edema. LUNGS: Respiratory rate normal; clear to auscultation. ABDOMEN: Soft, distended, with some bruising, nontender, liver spleen not palpable, , no masses palpable. PSYCH: Answering questions appropriately though slow NEUROLOGICAL: -tremors improved. INVESTIGATIONS, reviewed in the clinical context: White count 16.3 hemoglobin 11.6 platelets 203 potassium 3.6 creatinine 2.3 bilirubin 42 Previous testing White count 13.3 hemoglobin 9.5 platelets 167 potassium 4.3 bun 23 creatinine 2.4 total bilirubin 26.5 AST 100 ALT 39 albumin 2.7 lipase 1119 Hepatitis A IgM antibody negative, hepatitis B surface antigen, or IgM antibody, hepatitis C IgG antibody all nonreactive EKG tracing personally reviewed by me-normal sinus rhythm Gallbladder ultrasound-gallbladder not clearly seen. Acetic fluid. Fatty infiltration of liver. Computed tomography scan of the chest abdomen pelvis-some coronary artery calcification, fatty infiltration of the liver, moderate abdominal ascites, kidneys of normal size and contour, nonhemorrhagic ascites suspected. Assessment: And plan -Severe hyperbilirubinemia. Suggestive of intrahepatic cholestasis. Hepatitis screen is negative. For A, B, and C. 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 Has had since age of 42. Responded well to primidone. -Alcohol use disorder -Chronic DVT for which patient is on xarelto -GERD -Hyperlipidemia -Essential hypertension -Seizure disorder -Hematuria in the setting of liver disorder and patient being on xarelto. Stop xarelto probably is enough for this patient who is probably order anticoagulant because of liver disease. Outpatient cystoscopy by Dr. lombardo -Acute kidney injury likely hepatorenal with ATN from hypotension. Patient renal size appears to be non-of the computed tomography scan. Urine is showing some protein. -Ascites likely from portal hypertension -Hepatic encephalopathy Plan: Discussed with the nurse to titrate the lactulose for bowel movements. Patient become prerenal again because of excessive diarrhea from lactulose. We'll hold off Aldactone for now. Backoff on fluid restriction. Repeat labs in the morning. Had a very lengthy talk with the patient and at the bedside. Several questions answered. They understand his guarded prognosis. Total time spent about 40 minutes of what 25 minutes of discussion.
[2020-05-17 05:58] LABS: HCT 37.6 % (39.0-53.0); HGB 12.7 gm/dL (13.0-17.5); MCHC 33.7 g/dL (31.0-37.0); MCV 118.4 fL (80.0-100.0); Mean Platelet Volume 8.8; Platelet Count 239 k/uL (150-450); RBC 3.18 m/uL (4.30-5.90); RDW 15.4 % (11.5-15.5); WBC 19.5 k/uL (3.8-10.6)
[2020-05-17 06:11] LABS: Macrocytosis Marked
[2020-05-17] MEDS: PANTOPRAZOLE 40 MG TABLET PO SCH (08:05)
[2020-05-17] MEDS: RIFAXIMIN 550 MG TABLET PO SCH ×2 (08:05→21:29)
[2020-05-17] MEDS: METOPROLOL TARTRATE 25 MG TAB PO SCH ×2 (08:05→21:29)
[2020-05-17] MEDS: NIACIN TR 500 MG CAPLET PO SCH (08:05)
[2020-05-17] MEDS: PRIMIDONE 25 MG TAB PO SCH ×3 (08:05→21:29)
[2020-05-17] MEDS: MAGNESIUM OXIDE 400 MG TAB PO SCH (08:05)
[2020-05-17] MEDS: SODIUM BICARBONATE TAB 650 MG TAB PO SCH ×2 (08:05→21:29)
[2020-05-17] MEDS: levETIRAcetam 250 MG TAB PO SCH ×3 (08:05→21:29)
[2020-05-17] MEDS: MIDODRINE 5 MG TAB PO SCH ×3 (08:05→16:56)
[2020-05-17] MEDS: LACTULOSE 20 GM/30 ML CUP PO SCH ×3 (08:08→21:08)
[2020-05-17 10:06] LABS: African American GFR (CKD) 27.8 (60.0-200.0); Albumin/Globulin Ratio 1.43 (1.60-3.17); Anion Gap 12.3 mmol/L (4.00-12.00); BUN/Creat Ratio 12.86 Ratio (12.00-20.00); Calcium 9.4 mg/dL (8.7-10.3); Carbon Dioxide 19.7 mmol/L (21.6-31.8); Globulin 2.1 g/dL (1.6-3.3); Magnesium 2.2 mg/dL (1.5-2.4); Potassium 3.5 mmol/L (3.5-5.5); Total Protein 5.1 g/dL (6.2-8.2)
[2020-05-17 10:34] LABS: Total Bilirubin 45.9 mg/dL (0.2-1.2)
--- NOTE | 2020-05-17 11:13 | P.PN ---
Subjective Progress Note Date: 05/17/20 Principal diagnosis: Jaundice This is a 52-year-old male admitted to the hospital with severe acute alcoholic hepatitis. Patient was asleep in the recliner. His was at the bedside and stated she was called at 2:00 in the morning stating the patient was going to leave AGAINST MEDICAL ADVICE. She was able to talk him down to stay in the hospital. Apparently he becomes very restless in the evening and last they became somewhat agitated. He is reported not sleeping well since he has been in the hospital. Speech is still slow but wasn't. He is alert and oriented 3. Nephrology has been following patient the recommendation was to discontinue the Lasix and continue with his Aldactone 25 mg twice a day. Objective - Vital Signs Vital signs: Vital Signs Temp 97.8 F 05/17/20 05:00 Pulse 68 05/17/20 05:00 Resp 18 05/17/20 05:00 BP 138/68 05/17/20 05:00 Pulse Ox 100 05/17/20 05:00 Intake & Output 05/16/20 05/17/20 05/17/20 18:59 06:59 18:59 Intake Total 250 200 Output Total 0 0 Balance 250 200 Weight 85.275 kg Intake: Oral 250 200 Output: Stool 0 0 Other: Voiding Method Toilet Toilet # Voids 1 2 2 - Exam General appearance: The patient is alert, oriented, in no acute distress. HET: Head is normocephalic and atraumatic. Conjunctiva pink. Sclera icteric. Neck: Supple without lymphadenopathy. Trachea midline. Heart: S1 S2. Regular rate and rhythm. Lungs: No crackles or wheezes are heard. Abdomen: Soft, nontender, mild distention with bowel sounds. No palpable organomegaly. Extremities: No pedal edema. Skin: Very jaundiced. Neurological: No focal deficits. Alert and oriented 3. - Labs CBC & Chem 7: 05/17/20 05:21 05/17/20 05:21 Labs: Abnormal Lab Results - Last 24 Hours (Table) 05/17/20 05/17/20 Range/Units 05:21 05:21 WBC 19.5 H (3.8-10.6) k/uL RBC 3.18 L (4.30-5.90) m/uL Hgb 12.7 L (13.0-17.5) gm/dL Hct 37.6 L (39.0-53.0) % MCV 118.4 H (80.0-100.0) fL MCH 40.0 H (25.0-35.0) pg Macrocytosis Marked A Sodium 134 L (135-145) mmol/L Carbon Dioxide 19.7 L (21.6-31.8) mmol/L Anion Gap 12.30 H (4.00-12.00) mmol/L BUN 36.0 H (9.0-27.0) mg/dL Creatinine 2.8 H (0.6-1.5) mg/dL Est GFR (CKD-EPI)AfAm 27.8 L (60.0-200.0) Est GFR (CKD-EPI)NonAf 24.0 L (60.0-200.0) Glucose 112 H (70-110) mg/dL Total Bilirubin 45.9 H* (0.2-1.2) mg/dL AST 98 H (14-35) U/L ALT 67 H (10-49) U/L Alkaline Phosphatase 195 H (41-126) U/L Total Protein 5.1 L (6.2-8.2) g/dL Albumin 3.00 L (3.80-4.90) g/dL Albumin/Globulin Ratio 1.43 L (1.60-3.17) g/dL Assessment and Plan (1) Hepatitis, alcoholic, acute Narrative/Plan: Severe acute alcoholic hepatitis superimposed on alcoholic cirrhosis of the liver with gradual worsening of total bilirubin. Today's total bilirubin is electively stable at 40.7. Serum transaminases are mildly elevated. Current Visit: Yes Status: Acute Code(s): K70.10 - ALCOHOLIC HEPATITIS WITHOUT ASCITES SNOMED Code(s): 9707624 (2) Jaundice Current Visit: Yes Status: Acute Code(s): R17 - UNSPECIFIED JAUNDICE SNOMED Code(s): 72165913 (3) Ascites of liver Current Visit: Yes Status: Acute Code(s): R18.8 - OTHER ASCITES SNOMED Code(s): 816149545 Plan: 1. Monitor labs closely, daily ammonia 2. Continue treatment for acute alcohol withdrawal 3. Abstinence from alcohol 4. Avoid hepatotoxic medications 5. Monitor electrolytes closely 6. Ultrasound for paracentesis ordered, scant amount of fluid unable obtain fluid studies 7. Start lactulose 30 g TID titrate to only 3-4 BM per day, Xifaxan 550 mg BID 8. Aldactone increased to 25 mg twice a day (currently discontinued by medicine) 9. Lasix 20 mg once daily has been discontinued by nephrology 10. Low sodium restricted diet 11. Appreciate recommendations from nephrology on diuretics 12. Continue with physical therapy as ordered Thank you for this consultation we'll continue to follow you closely. The impression and plan of care has been dictated as directed. I performed a history and examination of this patient, discussed the same with the dictator. I agree with the dictator's note ,documented as a scribe. Any additional findings or plans will be noted.
[2020-05-17] MEDS ORDERED: POTASSIUM CHLORIDE ER 20 MEQ TAB.ER PO STA (11:35)
--- NOTE | 2020-05-17 11:37 | P.PN ---
Subjective patient is seen in follow-up for acute kidney injury. Renal function continues to worsen. oral intake just fair. He has been voiding. Diuretics are held. No vomiting. admits to loose bowel movements from the lactulose. blood pressure better with midodrine. Vital signs are stable. General: The patient appeared well nourished and normally developed. HEENT: Head exam is unremarkable. Neck is without jugular venous distension. LUNGS: Lungs are clear to auscultation and percussion. Breath sounds decreased. HEART: Rate and Rhythm are regular. ABDOMEN: soft, nontender. Mildly distended. EXTREMITITES: 1+ edema. Jaundice noted. Objective - Vital Signs Vital signs: Vital Signs Temp 97.8 F 05/17/20 05:00 Pulse 68 05/17/20 05:00 Resp 18 05/17/20 05:00 BP 138/68 05/17/20 05:00 Pulse Ox 100 05/17/20 05:00 Intake & Output 05/16/20 05/17/20 05/17/20 18:59 06:59 18:59 Intake Total 250 200 Output Total 0 0 Balance 250 200 Weight 85.275 kg Intake: Oral 250 200 Output: Stool 0 0 Other: Voiding Method Toilet Toilet # Voids 1 2 2 - Labs CBC & Chem 7: 05/17/20 05:21 05/17/20 05:21 Labs: Abnormal Lab Results - Last 24 Hours (Table) 05/17/20 05/17/20 Range/Units 05:21 05:21 WBC 19.5 H (3.8-10.6) k/uL RBC 3.18 L (4.30-5.90) m/uL Hgb 12.7 L (13.0-17.5) gm/dL Hct 37.6 L (39.0-53.0) % MCV 118.4 H (80.0-100.0) fL MCH 40.0 H (25.0-35.0) pg Macrocytosis Marked A Sodium 134 L (135-145) mmol/L Carbon Dioxide 19.7 L (21.6-31.8) mmol/L Anion Gap 12.30 H (4.00-12.00) mmol/L BUN 36.0 H (9.0-27.0) mg/dL Creatinine 2.8 H (0.6-1.5) mg/dL Est GFR (CKD-EPI)AfAm 27.8 L (60.0-200.0) Est GFR (CKD-EPI)NonAf 24.0 L (60.0-200.0) Glucose 112 H (70-110) mg/dL Total Bilirubin 45.9 H* (0.2-1.2) mg/dL AST 98 H (14-35) U/L ALT 67 H (10-49) U/L Alkaline Phosphatase 195 H (41-126) U/L Total Protein 5.1 L (6.2-8.2) g/dL Albumin 3.00 L (3.80-4.90) g/dL Albumin/Globulin Ratio 1.43 L (1.60-3.17) g/dL Assessment and Plan Plan: assessment: 1. 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 renal function worsening. Creatinine 2.8 today. urine sodium low at 15 despite being on diuretics - patient appears to be also developing hepatorenal syndrome. no hydronephrosis noted on CAT scan. 2. Hypokalemia secondary to diuresis. 3. metabolic acidosis secondary to acute kidney injury maintained on oral bicarbonate. stable. 4. Chronic liver disease with severe hyperbilirubinemia. GI following. plan: hold all diuretics today - monitor volume status closely. maintain midodrine 5 mg 3 times daily. avoid nephrotoxins. continue to monitor renal function and urine output. overall prognosis guarded. Due to severe liver impairment, he will not be a candidate for long-term renal replacement therapy.
[2020-05-17] MEDS ORDERED: PHYTONADIONE ORAL 5 MG/5 ML ORAL.SYRG PO STA (15:47)
--- NOTE | 2020-05-17 21:02 | P.PN ---
Progress Note - Text Progress Note Date: 05/17/20 Chief Complaint: Tired History of presenting complaint: This is a pleasant 59-year-old patient who follows with Dr. Benjamin Thompson. Chronic stable medical conditions include prostate cancer with surgery, DVT 18 months ago which patient is on xarelto, seizure disorder, hypertension, hyperlipidemia, GERD. Patient's had tremors since the age of 42 and is predominantly present more when he is cautious about the same. On in the presence of other people. Several family members including his father grandfather uncle have had the same. Patient has history of alcoholism in the past. Has not been drinking close to three quarter bottle of wine per day. Over 2 weeks ago he was helping a friend in the boathouse and they couldn't open the dorsum the target into the window and he fell down hurting his knee at that time. 5 days ago he was started coming down the stairs awaiting some broken glass and fell down about 13 [address] He got some bruising in the suprapubic area. And has been noticing some blood in the urine. Decided to go down to his family doctor. Who decided to send him down to the ER. Denied any loss of consciousness with these episodes. Computed tomography scan workup in the ER did not show any trauma. Patient also notices basically jaundiced with a bilirubin about 25. Patient also been noticing abdominal distention. For last few weeks. No edema. Appetite has been okay. Patient admitted with severe hyperbilirubinemia, acute kidney injury versus chronic, uncontrolled familiar tremors. Started on primidone. Darragh to have acute alcoholic hepatitis on alcoholic cirrhosis. Tremors did respond well to primidone. Patient developed DTs with hallucinations. Dose of Valium increased. Responded well. Valium dose tapered off. started on Xifaxan and lactulose by GI. Went into acute kidney injury/from diarrhea and hepato-renal syndrome. Diuretics cutback. Today- at the bedside. Started to eat better. Tired. Diuretics have been held because of acute kidney injury. Still slightly encephalopathic. Has been off Valium. Review of systems: Was done for constitutional, cardiovascular, GI, pulmonary. relevant finding as above Active Medications Lactulose (Lactulose 20 Gm/30 Ml Cup) 30 gm PO TID [facility] Last Admin: 05/17/20 16:58 Dose: Not Given Documented by: Levetiracetam (Levetiracetam 250 Mg Tab) 250 mg PO TID [facility] Last Admin: 05/17/20 16:56 Dose: 250 mg Documented by: Magnesium Oxide (Magnesium Oxide 400 Mg Tab) 400 mg PO DAILY [facility] Last Admin: 05/17/20 08:05 Dose: 400 mg Documented by: Metoprolol Tartrate (Metoprolol Tartrate 25 Mg Tab) 25 mg PO BID [facility] Last Admin: 05/17/20 08:05 Dose: 25 mg Documented by: Midodrine (Midodrine 5 Mg Tab) 5 mg PO AC-TID [facility] Last Admin: 05/17/20 16:56 Dose: 5 mg Documented by: Miscellaneous Information (Potassium Replacement Protocol 1 Each Misc) 1 each MISCELLANE DAILY PRN; Protocol PRN Reason: Per Protocol Naloxone HCl (Naloxone 0.4 Mg/Ml 1 Ml Vial) 0.2 mg IV Q2M PRN PRN Reason: Opioid Reversal Niacin (Niacin Tr 500 Mg Caplet) 1,000 mg PO DAILY [facility] Last Admin: 05/17/20 08:05 Dose: 1,000 mg Documented by: Pantoprazole Sodium (Pantoprazole 40 Mg Tablet) 40 mg PO DAILY [facility] Last Admin: 05/17/20 08:05 Dose: 40 mg Documented by: Primidone (Primidone 25 Mg Tab) 25 mg PO TID [facility] Last Admin: 05/17/20 16:56 Dose: 25 mg Documented by: Rifaximin (Rifaximin 550 Mg Tablet) 550 mg PO BID [facility] Stop: 06/12/20 21:01 Last Admin: 05/17/20 08:05 Dose: 550 mg Documented by: Sodium Bicarbonate (Sodium Bicarbonate Tab 650 Mg Tab) 650 mg PO BID [facility] Last Admin: 05/17/20 08:05 Dose: 650 mg Documented by: Physical examination: VITAL SIGNS: 98.6, 76, 18, 101/64, 98% room air GENERAL: Sitting up in a chair, tired, awake EYES: Pupils equal. Conjunctiva yellow HEENT: External appearance of nose and ears normal, oral cavity grossly normal. NECK: JVD not raised; masses not palpable. HEART: First and second heart sounds are normal; no edema. LUNGS: Respiratory rate normal; clear to auscultation. ABDOMEN: Soft, distended, with some bruising, nontender, liver spleen not palpable, , no masses palpable. PSYCH: Answering questions appropriately though slow NEUROLOGICAL: -tremors improved. INVESTIGATIONS, reviewed in the clinical context: White count 19.5 hemoglobin 12.7 potassium 3.5 bun 36 creatinine 2.8 bilirubin 45.9. Previous testing White count 13.3 hemoglobin 9.5 platelets 167 potassium 4.3 bun 23 creatinine 2.4 total bilirubin 26.5 AST 100 ALT 39 albumin 2.7 lipase 1119 Hepatitis A IgM antibody negative, hepatitis B surface antigen, or IgM antibody, hepatitis C IgG antibody all nonreactive EKG tracing personally reviewed by me-normal sinus rhythm Gallbladder ultrasound-gallbladder not clearly seen. Acetic fluid. Fatty infiltration of liver. Computed tomography scan of the chest abdomen pelvis-some coronary artery calcification, fatty infiltration of the liver, moderate abdominal ascites, kidneys of normal size and contour, nonhemorrhagic ascites suspected. Assessment: And plan -Severe hyperbilirubinemia. Suggestive of intrahepatic cholestasis. Hepatitis screen is negative. For A, B, and C. 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 Has had since age of 42. Responded well to primidone. -Alcohol use disorder -Chronic DVT for which patient is on xarelto -GERD -Hyperlipidemia -Essential hypertension -Seizure disorder -Hematuria in the setting of liver disorder and patient being on xarelto. Stop xarelto probably is enough for this patient who is probably order anticoagulant because of liver disease. Outpatient cystoscopy by Dr. lombardo -Acute kidney injury likely hepatorenal with ATN from hypotension. Patient renal size appears to be non-of the computed tomography scan. Urine is showing some protein.-Worsening -Ascites likely from portal hypertension -Hepatic encephalopathy -Metabolic acidosis due to kidney injury -Worsening white count. No clinical evidence of infection. Plan: Diuretics have been held. We checked and some gentle hydration of 500 mL overnight. Care was discussed at length with the patient and the bedside. Prognosis guarded. Follow-up with gastroenterology and nephrology.
[2020-05-17] MEDS ORDERED: SODIUM CHLORIDE 0.9% 1,000 ML IV SCH (21:15)
[2020-05-18] MEDS: METOPROLOL TARTRATE 25 MG TAB PO SCH (08:08)
[2020-05-18] MEDS: MAGNESIUM OXIDE 400 MG TAB PO SCH (08:08)
[2020-05-18] MEDS: PANTOPRAZOLE 40 MG TABLET PO SCH (08:08)
[2020-05-18] MEDS: SODIUM BICARBONATE TAB 650 MG TAB PO SCH ×2 (08:08→20:37)
[2020-05-18] MEDS: PRIMIDONE 25 MG TAB PO SCH ×3 (08:08→20:38)
[2020-05-18] MEDS: RIFAXIMIN 550 MG TABLET PO SCH ×2 (08:09→20:37)
[2020-05-18] MEDS: levETIRAcetam 250 MG TAB PO SCH ×3 (08:09→20:38)
[2020-05-18] MEDS: LACTULOSE 20 GM/30 ML CUP PO SCH ×3 (08:09→20:38)
[2020-05-18] MEDS: NIACIN TR 500 MG CAPLET PO SCH (08:09)
[2020-05-18] MEDS: MIDODRINE 5 MG TAB PO SCH ×3 (08:10→18:24)
[2020-05-18 09:37] LABS: INR 1.74 (0.90-1.11); Prothrombin Time 18.2 sec (9.9-11.9)
[2020-05-18 11:46] LABS: African American GFR (CKD) 19.8 (60.0-200.0); Albumin 2.7 g/dL (3.80-4.90); Albumin/Globulin Ratio 1.42 (1.60-3.17); Anion Gap 12.4 mmol/L (4.00-12.00); BUN/Creat Ratio 12.7 Ratio (12.00-20.00); Carbon Dioxide 17.6 mmol/L (21.6-31.8); Globulin 1.9 g/dL (1.6-3.3); Potassium 3.7 mmol/L (3.5-5.5); Total Protein 4.6 g/dL (6.2-8.2)
--- NOTE | 2020-05-18 12:04 | P.PN ---
Subjective Progress Note Date: 05/18/20 Principal diagnosis: This is a 59-year-old male followed up for severe acute kidney injury that is getting worse. He has liver cirrhosis from alcoholism, severely jaundiced with bilirubin to 45 range although his ammonia level is normal and his mental status seems to be oriented 3 with minimal asterixis No nausea vomiting diarrhea appetite is supposedly failure. While signs are unremarkable except blood pressure is somewhat low in the 90 mm to 100 Urine output is not very well measured Objective - Vital Signs Vital signs: Vital Signs Temp 97.7 F 05/18/20 11:43 Pulse 65 05/18/20 11:43 Resp 17 05/18/20 11:43 BP 106/63 05/18/20 11:43 Pulse Ox 95 05/18/20 11:43 Intake & Output 05/17/20 05/18/20 05/18/20 18:59 06:59 18:59 Intake Total 1200 Output Total 0 Balance 1200 0 Intake: Oral 1200 Output: Stool 0 Other: Voiding Method Toilet Toilet Toilet # Voids 3 1 # Bowel Movements 1 On exam is severely jaundiced No JVP neck is supple no facial asymmetry Lungs are clear to auscultation with good air entry bilaterally Heart sounds are unremarkable for any murmur rub gallop Abdomen is slightly distended may be minimal ascites Extremity exam was trace edema Neurologically awake alert oriented minimal asterixis - Labs CBC & Chem 7: 05/17/20 05:21 05/18/20 05:30 Labs: Abnormal Lab Results - Last 24 Hours (Table) 05/18/20 05/18/20 Range/Units 05:30 05:30 PT 18.2 H (9.9-11.9) sec INR 1.74 H (0.90-1.11) Sodium 134 L (135-145) mmol/L Carbon Dioxide 17.6 L (21.6-31.8) mmol/L Anion Gap 12.40 H (4.00-12.00) mmol/L BUN 47.0 H (9.0-27.0) mg/dL Creatinine 3.7 H (0.6-1.5) mg/dL Est GFR (CKD-EPI)AfAm 19.8 L (60.0-200.0) Est GFR (CKD-EPI)NonAf 17.1 L (60.0-200.0) Total Bilirubin 43.6 H* (0.3-1.2) mg/dL AST 89 H (14-35) U/L ALT 61 H (10-49) U/L Alkaline Phosphatase 175 H (41-126) U/L Total Protein 4.6 L (6.2-8.2) g/dL Albumin 2.70 L (3.80-4.90) g/dL Albumin/Globulin Ratio 1.42 L (1.60-3.17) g/dL Assessment and Plan Assessment: Impression 1 acute kidney injury possibly going into hepatorenal syndrome, worsening creatinine 2. Possible chronic kidney disease last creatinine available is from 2017 and was 0.7 3. Mild degree of non-gap acidosis from acute kidney injury, bicarb is 17 on oral bicarb 4. Alcoholic hepatitis with cirrhosis Severe jaundice. 5. History of DVT, seizure disorder. Recommendation 1. Start hepatorenal cocktail as he is getting worse. 2. I have informed the patient on the severity of his renal failure and his liver failure and he seems to understand and
[2020-05-18 12:15] LABS: Non-African American GFR(CKD) 17.1 (60.0-200.0)
[2020-05-18] MEDS: ALBUMIN HUMAN 25% 50 ML in EMPTY BAG 1 BAG IVPB SCH ×2 (13:52→15:12)
[2020-05-18] MEDS: OCTREOTIDE 100 MCG/ML INJ SQ SCH (15:17)
[2020-05-19] MEDS: METOPROLOL TARTRATE 25 MG TAB PO SCH ×2 (00:12→10:10)
[2020-05-19] MEDS: ALBUMIN HUMAN 25% 50 ML in EMPTY BAG 1 BAG IVPB SCH ×6 (00:21→16:48)
[2020-05-19] MEDS: OCTREOTIDE 100 MCG/ML INJ SQ SCH ×3 (00:47→17:06)
[2020-05-19 06:53] LABS: Basophils # (A) 0.1 k/uL (0-0.2); Basophils % (A) 1 %; Eosinophils # (A) 0.6 k/uL (0-0.7); Eosinophils % (A) 4 %; HCT 33.5 % (39.0-53.0); HGB 10.7 gm/dL (13.0-17.5); Hypochromasia Slight; Lymphocytes # (A) 0.8 k/uL (1.0-4.8); Lymphocytes % (A) 6 %; MCH 37.6 pg (25.0-35.0); MCV 117.5 fL (80.0-100.0); Monocytes # (A) 1.3 k/uL (0-1.0); Monocytes % (A) 9 %; Neutrophils # (A) 12.2 k/uL (1.3-7.7); Neutrophils % (A) 80 %; Platelet Count 196 k/uL (150-450); RBC 2.85 m/uL (4.30-5.90); RDW 14.9 % (11.5-15.5); WBC 15.2 k/uL (3.8-10.6)
[2020-05-19 06:59] LABS: Macrocytosis Marked
--- NOTE | 2020-05-19 09:49 | P.PN ---
Subjective Progress Note Date: 05/18/20 Principal diagnosis: Acute alcoholic hepatitis, ascites, jaundice, encephalopathy Patient is seen sitting bedside with . No acute complaints today. Tolerating diet. No nausea or vomiting. Objective - Vital Signs Vital signs: Vital Signs Temp 97.7 F 05/18/20 11:43 Pulse 65 05/18/20 11:43 Resp 17 05/18/20 11:43 BP 106/63 05/18/20 11:43 Pulse Ox 95 05/18/20 11:43 Intake & Output 05/17/20 05/18/20 05/18/20 18:59 06:59 18:59 Intake Total 1200 Output Total 0 Balance 1200 0 Intake: Oral 1200 Output: Stool 0 Other: Voiding Method Toilet Toilet Toilet # Voids 3 1 # Bowel Movements 1 - Exam On physical examination, patient appears comfortable in no apparent distress. HEAD: Normocephalic, atraumatic. EYES: Scleral icterus. No conjunctival injection. MOUTH: No lesions, tongue midline. NECK: Trachea midline, no gross abnormalities. ABDOMEN: Soft, obese, moderately distended. Bowel sounds are positive. No organomegaly. No guarding or rigidity. EXTREMITIES: Bilateral pedal edema. SKIN: No rashes, jaundice. NEUROLOGIC: Alert and oriented to person and place. Minimal asterixis. No focal deficits. - Labs CBC & Chem 7: 05/19/20 06:30 05/18/20 05:30 Labs: Abnormal Lab Results - Last 24 Hours (Table) 05/18/20 05/18/20 Range/Units 05:30 05:30 PT 18.2 H (9.9-11.9) sec INR 1.74 H (0.90-1.11) Sodium 134 L (135-145) mmol/L Carbon Dioxide 17.6 L (21.6-31.8) mmol/L Anion Gap 12.40 H (4.00-12.00) mmol/L BUN 47.0 H (9.0-27.0) mg/dL Creatinine 3.7 H (0.6-1.5) mg/dL Est GFR (CKD-EPI)AfAm 19.8 L (60.0-200.0) Est GFR (CKD-EPI)NonAf 17.1 L (60.0-200.0) Total Bilirubin 43.6 H* (0.3-1.2) mg/dL AST 89 H (14-35) U/L ALT 61 H (10-49) U/L Alkaline Phosphatase 175 H (41-126) U/L Total Protein 4.6 L (6.2-8.2) g/dL Albumin 2.70 L (3.80-4.90) g/dL Albumin/Globulin Ratio 1.42 L (1.60-3.17) g/dL Assessment and Plan (1) Hepatitis, alcoholic, acute Narrative/Plan: 59-year-old male with a known history of alcohol abuse currently being managed for severe acute alcoholic hepatitis with ascites and encephalopathy. Patient has had worsening kidney function. Currently being managed by the nephrology team diuretic therapy has been held. Current Visit: Yes Status: Acute Code(s): K70.10 - ALCOHOLIC HEPATITIS WITHOUT ASCITES SNOMED Code(s): 7820414 (2) Ascites of liver Current Visit: Yes Status: Acute Code(s): R18.8 - OTHER ASCITES SNOMED Code(s): 184599160 (3) Hyperbilirubinemia Current Visit: Yes Status: Acute Code(s): E80.6 - OTHER DISORDERS OF BILIRUBIN METABOLISM SNOMED Code(s): 00113355 (4) Jaundice Current Visit: Yes Status: Acute Code(s): R17 - UNSPECIFIED JAUNDICE SNOMED Code(s): 11162519 Plan: Supportive care Continue to monitor daily CBC, CMP, ammonia levels INR stable today Alcohol abstinence Avoid hepatotoxic medications Continue lactulose 3 times a day titrated for 3-4 bowel movements daily Continue rifaximin twice a day Patient currently receiving octreotide, albumin and Midodrine for hepatorenal syndrome Nephrology service following the patient Thank you for allowing us to participate in the care of the patient
[2020-05-19] MEDS: SODIUM BICARBONATE TAB 650 MG TAB PO SCH (10:10)
[2020-05-19] MEDS: PANTOPRAZOLE 40 MG TABLET PO SCH (10:10)
[2020-05-19] MEDS: LACTULOSE 20 GM/30 ML CUP PO SCH ×2 (10:10→14:41)
[2020-05-19] MEDS: MAGNESIUM OXIDE 400 MG TAB PO SCH (10:10)
[2020-05-19] MEDS: MIDODRINE 5 MG TAB PO SCH ×3 (10:11→17:25)
[2020-05-19] MEDS: NIACIN TR 500 MG CAPLET PO SCH (10:11)
[2020-05-19] MEDS: levETIRAcetam 250 MG TAB PO SCH ×2 (10:11→16:49)
[2020-05-19] MEDS: RIFAXIMIN 550 MG TABLET PO SCH (10:12)
[2020-05-19 10:17] LABS: African American GFR (CKD) 15.2 (60.0-200.0); Albumin 3.2 g/dL (3.80-4.90); Albumin/Globulin Ratio 1.78 (1.60-3.17); BUN/Creat Ratio 11.74 Ratio (12.00-20.00); Globulin 1.8 g/dL (1.6-3.3); Non-African American GFR(CKD) 13.1 (60.0-200.0); Potassium 3.9 mmol/L (3.5-5.5)
[2020-05-19 11:59] VITALS: BP 96/61; PULSE 60; RESP 17; TEMP 97.6
[2020-05-19] MEDS: PRIMIDONE 25 MG TAB PO SCH ×2 (12:15→16:50)
--- NOTE | 2020-05-19 12:36 | P.PN ---
Subjective Progress Note Date: 05/19/20 Principal diagnosis: This is a 59-year-old male followed up for severe acute kidney injury that is getting worse. His acute kidney injury is deemed from severe liver disease, combination of pigment induced acute kidney injury and possibly hepatorenal syndrome now. He was started on the cocktail yesterday 05/18/2020 so far there is no He has alcoholic hepatitis as well as liver cirrhosis from alcoholism, severely jaundiced with bilirubin at 46 range although his ammonia level is normal and his mental status seems to be oriented 3 with minimal asterixis No nausea vomiting diarrhea appetite is supposedly fair vital signs are unremarkable except blood pressure is somewhat low in the 90 mm to 100 Urine output is not very well measured. Blood pressure is somewhat low currently he is on metoprolol 25 twice a day Objective - Vital Signs Vital signs: Vital Signs Temp 97.6 F 05/19/20 11:58 Pulse 60 05/19/20 11:58 Resp 17 05/19/20 11:58 BP 96/61 05/19/20 11:58 Pulse Ox 100 05/19/20 11:58 Intake & Output 05/18/20 05/19/20 05/19/20 18:59 06:59 18:59 Intake Total 540 Output Total 0 Balance 540 0 Intake: Oral 540 Output: Stool 0 Other: Voiding Method Toilet Toilet Toilet # Voids 1 3 # Bowel Movements 5 0 On examination is awake alert oriented 3 comfortable in the chair. is feeling fine Occasional diarrhea. HEENT exam no JVP neck is supple no facial asymmetry. Deeply jaundiced Lungs are clear to auscultation good air entry bilaterally Heart sounds are unremarkable for any murmur rub gallop Abdomen nontender, ascites moderate not tight. Extremity exam was mild edema Neurologically awake alert oriented mild asterixis - Labs CBC & Chem 7: 05/19/20 06:30 05/19/20 06:30 Labs: Abnormal Lab Results - Last 24 Hours (Table) 05/19/20 05/19/20 Range/Units 06:30 06:30 WBC 15.2 H (3.8-10.6) k/uL RBC 2.85 L (4.30-5.90) m/uL Hgb 10.7 L (13.0-17.5) gm/dL Hct 33.5 L (39.0-53.0) % MCV 117.5 H (80.0-100.0) fL MCH 37.6 H (25.0-35.0) pg Neutrophils # 12.2 H (1.3-7.7) k/uL Lymphocytes # 0.8 L (1.0-4.8) k/uL Monocytes # 1.3 H (0-1.0) k/uL Macrocytosis Marked A Sodium 133 L (135-145) mmol/L Carbon Dioxide 19.0 L (21.6-31.8) mmol/L Anion Gap 13.00 H (4.00-12.00) mmol/L BUN 54.0 H (9.0-27.0) mg/dL Creatinine 4.6 H (0.6-1.5) mg/dL Est GFR (CKD-EPI)AfAm 15.2 L (60.0-200.0) Est GFR (CKD-EPI)NonAf 13.1 L (60.0-200.0) BUN/Creatinine Ratio 11.74 L (12.00-20.00) Ratio Glucose 129 H (70-110) mg/dL Total Bilirubin 46.2 H* (0.3-1.2) mg/dL AST 82 H (14-35) U/L ALT 56 H (10-49) U/L Alkaline Phosphatase 157 H (41-126) U/L Total Protein 5.0 L (6.2-8.2) g/dL Albumin 3.20 L (3.80-4.90) g/dL Assessment and Plan Assessment: Impression 1 acute kidney injury, secondary to severe liver disease with possible pigment induced ATN as well as possibly going into hepatorenal syndrome, worsening creatinine. Started on cocktail yesterday 05/18/2020, so far no response 2. Possible chronic kidney disease last creatinine available is from 2017 and was 0.7 3. Mild degree of non-gap acidosis from acute kidney injury, bicarb is 17>19 on oral bicarb 4. Alcoholic hepatitis with cirrhosis Severe jaundice. 5. History of DVT, seizure disorder. Recommendation 1. Discontinue metoprolol because of the low blood pressure 2. Continue hepatorenal cocktail as he is getting worse. 3. I have informed the patient on the severity of his renal failure and his liver failure and he seems to understand and, his was present in [facility]
--- NOTE | 2020-05-19 18:55 | P.PN ---
Subjective Progress Note Date: 05/19/20 Principal diagnosis: Acute alcoholic hepatitis, ascites, jaundice, encephalopathy Patient is seen sitting bedside with . No acute complaints in no acute events per nursing. Multiple bowel movements yesterday. Kidney function continues to worsen. Objective - Vital Signs Vital signs: Vital Signs Temp 97.9 F 05/19/20 05:26 Pulse 58 L 05/19/20 05:26 Resp 15 05/19/20 05:26 BP 93/60 05/19/20 05:26 Pulse Ox 100 05/19/20 05:26 Intake & Output 05/18/20 05/19/20 05/19/20 18:59 06:59 18:59 Intake Total 540 Output Total 0 Balance 540 0 Intake: Oral 540 Output: Stool 0 Other: Voiding Method Toilet Toilet Toilet # Voids 1 3 # Bowel Movements 5 0 - Exam On physical examination, patient appears comfortable in no apparent distress. HEAD: Normocephalic, atraumatic. EYES: Scleral icterus. No conjunctival injection. MOUTH: No lesions, tongue midline. NECK: Trachea midline, no gross abnormalities. ABDOMEN: Soft, obese, moderately distended. Bowel sounds are positive. No organomegaly. No guarding or rigidity. EXTREMITIES: Bilateral pedal edema. SKIN: No rashes, jaundice. NEUROLOGIC: Alert and oriented to person and place. Minimal asterixis. No focal deficits. - Labs CBC & Chem 7: 05/19/20 06:30 05/19/20 06:30 Labs: Abnormal Lab Results - Last 24 Hours (Table) 05/18/20 05/19/20 05/19/20 Range/Units 05:30 06:30 06:30 WBC 15.2 H (3.8-10.6) k/uL RBC 2.85 L (4.30-5.90) m/uL Hgb 10.7 L (13.0-17.5) gm/dL Hct 33.5 L (39.0-53.0) % MCV 117.5 H (80.0-100.0) fL MCH 37.6 H (25.0-35.0) pg Neutrophils # 12.2 H (1.3-7.7) k/uL Lymphocytes # 0.8 L (1.0-4.8) k/uL Monocytes # 1.3 H (0-1.0) k/uL Macrocytosis Marked A Sodium 134 L 133 L (135-145) mmol/L Carbon Dioxide 17.6 L 19.0 L (21.6-31.8) mmol/L Anion Gap 12.40 H 13.00 H (4.00-12.00) mmol/L BUN 47.0 H 54.0 H (9.0-27.0) mg/dL Creatinine 3.7 H 4.6 H (0.6-1.5) mg/dL Est GFR (CKD-EPI)AfAm 19.8 L 15.2 L (60.0-200.0) Est GFR (CKD-EPI)NonAf 17.1 L 13.1 L (60.0-200.0) BUN/Creatinine Ratio 11.74 L (12.00-20.00) Ratio Glucose 129 H (70-110) mg/dL Total Bilirubin 43.6 H* 46.2 H* (0.3-1.2) mg/dL AST 89 H 82 H (14-35) U/L ALT 61 H 56 H (10-49) U/L Alkaline Phosphatase 175 H 157 H (41-126) U/L Total Protein 4.6 L 5.0 L (6.2-8.2) g/dL Albumin 2.70 L 3.20 L (3.80-4.90) g/dL Albumin/Globulin Ratio 1.42 L (1.60-3.17) g/dL Assessment and Plan (1) Hepatitis, alcoholic, acute Narrative/Plan: 59-year-old male with a known history of alcohol abuse currently being managed for severe acute alcoholic hepatitis with ascites and encephalopathy. Patient has had worsening kidney function. Currently being managed by the nephrology team diuretic therapy has been held.patient is receiving treatment for hepatorenal syndrome with albumin, midrodrine, and octreotide however creatinine continues to rise. INR was stable at 1.7. Overall poor prognosis and patient would likely benefit from referral to tertiary center for dedicated evaluation by hepatology. Current Visit: Yes Status: Acute Code(s): K70.10 - ALCOHOLIC HEPATITIS WITHOUT ASCITES SNOMED Code(s): 8859094 (2) Ascites of liver Current Visit: Yes Status: Acute Code(s): R18.8 - OTHER ASCITES SNOMED Code(s): 140673445 (3) Hyperbilirubinemia Current Visit: Yes Status: Acute Code(s): E80.6 - OTHER DISORDERS OF BILIRUBIN METABOLISM SNOMED Code(s): 84134176 (4) Jaundice Current Visit: Yes Status: Acute Code(s): R17 - UNSPECIFIED JAUNDICE SNOMED Code(s): 06847149 Plan: Supportive care Continue to monitor daily CBC, CMP, ammonia levels INR stable Alcohol abstinence Avoid hepatotoxic medications Continue lactulose 3 times a day titrated for 3-4 bowel movements daily Continue rifaximin twice a day Patient currently receiving octreotide, albumin and Midodrine for hepatorenal syndrome Nephrology service following the patient given persistently elevatedBilirubin,deteriorating kidney function with creatinine rising in spite of treatment for hepatorenal syndrome would recommend transfer to a tertiary center for dedicated evaluation by hepatology service Thank you for allowing us to participate in the care of the patient
--- NOTE | 2020-05-19 23:05 | P.PN ---
Subjective Progress Note Date: 05/18/20 Principal diagnosis: -Severe hyperbilirubinemia. Suggestive of intrahepatic cholestasis. Hepatitis screen is negative. For A, B, and C. Alcoholic hepatitis on top of alcoholic c irrhosis This is a pleasant 59-year-old patient who follows with Dr. Benjamin Thompson. Chronic stable medical conditions include prostate cancer with surgery, DVT 18 months ago which patient is on xarelto, seizure disorder, hypertension, hyperlipidemia, GERD. Patient's had tremors since the age of 42 and is predominantly present more when he is cautious about the same. On in the presence of other people. Several family members including his father grandfather uncle have had the same. Patient has history of alcoholism in the past. Has not been drinking close to three quarter bottle of wine per day. Over 2 weeks ago he was helping a friend in the boathouse and they couldn't open the dorsum the target into the window and he fell down hurting his knee at that time. 5 days ago he was started coming down the stairs awaiting some broken glass and fell down about 13 [address] He got some bruising in the suprapubic area. And has been noticing some blood in the urine. Decided to go down to his family doctor. Who decided to send him down to the ER. Denied any loss of consciousness with these episodes. Computed tomography scan workup in the ER did not show any trauma. Patient also notices basically jaundiced with a bilirubin about 25. Patient also been noticing abdominal distention. For last few weeks. No edema. Appetite has been okay. Patient admitted with severe hyperbilirubinemia, acute kidney injury versus chronic, uncontrolled familiar tremors. Started on primidone. [place] to have acute alcoholic hepatitis on alcoholic cirrhosis. Tremors did respond well to primidone. Patient developed DTs with hallucinations. Dose of Valium increased. Responded well. Valium dose tapered off. started on Xifaxan and lactulose by GI. Went into acute kidney injury/from diarrhea and hepato-renal syndrome. Diuretics cutback. 05/17- at the bedside. Started to eat better. Tired. Diuretics have been held because of acute kidney injury. Still slightly encephalopathic. Has been off Valium. 05/18/2020 Patient is currently sitting in the chair. Lethargic and very weak. No complaints of nausea vomiting or abdominal pain. Bilateral lower extremities Aniket wrapped due to significant edema. Patient also relates discoloration of skin. No fever no chills. No headache or dizziness or lightheadedness. Patient is hypotensive. Laboratory data showed sodium 134, potassium 3.7, BUN 47 creatinine 3.7 and a bilirubin level is 43.6 AST 89 ALT 61 alk phos 175 Albumin 2.7 GI and nephrology is following. Discussed with his and the patient at bedside in detail. Review of systems: Was done for constitutional, cardiovascular, GI, pulmonary. relevant finding as above Objective - Vital Signs Vital signs: Vital Signs Temp 98.0 F 05/18/20 20:40 Pulse 65 05/18/20 20:40 Resp 16 05/18/20 20:40 BP 109/68 05/18/20 20:40 Pulse Ox 99 05/18/20 20:40 Intake & Output 05/18/20 05/18/20 05/19/20 06:59 18:59 06:59 Intake Total 540 Output Total 0 Balance 0 540 Intake: Oral 540 Output: Stool 0 Other: Voiding Method Toilet Toilet # Voids 1 1 # Bowel Movements 1 - Exam Physical examination: VITAL SIGNS: 98.6, 76, 18, 101/64, 98% room air GENERAL: Sitting up in a chair, tired, awake EYES: Pupils equal. Conjunctiva yellow HEENT: External appearance of nose and ears normal, oral cavity grossly normal. NECK: JVD not raised; masses not palpable. HEART: First and second heart sounds are normal; no edema. LUNGS: Respiratory rate normal; clear to auscultation. ABDOMEN: Soft, distended, with some bruising, nontender, liver spleen not palpable, , no masses palpable. PSYCH: Answering questions appropriately though slow NEUROLOGICAL: -tremors improved. - Labs CBC & Chem 7: 05/19/20 06:30 05/19/20 06:30 Labs: Abnormal Lab Results - Last 24 Hours (Table) 05/18/20 05/18/20 Range/Units 05:30 05:30 PT 18.2 H (9.9-11.9) sec INR 1.74 H (0.90-1.11) Sodium 134 L (135-145) mmol/L Carbon Dioxide 17.6 L (21.6-31.8) mmol/L Anion Gap 12.40 H (4.00-12.00) mmol/L BUN 47.0 H (9.0-27.0) mg/dL Creatinine 3.7 H (0.6-1.5) mg/dL Est GFR (CKD-EPI)AfAm 19.8 L (60.0-200.0) Est GFR (CKD-EPI)NonAf 17.1 L (60.0-200.0) Total Bilirubin 43.6 H* (0.3-1.2) mg/dL AST 89 H (14-35) U/L ALT 61 H (10-49) U/L Alkaline Phosphatase 175 H (41-126) U/L Total Protein 4.6 L (6.2-8.2) g/dL Albumin 2.70 L (3.80-4.90) g/dL Albumin/Globulin Ratio 1.42 L (1.60-3.17) g/dL Assessment and Plan Assessment: INVESTIGATIONS, reviewed in the clinical context: White count 19.5 hemoglobin 12.7 potassium 3.5 bun 36 creatinine 2.8 bilirubin 45.9. Previous testing White count 13.3 hemoglobin 9.5 platelets 167 potassium 4.3 bun 23 creatinine 2.4 total bilirubin 26.5 AST 100 ALT 39 albumin 2.7 lipase 1119 Hepatitis A IgM antibody negative, hepatitis B surface antigen, or IgM antibody, hepatitis C IgG antibody all nonreactive EKG tracing personally reviewed by me-normal sinus rhythm Gallbladder ultrasound-gallbladder not clearly seen. Acetic fluid. Fatty infiltration of liver. Computed tomography scan of the chest abdomen pelvis-some coronary artery calcification, fatty infiltration of the liver, moderate abdominal ascites, kidneys of normal size and contour, nonhemorrhagic ascites suspected. Assessment: And plan -Severe hyperbilirubinemia. Suggestive of intrahepatic cholestasis. Hepatitis screen is negative. For A, B, and C. 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 Has had since age of 42. Responded well to primidone. -Alcohol use disorder -Chronic DVT for which patient is on xarelto -GERD -Hyperlipidemia -Essential hypertension -Seizure disorder -Hematuria in the setting of liver disorder and patient being on xarelto. Stop xarelto probably is enough for this patient who is probably order anticoagulant because of liver disease. Outpatient cystoscopy by Dr. lombardo -Acute kidney injury likely hepatorenal with ATN from hypotension. Patient renal size appears to be non-of the computed tomography scan. Urine is showing some protein.-Worsening -Ascites likely from portal hypertension -Hepatic encephalopathy -Metabolic acidosis due to kidney injury -Worsening white count. No clinical evidence of infection. Plan: Diuretics have been held. Renal function is worsening. Patient is still having significant hyperbilirubinemia. . Care was discussed at length with the patient and the bedside. Prognosis guarded. Follow-up with gastroenterology and nephrology. Time with Patient: Greater than 30
--- NOTE | 2020-05-19 23:09 | P.PN ---
Subjective Progress Note Date: 05/19/20 Principal diagnosis: -Severe hyperbilirubinemia. Suggestive of intrahepatic cholestasis. Hepatitis screen is negative. For A, B, and C. Alcoholic hepatitis on top of alcoholic c irrhosis This is a pleasant 59-year-old patient who follows with Dr. Benjamin Thompson. Chronic stable medical conditions include prostate cancer with surgery, DVT 18 months ago which patient is on xarelto, seizure disorder, hypertension, hyperlipidemia, GERD. Patient's had tremors since the age of 42 and is predominantly present more when he is cautious about the same. On in the presence of other people. Several family members including his father grandfather uncle have had the same. Patient has history of alcoholism in the past. Has not been drinking close to three quarter bottle of wine per day. Over 2 weeks ago he was helping a friend in the boathouse and they couldn't open the dorsum the target into the window and he fell down hurting his knee at that time. 5 days ago he was started coming down the stairs awaiting some broken glass and fell down about 13 [address]. He got some bruising in the suprapubic area. And has been noticing some blood in the urine. Decided to go down to his family doctor. Who decided to send him down to the ER. Denied any loss of consciousness with these episodes. Computed tomography scan workup in the ER did not show any trauma. Patient also notices basically jaundiced with a bilirubin about 25. Patient also been noticing abdominal distention. For last few weeks. No edema. Appetite has been okay. Patient admitted with severe hyperbilirubinemia, acute kidney injury versus chronic, uncontrolled familiar tremors. Started on primidone. [place] to have acute alcoholic hepatitis on alcoholic cirrhosis. Tremors did respond well to primidone. Patient developed DTs with hallucinations. Dose of Valium increased. Responded well. Valium dose tapered off. started on Xifaxan and lactulose by GI. Went into acute kidney injury/from diarrhea and hepato-renal syndrome. Diuretics cutback. 05/17- at the bedside. Started to eat better. Tired. Diuretics have been held because of acute kidney injury. Still slightly encephalopathic. Has been off Valium. 05/18/2020 Patient is currently sitting in the chair. Lethargic and very weak. No complaints of nausea vomiting or abdominal pain. Bilateral lower extremities Aniket wrapped due to significant edema. Patient also relates discoloration of skin. No fever no chills. No headache or dizziness or lightheadedness. Patient is hypotensive. Laboratory data showed sodium 134, potassium 3.7, BUN 47 creatinine 3.7 and a bilirubin level is 43.6 AST 89 ALT 61 alk phos 175 Albumin 2.7 GI and nephrology is following. Discussed with his and the patient at bedside in detail. 05/19/2020 Patient is currently sitting on the side of the bed. Very weak and lethargic. Awake and alert otherwise. Denies any abdominal pain. Bilateral lower extremity swelling is still present and is rapid at this time. Patient is being continued lactulose and rifaximin. Renal function is worsening with creatinine level 4.6 today. Diuretics on hold. Patient is still having significant hyperbilirubinemia worsening to 54.0 today. WBC count 15.1 hemoglobin 10.7 and platelets 196. Due to worsening liver functions and worsening renal failure follow-up possible hepatorenal syndrome, GI recommends transfer to tertiary facility for hepatology evaluation. I did discuss with [facility] transfer team who is willing to accept the patient for further management. Patient will be transferred to [facility] for hepatology service evaluation. Patient and his family is agreeable for transfer. Prognosis guarded at this time. Review of systems: Was done for constitutional, cardiovascular, GI, pulmonary. relevant finding as above Objective - Vital Signs Vital signs: Vital Signs Temp 97.6 F 05/19/20 11:58 Pulse 60 05/19/20 11:58 Resp 17 05/19/20 11:58 BP 96/61 05/19/20 11:58 Pulse Ox 100 05/19/20 11:58 Intake & Output 05/19/20 05/19/20 05/20/20 06:59 18:59 06:59 Intake Total 1000 Output Total 0 Balance 0 1000 Intake: Oral 1000 Output: Stool 0 Other: Voiding Method Toilet Toilet # Voids 3 3 # Bowel Movements 0 5 - Exam Physical examination: VITAL SIGNS: 98.6, 76, 18, 101/64, 98% room air GENERAL: Sitting up in a chair, tired, awake EYES: Pupils equal. Conjunctiva yellow HEENT: External appearance of nose and ears normal, oral cavity grossly normal. NECK: JVD not raised; masses not palpable. HEART: First and second heart sounds are normal; no edema. LUNGS: Respiratory rate normal; clear to auscultation. ABDOMEN: Soft, distended, with some bruising, nontender, liver spleen not palpable, , no masses palpable. PSYCH: Answering questions appropriately though slow NEUROLOGICAL: -tremors improved. - Labs CBC & Chem 7: 05/19/20 06:30 05/19/20 06:30 Labs: Abnormal Lab Results - Last 24 Hours (Table) 05/19/20 05/19/20 Range/Units 06:30 06:30 WBC 15.2 H (3.8-10.6) k/uL RBC 2.85 L (4.30-5.90) m/uL Hgb 10.7 L (13.0-17.5) gm/dL Hct 33.5 L (39.0-53.0) % MCV 117.5 H (80.0-100.0) fL MCH 37.6 H (25.0-35.0) pg Neutrophils # 12.2 H (1.3-7.7) k/uL Lymphocytes # 0.8 L (1.0-4.8) k/uL Monocytes # 1.3 H (0-1.0) k/uL Macrocytosis Marked A Sodium 133 L (135-145) mmol/L Carbon Dioxide 19.0 L (21.6-31.8) mmol/L Anion Gap 13.00 H (4.00-12.00) mmol/L BUN 54.0 H (9.0-27.0) mg/dL Creatinine 4.6 H (0.6-1.5) mg/dL Est GFR (CKD-EPI)AfAm 15.2 L (60.0-200.0) Est GFR (CKD-EPI)NonAf 13.1 L (60.0-200.0) BUN/Creatinine Ratio 11.74 L (12.00-20.00) Ratio Glucose 129 H (70-110) mg/dL Total Bilirubin 46.2 H* (0.3-1.2) mg/dL AST 82 H (14-35) U/L ALT 56 H (10-49) U/L Alkaline Phosphatase 157 H (41-126) U/L Total Protein 5.0 L (6.2-8.2) g/dL Albumin 3.20 L (3.80-4.90) g/dL Assessment and Plan Assessment: INVESTIGATIONS, reviewed in the clinical context: White count 19.5 hemoglobin 12.7 potassium 3.5 bun 36 creatinine 2.8 bilirubin 45.9. Previous testing White count 13.3 hemoglobin 9.5 platelets 167 potassium 4.3 bun 23 creatinine 2.4 total bilirubin 26.5 AST 100 ALT 39 albumin 2.7 lipase 1119 Hepatitis A IgM antibody negative, hepatitis B surface antigen, or IgM antibody, hepatitis C IgG antibody all nonreactive EKG tracing personally reviewed by me-normal sinus rhythm Gallbladder ultrasound-gallbladder not clearly seen. Acetic fluid. Fatty infiltration of liver. Computed tomography scan of the chest abdomen pelvis-some coronary artery calcification, fatty infiltration of the liver, moderate abdominal ascites, kidneys of normal size and contour, nonhemorrhagic ascites suspected. Assessment: And plan -Severe hyperbilirubinemia. Suggestive of intrahepatic cholestasis. Hepatitis screen is negative. For A, B, and C. 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 Has had since age of 42. Responded well to primidone. -Alcohol use disorder -Chronic DVT for which patient is on xarelto -GERD -Hyperlipidemia -Essential hypertension -Seizure disorder -Hematuria in the setting of liver disorder and patient being on xarelto. Stop xarelto probably is enough for this patient who is probably order anticoagulant because of liver disease. Outpatient cystoscopy by Dr. lombardo -Acute kidney injury likely hepatorenal with ATN from hypotension. Patient renal size appears to be non-of the computed tomography scan. Urine is showing some protein.-Worsening -Ascites likely from portal hypertension -Hepatic encephalopathy -Metabolic acidosis due to kidney injury -Worsening white count. No clinical evidence of infection. Plan: Diuretics have been held. Renal function is worsening. Patient is still having significant hyperbilirubinemia. . Care was discussed at length with the patient and the bedside. Prognosis guarded. Follow-up with gastroenterology and nephrology. Time with Patient: Greater than 30
[2020-05-20 07:44] LABS: Total Bilirubin 43.6 mg/dL (0.3-1.2)
[2020-05-20 09:10] LABS: Total Bilirubin 46.2 mg/dL (0.3-1.2)
--- NOTE | 2020-05-22 19:26 | P.DS ---
Providers Date of admission: 05/09/20 18:01 Expected date of discharge: 05/19/20 Attending physician: Chino Jo Consults: 05/09/20 18:01 Consult Physician Urgent Consulting Provider: Cyndi Rodriguez Consult Reason/Comments: acute jaundice, hyperbilirubinemia Do you want consulting provider notified?: Yes 05/10/20 09:30 Consult Physician Routine Consulting Provider: Paul Lombardo Consult Reason/Comments: hematuria Do you want consulting provider notified?: Yes 05/10/20 15:16 Consult Physician Urgent Consulting Provider: Jenny Sampson Consult Reason/Comments: acute renal failure, acute alocholic hepatitis Do you want consulting provider notified?: Yes Primary care physician: Benjamin Thompson [facility] Course: Discharge diagnosis -Severe hyperbilirubinemia. Suggestive of intrahepatic cholestasis. Hepatitis screen is negative. For A, B, and C. Alcoholic hepatitis on top of alcoholic cirrhosis -Acute kidney injury likely hepatorenal with ATN from hypotension. Patient renal size appears to be non-of the computed tomography scan. 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 Has had since age of 42. Responded well to primidone. -Alcohol use disorder -Chronic DVT for which patient is on xarelto -GERD -Hyperlipidemia -Essential hypertension -Seizure disorder -Hematuria in the setting of liver disorder and patient being on xarelto. Stop xarelto probably is enough for this patient who is probably order anticoagulant because of liver disease. Outpatient cystoscopy by Dr. lombardo -Ascites likely from portal hypertension -Hepatic encephalopathy -Metabolic acidosis due to kidney injury -Worsening white count. No clinical evidence of infection. Hospital course This is a pleasant 59-year-old patient who follows with Dr. Benjamin Thompson. Chronic stable medical conditions include prostate cancer with surgery, DVT 18 months ago which patient is on xarelto, seizure disorder, hypertension, hyperlipidemia, GERD. Patient's had tremors since the age of 42 and is predominantly present more when he is cautious about the same. On in the presence of other people. Several family members including his father grandfather uncle have had the same. Patient has history of alcoholism in the past. Has not been drinking close to three quarter bottle of wine per day. Over 2 weeks ago he was helping a friend in the boathouse and they couldn't open the dorsum the target into the window and he fell down hurting his knee at that time. 5 days ago he was started coming down the stairs awaiting some broken glass and fell down about [address] He got some bruising in the suprapubic area. And has been noticing some blood in the urine. Decided to go down to his family doctor. Who decided to send him down to the ER. Denied any loss of consciousness with these episodes. Computed tomography scan workup in the ER did not show any trauma. Patient also notices basically jaundiced with a bilirubin about 25. Patient also been noticing abdominal distention. For last few weeks. No edema. Appetite has been okay. Patient admitted with severe hyperbilirubinemia, acute kidney injury versus chronic, uncontrolled familiar tremors. Started on primidone. [place] to have acute alcoholic hepatitis on alcoholic cirrhosis. Tremors did respond well to primidone. Patient developed DTs with hallucinations. Dose of Valium increased. Responded well. Valium dose tapered off. started on Xifaxan and lactulose by GI. Went into acute kidney injury/from diarrhea and hepato-renal syndrome. Diuretics cutback. 05/17- at the bedside. Started to eat better. Tired. Diuretics have been held because of acute kidney injury. Still slightly encephalopathic. Has been off Valium. 05/18/2020 Patient is currently sitting in the chair. Lethargic and very weak. No complaints of nausea vomiting or abdominal pain. Bilateral lower extremities Aniket wrapped due to significant edema. Patient also relates discoloration of skin. No fever no chills. No headache or dizziness or lightheadedness. Patient is hypotensive. Laboratory data showed sodium 134, potassium 3.7, BUN 47 creatinine 3.7 and a bilirubin level is 43.6 AST 89 ALT 61 alk phos 175 Albumin 2.7 GI and nephrology is following. Discussed with his and the patient at bedside in detail. 05/19/2020 Patient is currently sitting on the side of the bed. Very weak and lethargic. Awake and alert otherwise. Denies any abdominal pain. Bilateral lower extremity swelling is still present and is rapid at this time. Patient is being continued lactulose and rifaximin. Renal function is worsening with creatinine level 4.6 today. Diuretics on hold. Patient is still having significant hyperbilirubinemia worsening to 54.0 today. WBC count 15.1 hemoglobin 10.7 and platelets 196. Due to worsening liver functions and worsening renal failure follow-up possible hepatorenal syndrome, GI recommends transfer to tertiary facility for hepatology evaluation. I did discuss with [facility] transfer team who is willing to accept the patient for further management. Patient will be transferred to [facility] for hepatology service evaluation. Patient and his family is agreeable for transfer. Prognosis guarded at this time. Physical examination: GENERAL: Sitting up in a chair, tired, awake EYES: Pupils equal. Conjunctiva yellow HEENT: External appearance of nose and ears normal, oral cavity grossly normal. NECK: JVD not raised; masses not palpable. HEART: First and second heart sounds are normal; no edema. LUNGS: Respiratory rate normal; clear to auscultation. ABDOMEN: Soft, distended, with some bruising, nontender, liver spleen not palpable, , no masses palpable. PSYCH: Answering questions appropriately though slow NEUROLOGICAL: -tremors improved. Vital Signs Temp 97.6 F 05/19/20 11:58 Pulse 60 05/19/20 11:58 Resp 17 05/19/20 11:58 BP 96/61 05/19/20 11:58 Pulse Ox 100 05/19/20 11:58 Intake & Output 05/19/20 05/19/20 05/20/20 06:59 18:59 06:59 Intake Total 1000 Output Total 0 Balance 0 1000 Intake: Oral 1000 Output: Stool 0 Other: Voiding Method Toilet Toilet # Voids 3 3 # Bowel Movements 0 5 Time taken greater than 45 minutes in patient care in which more than 50% was spent on counseling and coordination of care. Patient Condition at Discharge: Serious Plan - Discharge Summary New Discharge Prescriptions: No Action Rivaroxaban [Xarelto] 20 mg PO DAILY Fenofibric Acid (Choline) [Trilipix] 135 mg PO DAILY Vitamin B Complex 1 cap PO DAILY Cholecalciferol [Vitamin D3 (25 Mcg = 1000 Iu)] 2,000 unit PO DAILY atenoloL [Tenormin] 25 mg PO DAILY #30 tab Fish Oil/Dha/Epa [Fish Oil 1,200 mg Fish Oil] 1 cap PO DAILY levETIRAcetam [Keppra] 250 mg PO TID Niacin [Niacin ER] 1,000 mg PO DAILY Omeprazole 40 mg PO DAILY Discharge Medication List Fenofibric Acid (Choline) [Trilipix] 135 mg PO DAILY 05/25/14 [History] Rivaroxaban [Xarelto] 20 mg PO DAILY 05/25/14 [History] Cholecalciferol [Vitamin D3 (25 Mcg = 1000 Iu)] 2,000 unit PO DAILY 10/07/16 [History] Vitamin B Complex 1 cap PO DAILY 10/07/16 [History] atenoloL [Tenormin] 25 mg PO DAILY #30 tab 10/09/16 [Rx] Fish Oil/Dha/Epa [Fish Oil 1,200 mg Fish Oil] 1 cap PO DAILY 05/09/20 [History] Niacin [Niacin ER] 1,000 mg PO DAILY 05/09/20 [History] Omeprazole 40 mg PO DAILY 05/09/20 [History] levETIRAcetam [Keppra] 250 mg PO TID 05/09/20 [History] Follow up Appointment(s)/Referral(s): Benjamin Thompson MD [Primary Care Provider] - [address],[place] [NON-STAFF] - As Needed Patient Instructions/Handouts: Abuse of Alcohol (DC), Alcohol Withdrawal (DC), Fall Prevention (DC) Discharge Disposition: TRANSFER TO [facility]
== END 2020-05-19 19:00 | disposition short-term general hospital (02) | DRG 432 ==
LOC: EC 13:24 → 6NMEDSUR 18:01
PROVIDERS: ADMIT Hospitalist; ATTEND Hospitalist
DX: K70.31 Alcoholic cirrhosis of liver with ascites (principal); N17.0 Acute kidney failure with tubular necrosis; K76.7 Hepatorenal syndrome; K83.1 Obstruction of bile duct; K76.6 Portal hypertension; F10.231 Alcohol dependence with withdrawal delirium; E87.2 Acidosis; D68.9 Coagulation defect, unspecified; R44.3 Hallucinations, unspecified; K70.11 Alcoholic hepatitis with ascites; K72.90 Hepatic failure, unspecified without coma; K21.9 Gastro-esophageal reflux disease without esophagitis; E78.5 Hyperlipidemia, unspecified; G25.0 Essential tremor; I10 Essential (primary) hypertension; I25.10 Atherosclerotic heart disease of native coronary artery without angina pectoris; W10.8XXA Fall (on) (from) other stairs and steps, initial encounter; Y92.019 Unspecified place in single-family (private) house as the place of occurrence of the external cause; G40.909 Epilepsy, unspecified, not intractable, without status epilepticus; I48.91 Unspecified atrial fibrillation; E87.6 Hypokalemia; T50.2X5A Adverse effect of carbonic-anhydrase inhibitors, benzothiadiazides and other diuretics, initial encounter; K76.0 Fatty (change of) liver, not elsewhere classified; D53.9 Nutritional anemia, unspecified; K75.89 Other specified inflammatory liver diseases; R31.0 Gross hematuria; Z79.899 Other long term (current) drug therapy; Z79.01 Long term (current) use of anticoagulants; Z91.041 Radiographic dye allergy status; Z91.011 Allergy to milk products; Z91.013 Allergy to seafood; Z88.8 Allergy status to other drugs, medicaments and biological substances; Z91.09 Other allergy status, other than to drugs and biological substances; Z86.718 Personal history of other venous thrombosis and embolism; Z98.890 Other specified postprocedural states; Z85.46 Personal history of malignant neoplasm of prostate; Z90.79 Acquired absence of other genital organ(s)
CPT/HCPCS: 36415; 70450; 71045; 71250; 72125; 74176; 76705; 80048; 80053; 80074; 80329; 81001; 82103; 82105; 82140; 82150; 82248; 82272; 82390; 82550; 82728; 83516; 83540; 83550; 83605; 83690; 83735; 84132; 84165; 84300; 85025; 85027; 85610; 85730; 86038; 86376; 87086; 93005; 96374; 99285

== ENCOUNTER → 2020-05-30 | Outpatient (CLI) | payer BC ==
[2020-05-30 13:25] LABS: Basophils # (A) 0.1 k/uL (0-0.2); Basophils % (A) 0 %; Eosinophils # (A) 0.6 k/uL (0-0.7); Eosinophils % (A) 3 %; HCT 31.1 % (39.0-53.0); HGB 10.2 gm/dL (13.0-17.5); Lymphocytes % (A) 4 %; MCHC 32.9 g/dL (31.0-37.0); MCV 115.2 fL (80.0-100.0); Macrocytosis Marked; Mean Platelet Volume 9.5; Monocytes # (A) 1.1 k/uL (0-1.0); Monocytes % (A) 5 %; Neutrophils # (A) 19.6 k/uL (1.3-7.7); Neutrophils % (A) 87 %; Platelet Count 154 k/uL (150-450); RDW 15.3 % (11.5-15.5); WBC 22.6 k/uL (3.8-10.6)
[2020-05-30 15:03] LABS: Toxic Granulation Present
[2020-05-30 18:17] LABS: INR 2.47 (0.90-1.11); Prothrombin Time 25.5 sec (9.9-11.9)
[2020-05-31 05:03] LABS: ALT 60 U/L (10-49); AST 83 U/L (14-35); Albumin/Globulin Ratio 1.18 (1.60-3.17); Alkaline Phosphatase 166 U/L (41-126); Amylase 131 U/L (23-121); BUN/Creat Ratio 17.75 Ratio (12.00-20.00); Bilirubin, Conjugated >22.50 mg/dL (0.20-0.40); Carbon Dioxide 12.1 mmol/L (21.6-31.8); Chloride 109 mmol/L (96-109); Globulin 2.8 g/dL (1.6-3.3); Glucose 131 mg/dL (70-110); Non-African American GFR(CKD) 15.6 (60.0-200.0); Potassium 3.4 mmol/L (3.5-5.5); Sodium 145 mmol/L (135-145); Total Protein 6.1 g/dL (6.2-8.2)
[2020-05-31 09:05] LABS: Total Bilirubin 47.7 mg/dL (0.2-1.2)
== END | disposition home or self-care (01) ==
LOC: LABWHC1 11:32
PROVIDERS: ATTEND Family Medicine
DX: K70.40 Alcoholic hepatic failure without coma (principal); I50.9 Heart failure, unspecified
CPT/HCPCS: 36415; 80053; 82140; 82150; 82248; 83690; 83880; 85025; 85610

== ENCOUNTER → 2020-06-14 | Outpatient (CLI) | payer BC ==
[2020-06-14 14:03] LABS: Basophils # (A) 0.1 k/uL (0-0.2); Basophils % (A) 0 %; Eosinophils # (A) 0.3 k/uL (0-0.7); Eosinophils % (A) 1 %; HCT 28.7 % (39.0-53.0); HGB 9.5 gm/dL (13.0-17.5); Lymphocytes % (A) 3 %; MCH 37.6 pg (25.0-35.0); MCHC 33.3 g/dL (31.0-37.0); MCV 113.1 fL (80.0-100.0); Macrocytosis Marked; Mean Platelet Volume 8.6; Monocytes # (A) 1.3 k/uL (0-1.0); Monocytes % (A) 4 %; Neutrophils # (A) 27.6 k/uL (1.3-7.7); Neutrophils % (A) 90 %; Platelet Count 249 k/uL (150-450); RBC 2.53 m/uL (4.30-5.90); RDW 14.9 % (11.5-15.5); WBC 30.5 k/uL (3.8-10.6)
[2020-06-14 14:38] LABS: Poikilocytosis (M) Present
[2020-06-14 21:14] LABS: African American GFR (CKD) 9.7 (60.0-200.0); Albumin 2.9 g/dL (3.80-4.90); Anion Gap 17.5 mmol/L (4.00-12.00); BUN/Creat Ratio 12.84 Ratio (12.00-20.00); Calcium 9.6 mg/dL (8.7-10.3); Carbon Dioxide 18.5 mmol/L (21.6-31.8); Globulin 2.9 g/dL (1.6-3.3); Magnesium 2.5 mg/dL (1.5-2.4); Non-African American GFR(CKD) 8.3 (60.0-200.0); Phosphorus 5.8 mg/dL (2.4-5.1); Potassium 4.6 mmol/L (3.5-5.5); Total Protein 5.8 g/dL (6.2-8.2)
[2020-06-17 09:38] LABS: INR 11.33 (0.90-1.11); Prothrombin Time 110.4 sec (9.9-11.9)
[2020-06-17 09:39] LABS: Total Bilirubin 44.4 mg/dL (0.2-1.2)
== END | disposition home or self-care (01) ==
LOC: LABWHC1 12:40
PROVIDERS: ATTEND Nurse Practitioner Adult Health
DX: K70.40 Alcoholic hepatic failure without coma (principal); N17.9 Acute kidney failure, unspecified; R53.1 Weakness; R53.81 Other malaise; R26.2 Difficulty in walking, not elsewhere classified
CPT/HCPCS: 36415; 80053; 80069; 82140; 83735; 85025; 85610